=== PATIENT | male | born 1950 | race Caucasian/White ===

== ENCOUNTER 2019-01-14 15:10 | Inpatient (IN) ==
[2019-01-14] MEDS ORDERED: NS 1,000 ML IV ONE (15:38)
[2019-01-14] MEDS ORDERED: ZOSYN 3.375 GM in NS 50 ML IV ONE (15:39)
[2019-01-14] MEDS ORDERED: DUONEB (A & A) INH ONE (15:39)
[2019-01-14] MEDS ORDERED: SOLU-MEDROL IV ONE (15:39)
[2019-01-14] MEDS ORDERED: S2 RACEPINEPHRINE 2.25% INH ONE (15:39)
[2019-01-14] MEDS ORDERED: SOLU-CORTEF IV ONE (15:39)
[2019-01-14] MEDS ORDERED: NS NEB INH SCH (15:45)
--- NOTE | 2019-01-14 16:30 | Diag Imaging Result Doc PS360 ---
EXAM: CHEST-1 VIEW 01/14/2019 HISTORY: POSSIBLE SEPSIS TECHNIQUE: AP portable upright at 1620 COMMENT: There are no previous plain radiographs for comparison. There is an apparent left hilar mass with atelectasis of the left upper lobe, which was also apparently present at the time of the previous CT examination. The right lung remains clear. The heart size and pulmonary vascularity are within normal limits. IMPRESSION: Postobstructive atelectasis/pneumonia in the left upper lobe. Electronically signed by Kyaw Dent 01/14/2019 4:28 PM
[2019-01-14 16:38] LABS: BASO# 0.02 X1000 (0.0-0.2); BASO% 0.1 % (0.0-0.8); EOS# 0.03 X1000 (0.0-0.7); EOS% 0.2 % (0.0-10.0); HEMATOCRIT 47.9 % (42.0-52.0); HEMOGLOBIN 16.1 g/dL (14.0-18.0); IMM GRAN# 0.11 X1000 (0.0-0.04); IMM GRAN% 0.8 % (0.0-0.5); LYMPH# 1.06 X1000 (1.2-3.4); LYMPH% 7.5 % (20.5-51.1); MCH 29.8 PG (27-31); MCHC 33.6 g/dL (33-37); MCV 88.7 FL (81-99); MONO# 0.57 X1000 (0.11-0.59); MPV 10.2 FL (7.4-10.4); NEUT% 87.4 % (42.2-75.2); PLT 248 X1000 (130-400); WBC 14.09 X1000 (4.8-10.8)
[2019-01-14 16:42] LABS: INR 0.88; PROTIME 12.7 Seconds (11.0-16.0); PTT 22.8 Seconds (22.3-41.8)
[2019-01-14] MEDS ORDERED: PULMICORT INH ONE (16:48)
[2019-01-14 17:07] LABS: AGAP 14; ALB/GLOB RATIO 1.9; ALBUMIN 4.6 g/dL (3.5-5.0); ALKALINE PHOSPHATASE 75 U/L (32-122); BUN 18 mg/dL (8-22); CALCIUM 10.1 mg/dL (8.8-10.2); CHLORIDE 96 mmol/L (98-107); CK PROFILE 77 U/L (24-204); COSMO 286; ESTIMATED GFR > 60; GLUCOSE 256 mg/dL (70-104); GOT 20 U/L (10-34); GPT 69 U/L (10-44); POTASSIUM 4.9 mmol/L (3.5-5.1); SODIUM 138 mmol/L (136-145); TCO2 28 mmol/L (25-35)
[2019-01-14 17:12] LABS: URINE SOURCE CLEAN CATCH
[2019-01-14 17:23] LABS: BILIRUBIN URINE NEGATIVE (NEGATIVE); BLOOD URINE NEGATIVE (NEGATIVE); COLOR YELLOW; GLUCOSE URINE >1000 mg/dL (NEGATIVE); KETONE URINE NEGATIVE (NEGATIVE); LEUKOCYTES URINE NEGATIVE (NEGATIVE); NITRITE URINE NEGATIVE (NEGATIVE); PH URINE 6.5; PROTEIN URINE NEGATIVE (NEGATIVE); TURBIDITY URINE CLEAR (CLEAR); UROBILINOGEN URINE NORMAL (NORMAL)
[2019-01-14 17:30] LABS: UR EPITHELIAL CELLS <10 /HPF (<10); URINE BACTERIA NEGATIVE /HPF; URINE RBC <10 /HPF (<10); URINE WBC <10 /HPF (<10)
[2019-01-14] MEDS ORDERED: VANCOMYCIN 1 GM/NS 1 GM/250 ML IVPB IV ONE (17:47)
--- NOTE | 2019-01-14 18:17 | PROVIDER DOCUMENTATION ---
This chart was entered by Marisela Rouse Scribe, acting as scribe for Michael Alicia MD. HPI-Respiratory General - General Source: patient, other (friend) - History of Present Illness-Resp Quality of Pain: reports: fullness Severity in ED: reports: moderate Onset/Duration: reports: other (10hrs) Timing: reports: still present, constant, getting worse Cough Quality/Degree: reports: no cough Episode Frequency: chronic episodes Current Respiratory Medication Therapy: Initiated see nurses note Modifying Factors: worse with: exertion Associated Symptoms: reports: shortness of breath. denies: chest pain/soreness, cough, wheezing Similar Symptoms Previously?: Yes Recently seen or treated by another doctor?: Yes (was recently dx with lung cancer and dc from ) <Michael Alicia - Last Filed: 01/14/19 18:30> <Red Saab - Last Filed: 01/14/19 19:46> - General Chief Complaint: SEPSIS ALERT - D Stated Complaint: THROAT CLOSING UP CANT BREATHE Time Seen by Provider: 01/14/19 15:31 Allergies/Adverse Reactions: Patient Allergies Allergy/AdvReac Type Severity Reaction Status Date / Time Latex, Natural Rubber Allergy SWELLING Verified 01/14/19 19:40 racepinephrine Allergy ANAPHYLAXIS Verified 01/14/19 19:40 Sulfa (Sulfonamide Allergy RASH Verified 01/14/19 19:40 Antibiotics) diazepam [From Valium] AdvReac Mild Unknown Verified 01/14/19 19:40 - History of Present Illness-Resp Nature of Presenting Problem: 68 yowm presents to the ed with his friend. pt sts was recently dx with lung cancer 4 months prior and sts now sts "it feels like my glands in my neck are swollen especially on the right side" no swelling is noted on exam. pt sts he has been seen by ENT without any explanation for the feeling in his neck. pt sts had a recent PET scan and the cancer is only in his lung. pt was dc from 1 week prior and sts he thinks he was let go to soon because while there and on a certain abx he felt much better. pt on exam is sob with exertion and speaking in 3-4 word sentences. pt is on 3 LPM via NC. pt is anxious on exam (Michael Alicia) Review of Systems - Adult - REVIEW OF SYSTEMS - ADULT Constitutional: denies: chills, fever Eyes: reports: no symptoms reported Ears, Nose, Mouth & Throat: reports: see HPI, throat pain, throat swelling. denies: hoarseness Cardiovascular: denies: chest pain, orthopnea, palpitations Respiratory: reports: dyspnea on exertion, shortness of breath. denies: cough, wheezing Gastrointestinal: denies: abdominal pain, diarrhea, nausea, vomiting Genitourinary: reports: no symptoms reported Musculoskeletal: denies: back pain, neck pain Integumentary: reports: no symptoms reported Neurological: denies: dizziness/vertigo, headache/migraines Psychiatric: reports: no symptoms reported Endocrine: reports: no symptoms reported Hematologic/Lymphatic: reports: no symptoms reported Allergic/Immunologic: reports: no symptoms reported All Other Systems: Reviewed and Negative <Michael Alicia - Last Filed: 01/14/19 18:30> Past History - Adult - PAST MEDICAL HISTORY-ADULT Review of Records: reports: Old Records Reviewed, Nursing Assessment Review, Medications Reviewed, Social history reviewed & non-contributory. Major Childhood Illnesses: reports: denies history Cardiovascular: reports: HTN Respiratory: reports: cancer Gastrointestinal: reports: denies history Genitourinary: reports: denies history Musculoskeletal: reports: denies history Hand Dominance: Right Handed Neurological: reports: denies history Psychiatric: reports: denies history Endocrine/Immune: reports: denies history Other Conditions: reports: denies history - PRIOR SURGERIES/PROCEDURES Surgical/Procedure History: reports: bowel surgery, other (nasal and orbital sx) - IMMUNIZATION STATUS Childhood Immunizations: See Nurse Assessment Flu Vaccine: See Nurse Assessment - FAMILY HISTORY Family History: reviewed, not pertinent - SOCIAL HISTORY Smoking: other (vapes) Provider spent 3-5 mins advising pt. on dangers of tobacco.: Discussed manners to quit use, and f/u contacts for add'l counseling. Substance Use: denies Living Situation: family <Michael Alicia - Last Filed: 01/14/19 18:30> Physical Exam-General - PHYSICAL EXAM-ADULT Initial Vital Signs Reviewed: Yes - CONSTITUTIONAL General Appearance: alert, mild distress, anxious - EYES Eyes: PERRL/EOMI, pink conjunctivae - HEAD, EARS, NOSE, MOUTH & THROAT HENMT: moist mucous membranes, dental decay - NECK Neck: full range of motion, supple, normal inspection, other (pt sts "it feels like my glands are swelling" no swelling seen on exam). negative: lymphadenopathy - RESPIRATORY Respiratory: chest non-tender, respiratory distress, stridor, increased rate (24) - CARDIOVASCULAR Cardiovascular: normal peripheral pulses, tachycardia (107) - GASTROINTESTINAL (ABDOMEN) Abdominal Exam: normal bowel sounds, non tender, soft - LYMPHATIC Lymphatic: no adenopathy. negative: cervical node tenderness - MUSCULOSKELETAL Back Exam: normal inspection, no CVA tenderness, no vertebral tenderness Extremity: normal range of motion, non-tender, normal gait, normal inspection - SKIN Integumentary: normal color, normal turgor, warm/dry - NEUROLOGIC Neurologic: grossly normal, no motor/sensory deficits - PSYCHIATRIC Psych/Mental Status: normal mood/affect, normal thought content, normal thought process, oriented x 3, anxious <Michael Alicia - Last Filed: 01/14/19 18:30> Progress - PLAN OF CARE/RESULTS Result Diagrams: 01/14/19 16:08 01/14/19 16:08 - REASSESSMENT Reassessment #1 Time Reassessed: 18:15 Status: improving (Given IVF bolus, IV Vanco/Zosyn for HCAP sepsis, pulmicort and duoneb for stridor, IV hydrocortisone for stress dose steroids and IV solumedrol. Awaiting CT neck for admission) - CHANGE OF SHIFT REPORT (ED Provider) 1 Report Given and Care Transferred to:: [facility] Time of Transfer: 18:16 Items Pending: CT/MRI Results (soft tissue neck) <Michael Alicia - Last Filed: 01/14/19 18:30> - PLAN OF CARE/RESULTS Result Diagrams: 01/14/19 16:08 01/14/19 16:08 <Red Saab - Last Filed: 01/14/19 19:46> - PLAN OF CARE/RESULTS Progress/Plan/Lab Results: Vital Signs - 8 hr 01/14/19 15:15 01/14/19 16:28 01/14/19 16:30 Temperature 97.7 F Pulse Rate 107 H 97 H 97 H Respiratory Rate 21 23 21 Blood Pressure 126/89 O2 Sat by Pulse Oximetry 98 96 95 01/14/19 16:35 01/14/19 16:38 01/14/19 17:31 Temperature Pulse Rate 90 90 94 H Respiratory Rate 22 18 19 Blood Pressure 116/81 O2 Sat by Pulse Oximetry 96 97 98 01/14/19 17:54 01/14/19 19:37 Temperature 98.0 F Pulse Rate 95 H 94 H Respiratory Rate 20 18 Blood Pressure 124/83 143/86 O2 Sat by Pulse Oximetry 94 L 95 01/14/19 17:05 Group A Strep Rapid Antigen - Final Throat Laboratory Results - last 24 hr 01/14/19 01/14/19 01/14/19 16:08 16:08 16:08 WBC 14.09 H RBC 5.40 Hgb 16.1 Hct 47.9 MCV 88.7 MCH 29.8 MCHC 33.6 RDW Std Deviation 16.0 H Plt Count 248 MPV 10.2 Immature Gran % (Auto) 0.8 H Neut % (Auto) 87.4 H Lymph % (Auto) 7.5 L [place] % (Auto) 4.0 Eos % (Auto) 0.2 Baso % (Auto) 0.1 Immature Gran # (Auto) 0.11 H Neut # (Auto) 12.30 H Lymph # (Auto) 1.06 L [place] # (Auto) 0.57 Eos # (Auto) 0.03 Baso # (Auto) 0.02 PT INR PTT (Actin FS) Sodium 138 Potassium 4.9 Chloride 96 L Carbon Dioxide 28 Anion Gap 14 BUN 18 Creatinine 1.0 Estimated GFR/1.73 m2 > 60 BUN/Creatinine Ratio 18 Glucose 256 H Calculated Osmolality 286 Calcium 10.1 Total Bilirubin 0.60 AST 20 ALT 69 H Alkaline Phosphatase 75 Creatine Kinase 77 Troponin T Total Protein 7.0 Albumin 4.6 Globulin 2.4 Albumin/Globulin Ratio 1.9 Plasma Lactate Cortisol 4.1 Urine Source Urine Color Urine Turbidity Urine pH Ur Specific [place] Urine Protein Ur Glucose (Stick) Ur Ketones (Stick) Urine Blood Urine Nitrite Urine Bilirubin Urobilinogen Dipstick Urine Leukocytes Urine WBC (Auto) Urine RBC (Auto) U Epithel Cells (Auto) Urine Bacteria (Auto) 01/14/19 01/14/19 01/14/19 16:08 16:08 16:08 WBC RBC Hgb Hct MCV MCH MCHC RDW Std Deviation Plt Count MPV Immature Gran % (Auto) Neut % (Auto) Lymph % (Auto) [place] % (Auto) Eos % (Auto) Baso % (Auto) Immature Gran # (Auto) Neut # (Auto) Lymph # (Auto) [place] # (Auto) Eos # (Auto) Baso # (Auto) PT 12.7 INR 0.88 PTT (Actin FS) 22.8 Sodium Potassium Chloride Carbon Dioxide Anion Gap BUN Creatinine Estimated GFR/1.73 m2 BUN/Creatinine Ratio Glucose Calculated Osmolality Calcium Total Bilirubin AST ALT Alkaline Phosphatase Creatine Kinase Troponin T < 0.010 Total Protein Albumin Globulin Albumin/Globulin Ratio Plasma Lactate 2.5 H Cortisol Urine Source Urine Color Urine Turbidity Urine pH Ur Specific [place] Urine Protein Ur Glucose (Stick) Ur Ketones (Stick) Urine Blood Urine Nitrite Urine Bilirubin Urobilinogen Dipstick Urine Leukocytes Urine WBC (Auto) Urine RBC (Auto) U Epithel Cells (Auto) Urine Bacteria (Auto) 01/14/19 17:00 WBC RBC Hgb Hct MCV MCH MCHC RDW Std Deviation Plt Count MPV Immature Gran % (Auto) Neut % (Auto) Lymph % (Auto) [place] % (Auto) Eos % (Auto) Baso % (Auto) Immature Gran # (Auto) Neut # (Auto) Lymph # (Auto) [place] # (Auto) Eos # (Auto) Baso # (Auto) PT INR PTT (Actin FS) Sodium Potassium Chloride Carbon Dioxide Anion Gap BUN Creatinine Estimated GFR/1.73 m2 BUN/Creatinine Ratio Glucose Calculated Osmolality Calcium Total Bilirubin AST ALT Alkaline Phosphatase Creatine Kinase Troponin T Total Protein Albumin Globulin Albumin/Globulin Ratio Plasma Lactate Cortisol Urine Source CLEAN CATCH Urine Color YELLOW Urine Turbidity CLEAR Urine pH 6.5 Ur Specific [place] 1.020 Urine Protein NEGATIVE Ur Glucose (Stick) >1000 A Ur Ketones (Stick) NEGATIVE Urine Blood NEGATIVE Urine Nitrite NEGATIVE Urine Bilirubin NEGATIVE Urobilinogen Dipstick NORMAL Urine Leukocytes NEGATIVE Urine WBC (Auto) <10 Urine RBC (Auto) <10 U Epithel Cells (Auto) <10 Urine Bacteria (Auto) NEGATIVE Orders Category Date Time Status Cardiac Monitoring DIRECTED Care 01/14/19 15:24 Active IV Insertion ORDERED Care 01/14/19 15:24 Completed Notify MD of + Sepsis Screen NOW Care 01/14/19 15:24 Active Notify Physician As Ordered Care 01/14/19 15:24 Active CHEST-1 VIEW [RAD] Stat Exams 01/14/19 15:[address] NECK W/CONTRAST [CT] Stat Exams 01/14/19 15:41 Completed BLOOD CULTURE [BLDCUL] Stat Lab 01/14/19 16:20 Results CBC WITH DIFF [HEME] Stat Lab 01/14/19 16:08 Completed CK PROFILE [SP CHEM] Stat Lab 01/14/19 16:08 Completed COMPREHENSIVE METABOLIC PANEL [CHEM] Stat Lab 01/14/19 16:08 Completed CORTISOL Stat Lab 01/14/19 16:08 Completed DIRECT STREP Stat Lab 01/14/19 17:05 Completed LACTATE, PLASMA [CHEM] Lab 01/14/19 16:08 Completed LACTATE, PLASMA [CHEM] Lab 01/14/19 19:25 Received LACTATE, PLASMA [CHEM] Lab 01/14/19 21:30 Uncollected PROTIME WITH INR [COAG] Stat Lab 01/14/19 16:08 Completed PTT [COAG] Stat Lab 01/14/19 16:08 Completed TROPONIN T Stat Lab 01/14/19 16:08 Completed URINALYSIS W/POSS RFLX CULT [URINALYSIS] Stat Lab 01/14/19 17:00 Completed 0.9% Sodium Chloride Inj [Ns] 1,000 ml Med 01/14/19 15:38 Discontinued IV 999 mls/hr Albuterol 2.5MG/Ipratrop 0.5MG [Duoneb (A & A)] Med 01/14/19 15:39 Discontinued 3 ml INH NOW ONE Budesonide [Pulmicort] Med 01/14/19 16:48 Discontinued 0.25 mg INH NOW ONE Hydrocortisone Sod Succinate [Solu-Cortef] Med 01/14/19 15:39 Discontinued 100 mg IV NOW ONE Methylprednisolone Sod Succ [Solu-Medrol] Med 01/14/19 15:39 Discontinued 125 mg IV NOW ONE Piperacillin/Tazobactam [Zosyn] 3.375 gm Med 01/14/19 15:39 Discontinued 0.9% Sodium Chloride Inj [Ns] 50 ml IV NOW Racepinephrine 2.25% [S2 Racepinephrine 2.25%] Med 01/14/19 15:39 Discontinued 1 each INH NOW ONE Sodium Chloride 0.9% Neb [Ns Neb] Med 01/14/19 15:45 Active 5 ml INH DIRECTED Vancomycin 1 gm/Ns Med 01/14/19 17:47 Discontinued 1 gm in 250 ml IV NOW Aerosol Treatments Routine Oth 01/14/19 15:40 Completed Aerosol Treatments Routine Oth 01/14/19 16:48 Completed Aerosol Treatments Stat Ot 01/14/19 15:40 Completed Aerosol Treatments Stat Oth 01/14/19 16:48 Completed Oxygen Device Stat Ot 01/14/19 15:24 Completed Departure <Michael Alicia - Last Filed: 01/14/19 18:30> - Departure Date of Disposition Decision: 01/14/19 Time of Disposition Decision: 19:45 Certified Medical Emergency: Emergent - Critical Care Note This patient required my direct & personal management of CC.: No <Red Saab - Last Filed: 01/14/19 19:46> - Departure DIAGNOSIS: Pneumonia Qualifiers: Pneumonia type: due to unspecified organism Laterality: right Lung location: unspecified part of lung Qualified Code(s): J18.9 - Pneumonia, unspecified organism Disposition: ADMITTED INPATIENT 09 Condition: Stable Referrals and Follow-Ups: Uziel Frank [Primary Care Provider] - Attestation - Physician/ CRISTINA Attestation Patient care was provided by Advanced Practice Provider:: No The physician spent face to face time with patient:: Yes Advanced Practice Provider documentation review:: Supervising physician onsite and consulted in the evaluation and care of this patient. The physician did have a face to face encounter with the patient. <Michael Alicia - Last Filed: 01/14/19 18:30> This chart was documented by the indicated scribe, (Marisela Rouse Scribe) and accurately reflects the services I performed and decisions made by me, Michael Alicia MD, as attested by the provider's signature.
--- NOTE | 2019-01-14 19:24 | Diag Imaging Result Doc PS360 ---
EXAM: CT NECK W/CONTRAST INDICATION: stridor, lung cancer, sepsis TECHNIQUE: This exam was performed using automated exposure control, adjustment of mA or kV according to patient size, and/or use of iterative reconstruction technique. COMPARISON: Prior CT chest dated 12/24/2018. No prior dedicated CT neck is available for comparison. FINDINGS: The salivary glands and thyroid are unremarkable. There is no evidence of significant cervical lymphadenopathy or adenoidal hypertrophy. The upper airway is patent. The larynx is unremarkable. The cervical aerodigestive tract is grossly unremarkable, otherwise. No soft tissue neck masses or cysts are identified. Review of the upper thorax reveals the known left perihilar mass that is causing postobstructive left upper lobe atelectasis. This is stable as compared to the recent chest CT. IMPRESSION: 1.Patent upper airway. Unremarkable neck soft tissues, otherwise. 2.Stable left perihilar lung mass with associated left upper lobe obstructive atelectasis. Electronically signed by Jorge Luis Gomez 01/14/2019 7:21 PM
--- NOTE | 2019-01-14 21:39 | HISTORY AND PHYSICAL ---
PRIMARY CARE PHYSICIAN: Uziel Frank. REASON FOR ADMISSION: Shortness of breath. Upper airway difficulty breathing for the last 2 days. HISTORY OF PRESENT ILLNESS: Mr. Tobias Hayes is a 68-year-old male with a past medical history of type 2 diabetes, hypertension, and lung cancer. Comes in today complaining of a 2-day history of neck sensation of throat narrowing and upper airway difficult breathing. He says he has had these spells intermittently and infrequently in the last couple of months. He was recently discharged from [facility] last week for a pneumonia and sent home on Augmentin for which he has completed treatment. He came to the ER because in addition to the neck swelling and throat narrowing, he had an episode of hemoptysis yesterday but no fever or chills. He said he would estimate it to be about least table spoon amount of blood. He denies orthopnea or PND. On arrival to the ER, the patient was reportedly anxious and was having mild dyspnea on exertion. Today, he states that he also felt that his "neck glands" were swollen today and was having a hard time talking while he was short of breath. He denies any leg swelling. Any chest pain or ischemic type symptoms. No GI or complaints at this point in time. No postnasal drip. REVIEW OF SYSTEMS: Twelve system review was done. No polyuria or polydipsia. Positive findings noted as above. ALLERGIES: He is allergic to racemic epinephrine, latex, natural rubber, sulfur and benzodiazepine, i.e. Valium. HOME MEDICATION: He takes Tessalon 200 mg t.i.d. p.r.n., Pepcid 40 mg daily, guaifenesin 600 mg p.r.n., Ativan 0.5 mg b.i.d. p.r.n., Hyzaar 50/12.5 mg daily, metformin 500 mg daily. He was on a Medrol Dosepak and Zofran 4 mg q.6 p.r.n. SURGICAL HISTORY: Notable for partial colectomy for diverticulosis, lipoma excision, nasal surgery. SOCIAL HISTORY: He stopped smoking 6 months ago. Lives alone. No alcohol or drug use. FAMILY HISTORY: Notable for diabetes and heart disease. LABORATORY WORK: CT scan of the neck showed no abnormality. The chest film showed left upper lobe postobstructive pneumonia. White count 14,000. H H 16 and 47, platelets 248,000, 87% neutrophils. Chemistry showed a BUN 18, creatinine 1.0, glucose 256. AST 20, ALT 69. Troponin is negative. PTT is normal. Urinalysis showed glucose greater than 1000. Strep was negative. EXAMINATION: Vital signs: Blood pressure 152/99, heart rate 110, respiratory rate 20, temperature is 98.1. He is 95% on 2 L. General: Middle-aged man who is not in acute distress. He is anxious. He is oriented to person, place and time. Normal mood and affect. HEENT: Head is normocephalic, atraumatic. Eyes, [place], EOMI. He is anicteric and not pale. ENT exam is totally normal. No exudates or erythema. No signs of cyanosis. Neck: Supple. No JVD or carotid bruit. No thyromegaly. Lymph nodes: No palpable cervical or supraclavicular lymphadenopathy. Chest: Surprisingly is clear to auscultation. Good air entry bilat.. Cardiovascular: First and sounds heard. No gallops, murmurs, rubs. Rhythm is regular. Abdomen: Slightly protuberant, soft. No focal tenderness. Bowel sounds normal. Rectal: Deferred at this time. Extremities: Patient has no edema, clubbing or peripheral cyanosis. Good distal pulse volumes and extremities are warm with good capillary refill. Neurological: Is grossly normal. Skin: Is intact. No breakdown, lesion, erythema. Musculoskeletal: Exam is grossly normal. ASSESSMENT: 1. Left upper lobe postobstructive pneumonia. 2. Type 2 diabetes, uncontrolled. 3. Lung cancer. 4. Hypertension. 5. Upper airway disorder? 6. Vocal cord disorder upper? 7. Globus hystericus. PLAN: 1. Treat patient probably for no more than 5 days with meropenem and Zyvox for probable postobstructive pneumonia, healthcare related. 2. Continue breathing treatments. The patient tells me he has seen 3 different ENT doctors in the past to address this upper airway issue and all of them have told him that they have not been able to find any reason for his symptoms. CT scan of the neck was normal. We will get a 4th opinion with Dr. Alcantara to see him tomorrow. As much as I do not like to discount an organic etiology for his symptoms, globus hystericus, which is a diagnosis of exclusion, should be entertained in this patient. Especially since his demeanor is somewhat of an anxious type. 3. Regarding patient's diabetes, we will cover with sliding scale. cc: MD Uziel Ellison MD MTDD
[2019-01-14] MEDS ORDERED: TYLENOL PO PRN (21:40)
[2019-01-14] MEDS ORDERED: NS 1,000 ML IV SCH (21:40)
[2019-01-14] MEDS ORDERED: CHLORASEPTIC SPRAY MT PRN (22:07)
[2019-01-14] MEDS ORDERED: PERCOCET-10 PO SCH (22:30)
[2019-01-14] MEDS: MERREM 1 GM in NS 50 ML IV SCH (22:32)
[2019-01-14] MEDS: ZYVOX PO SCH (22:33)
[2019-01-14] MEDS: MUCINEX PO SCH (22:33)
[2019-01-14] MEDS: LOVENOX SUBQ SCH ×2 (22:34→23:43)
[2019-01-14] MEDS: HUMALOG SUBQ SCH (22:34)
[2019-01-14] MEDS: DUONEB (A & A) INH SCH (22:43)
[2019-01-15] MEDS ORDERED: PERCOCET-10 PO PRN (00:23)
[2019-01-15] MEDS: DUONEB (A & A) INH SCH ×4 (03:08→21:05)
[2019-01-15] MEDS: ATIVAN PO PRN (03:46)
[2019-01-15] MEDS: MERREM 1 GM in NS 50 ML IV SCH ×4 (03:47→22:20)
[2019-01-15] MEDS: HUMALOG SUBQ SCH ×3 (06:07→22:20)
[2019-01-15 07:12] LABS: HEMATOCRIT 41.9 % (42.0-52.0); IMM GRAN# 0.06 X1000 (0.0-0.04); IMM GRAN% 0.5 % (0.0-0.5); LYMPH% 6.6 % (20.5-51.1); MCH 29.7 PG (27-31); MCHC 33.4 g/dL (33-37); MONO# 0.51 X1000 (0.11-0.59); MONO% 4.2 % (1.7-9.3); MPV 10.2 FL (7.4-10.4); NEUT# 10.79 X1000 (1.4-6.5); NEUT% 88.7 % (42.2-75.2); PLT 191 X1000 (130-400); RBC 4.71 XMIL (4.7-6.1); RDW 15.4 % (11.5-14.5); WBC 12.16 X1000 (4.8-10.8)
[2019-01-15 07:27] LABS: AGAP 13; BUN 18 mg/dL (8-22); CALCIUM 8.2 mg/dL (8.8-10.2); CHLORIDE 100 mmol/L (98-107); COSMO 285; CREATININE 0.8 mg/dL (0.7-1.2); ESTIMATED GFR > 60; GLUCOSE 268 mg/dL (70-104); POTASSIUM 3.7 mmol/L (3.5-5.1); SODIUM 137 mmol/L (136-145); TCO2 24 mmol/L (25-35)
[2019-01-15] MEDS: PEPCID PO SCH (08:52)
[2019-01-15] MEDS: ZYVOX PO SCH ×2 (08:52→22:20)
[2019-01-15] MEDS: HYZAAR 50/12.5 MG PO SCH (08:52)
[2019-01-15] MEDS: MUCINEX PO SCH ×2 (08:52→22:20)
[2019-01-15] MEDS: PERCOCET-10 PO PRN ×3 (13:33→22:28)
--- NOTE | 2019-01-15 13:57 | PROGRESS NOTE ---
DATE: 01/15/2019 SUBJECTIVE: The patient reports feeling fine. Denies any fever or chills. OBJECTIVE: Vitals: Temperature is 98.0, heart rate 78, respiratory rate 20, blood pressure 124/93, O2 saturation 96% on 2 L nasal cannula. General Examination: This is a chronically ill- appearing, 68-year-old, male, lying in bed, in no acute distress. Cardiovascular Examination: S1 and S2 heard. No murmurs, gallops, or rubs. Regular rate and rhythm. Respiratory Examination: Clear bilaterally to auscultation. No work of breathing or using accessory muscles. Abdomen: Soft, nontender to palpation. Bowel sounds present. No organomegaly. Extremities: No clubbing, cyanosis, or edema. Peripheral pulses present in both legs. Neurological Examination: The patient is alert and oriented x3. Moves 4 extremities. Laboratory Data: Reviewed. ASSESSMENT AND PLAN: 1. Left upper lobe postobstructive pneumonia. Patient has been recently discharged from the hospital. As such, we are going to treat this pneumonia like a healthcare-acquired so patient has been started on admission on Zyvox and meropenem. We will continue with the same management. 2. Diabetes mellitus type 2, uncontrolled. The patient is going to be started on sliding scale insulin; in this case, lispro. 3. Hypertension. We will continue with blood pressure medications. 4. Lung cancer. Stable. I do not think we need to consult oncology at this time. 5. Vocal cord disorder. He has been seen by three different ENT doctors who did not find anything wrong in the upper airway. He has been seen by our ENT here who did not find anything wrong so at this point, we will just monitor this patient. cc: Tee Barillas MD
--- NOTE | 2019-01-15 14:30 | CONSULTATION ---
DATE OF CONSULTATION: 01/15/2019 HISTORY OF PRESENT ILLNESS: The patient is the gentleman with a long history of airway issues. Today, he reports that he has cancer in the left lung, and he is undergoing consideration for resection. He has had trouble with shortness of breath and some stridor. He was admitted from the ER last night. He has been in the hospital at [place] for similar issues. While there, he has had at least 2 separate ENT exams of his larynx, which were supposedly normal. He has seen the [facility] in [place] and reports that the ENT there did not see any abnormality in his larynx. Past medical history, family history, review of systems, see his chart. PHYSICAL EXAMINATION: With fiberoptic scope, the left nasal cavity is cannulated and the scope is placed through the nasal cavity into the nasopharynx and into the hypopharynx. The hypopharynx is noted to be normal. The larynx is noted to be normal. The cords move well. The airway is well. I cannot see well into the subglottic area, but what I see appears normal. The base of tongue is normal. IMPRESSION: Normal exam in the larynx. His shortness of breath and stridor and hemoptysis are coming from this area below. Discussed this with the attending physician. cc: Yehuda Ennis MD
[2019-01-15] MEDS: LOVENOX SUBQ SCH (22:22)
[2019-01-16] MEDS: DUONEB (A & A) INH SCH ×7 (03:08→23:08)
[2019-01-16] MEDS: ATIVAN PO PRN (04:02)
[2019-01-16] MEDS: PERCOCET-10 PO PRN ×4 (04:02→18:58)
[2019-01-16] MEDS: MERREM 1 GM in NS 50 ML IV SCH ×3 (04:47→22:30)
[2019-01-16] MEDS: HUMALOG SUBQ SCH ×4 (06:21→22:44)
[2019-01-16 07:14] LABS: BASO# 0.02 X1000 (0.0-0.2); BASO% 0.2 % (0.0-0.8); EOS# 0.11 X1000 (0.0-0.7); EOS% 1.1 % (0.0-10.0); HEMOGLOBIN 13.6 g/dL (14.0-18.0); IMM GRAN# 0.08 X1000 (0.0-0.04); IMM GRAN% 0.8 % (0.0-0.5); LYMPH% 18.1 % (20.5-51.1); MCH 29.8 PG (27-31); MCHC 33.2 g/dL (33-37); MCV 89.7 FL (81-99); MONO# 0.92 X1000 (0.11-0.59); MONO% 9.3 % (1.7-9.3); MPV 10.1 FL (7.4-10.4); NEUT# 7.01 X1000 (1.4-6.5); NEUT% 70.5 % (42.2-75.2); PLT 188 X1000 (130-400); RBC 4.57 XMIL (4.7-6.1); RDW 15.9 % (11.5-14.5); WBC 9.94 X1000 (4.8-10.8)
[2019-01-16 07:41] LABS: AGAP 13; BUN 26 mg/dL (8-22); CALCIUM 8.1 mg/dL (8.8-10.2); CHLORIDE 102 mmol/L (98-107); COSMO 285; CREATININE 0.9 mg/dL (0.7-1.2); ESTIMATED GFR > 60; GLUCOSE 183 mg/dL (70-104); POTASSIUM 3.6 mmol/L (3.5-5.1); SODIUM 138 mmol/L (136-145); TCO2 23 mmol/L (25-35)
[2019-01-16] MEDS: MUCINEX PO SCH ×2 (09:09→22:34)
[2019-01-16] MEDS: HYZAAR 50/12.5 MG PO SCH (09:09)
[2019-01-16] MEDS: PEPCID PO SCH ×2 (09:09→22:34)
[2019-01-16] MEDS: ZYVOX PO SCH ×2 (09:09→22:35)
[2019-01-16] MEDS: ADDERALL PO SCH ×3 (10:29→16:48)
[2019-01-16] MEDS: PRILOSEC PO SCH ×2 (10:30→22:34)
--- NOTE | 2019-01-16 11:13 | PROGRESS NOTE ---
DATE: 01/16/2019 SUBJECTIVE: Patient reports feeling fine. OBJECTIVE: Vital Signs: Temperature 97.6 degrees, heart rate 82, respiratory rate 20, blood pressure 124/84, O2 saturation 97% on 3 L nasal cannula. General Examination: This is a chronically ill-appearing, 68-year-old, male, lying in bed, in no acute distress. Cardiovascular Examination: S1 and S2 heard. No murmurs, gallops, or rubs. Regular rate and rhythm. Respiratory Examination: Coarse breath sounds and wheezing noted in both pulmonary bases. Patient is not using any accessory muscles or having work of breathing. Abdomen: Soft, nontender to palpation. Bowel sounds present. No organomegaly. Extremities: No clubbing, cyanosis, or edema. Peripheral pulses present in both legs. Neurological Examination: The patient is alert and oriented x3. Moves 4 extremities. Laboratory Data: Reviewed. ASSESSMENT AND PLAN: 1. Left upper lobe postobstructive pneumonia. We will continue with Zyvox and meropenem. Clinically, this patient is doing much better. Breathing okay so we will continue with the same management. 2. Diabetes mellitus type 2. We will continue with the sliding-scale insulin and Accu-Chek before meals and also at bedtime. 3. Hypertension. We will continue with blood pressure medications. 4. Lung cancer. Stable. 5. Vocal cord disorder. The patient has been evaluated by ears, nose, and throat, and everything is okay from their standpoint. 6. Disposition. We will continue to monitor this patient closely. cc: Tee Barillas MD
[2019-01-16] MEDS: TUMS EXTRA STRENGTH PO PRN (12:29)
[2019-01-16] MEDS: LOVENOX SUBQ SCH (22:39)
[2019-01-17] MEDS: TUMS EXTRA STRENGTH PO PRN ×3 (00:03→20:58)
[2019-01-17] MEDS: PERCOCET-10 PO PRN ×4 (02:00→20:58)
[2019-01-17] MEDS: DUONEB (A & A) INH SCH ×6 (03:33→23:53)
[2019-01-17] MEDS: HUMALOG SUBQ SCH ×4 (06:24→20:58)
[2019-01-17] MEDS: MERREM 1 GM in NS 50 ML IV SCH ×3 (06:41→20:59)
[2019-01-17 06:47] LABS: BASO# 0.02 X1000 (0.0-0.2); BASO% 0.3 % (0.0-0.8); EOS# 0.15 X1000 (0.0-0.7); EOS% 2.1 % (0.0-10.0); HEMATOCRIT 40.8 % (42.0-52.0); HEMOGLOBIN 13.6 g/dL (14.0-18.0); IMM GRAN# 0.03 X1000 (0.0-0.04); IMM GRAN% 0.4 % (0.0-0.5); LYMPH# 1.35 X1000 (1.2-3.4); LYMPH% 18.9 % (20.5-51.1); MCHC 33.3 g/dL (33-37); MCV 89.9 FL (81-99); MONO# 0.62 X1000 (0.11-0.59); MONO% 8.7 % (1.7-9.3); MPV 9.9 FL (7.4-10.4); NEUT# 4.99 X1000 (1.4-6.5); NEUT% 69.6 % (42.2-75.2); PLT 165 X1000 (130-400); RBC 4.54 XMIL (4.7-6.1); RDW 15.4 % (11.5-14.5); WBC 7.16 X1000 (4.8-10.8)
[2019-01-17] MEDS: MIRALAX PO PRN (06:48)
[2019-01-17 07:05] LABS: AGAP 11; BUN 16 mg/dL (8-22); CALCIUM 8.3 mg/dL (8.8-10.2); CHLORIDE 100 mmol/L (98-107); COSMO 274; CREATININE 0.9 mg/dL (0.7-1.2); ESTIMATED GFR > 60; GLUCOSE 155 mg/dL (70-104); POTASSIUM 3.7 mmol/L (3.5-5.1); SODIUM 135 mmol/L (136-145); TCO2 24 mmol/L (25-35)
[2019-01-17] MEDS: ADDERALL PO SCH ×3 (09:11→16:54)
[2019-01-17] MEDS: ZYVOX PO SCH ×2 (09:11→20:58)
[2019-01-17] MEDS: HYZAAR 50/12.5 MG PO SCH (09:11)
[2019-01-17] MEDS: PEPCID PO SCH ×2 (09:11→20:58)
[2019-01-17] MEDS: MUCINEX PO SCH ×2 (09:11→20:57)
[2019-01-17] MEDS: PRILOSEC PO SCH ×2 (09:13→20:57)
[2019-01-17] MEDS: MUCOMYST 20% INH SCH ×2 (11:13→19:52)
--- NOTE | 2019-01-17 12:02 | PROGRESS NOTE ---
DATE: 01/17/2019 SUBJECTIVE: Patient reports feeling fine. He mentioned while he was in the [facility], he had one AC unit that was apparently full of mold, and he is afraid that he may have caught a fungal infection. OBJECTIVE: Vital Signs: Temperature 97.6 degrees, heart rate 79, respiratory rate 18, blood pressure 125/68, and O2 saturation 98% on room air. General: This is a chronically ill- appearing, 68-year-old male lying in bed in no acute distress. Cardiovascular: S1, S2 heard. No murmurs, gallops, or rubs. Regular rate and rhythm. Respiratory: Bilateral breath sounds. No wheezing noted in both pulmonary bases. The patient is not using any accessory muscles or having work of breathing. Abdomen: Soft. Nontender to palpation. Bowel sounds present. No organomegaly. Extremities: No clubbing, cyanosis, or edema. Peripheral pulses present in both legs. Neurological: Patient is alert and oriented x3. Moves all 4 extremities. LABORATORY DATA: Reviewed. ASSESSMENT AND PLAN: 1. Left upper lobe postobstructive pneumonia. We will continue with Zyvox and meropenem. Considering that according to him, he has been exposed to some mold while he was [facility] a couple of weeks ago, we are going to fluconazole IV to his current treatment. 2. Also, we are going to add Mucomyst for him because he reports that he has very thick secretions that he is not able to spit it out. 3. Diabetes mellitus type 2. We will continue with sliding scale insulin. Accu-Chek before meals and also at bedtime. 4. Hypertension. We will continue with blood pressure medication. 5. Lung cancer. Stable. 6. Vocal cord disorder. Patient evaluated by the ENT doctor and everything was okay. 7. Disposition: We will continue to monitor this patient closely. cc: Tee Barillas MD
[2019-01-17] MEDS: DIFLUCAN 200 MG/NS 200 MG/100 ML IVPB IV SCH (13:13)
[2019-01-18] MEDS: LOVENOX SUBQ SCH ×2 (02:47→23:43)
[2019-01-18] MEDS: DUONEB (A & A) INH SCH ×6 (03:53→23:20)
[2019-01-18] MEDS: HUMALOG SUBQ SCH ×4 (06:44→23:44)
[2019-01-18] MEDS: MERREM 1 GM in NS 50 ML IV SCH ×4 (06:45→23:44)
[2019-01-18 07:31] LABS: BASO# 0.01 X1000 (0.0-0.2); BASO% 0.2 % (0.0-0.8); EOS# 0.14 X1000 (0.0-0.7); EOS% 2.2 % (0.0-10.0); HEMATOCRIT 43.6 % (42.0-52.0); HEMOGLOBIN 14.7 g/dL (14.0-18.0); IMM GRAN# 0.02 X1000 (0.0-0.04); IMM GRAN% 0.3 % (0.0-0.5); LYMPH# 1.17 X1000 (1.2-3.4); LYMPH% 18.8 % (20.5-51.1); MCH 30.1 PG (27-31); MCHC 33.7 g/dL (33-37); MCV 89.2 FL (81-99); MONO# 0.58 X1000 (0.11-0.59); MONO% 9.3 % (1.7-9.3); MPV 10.1 FL (7.4-10.4); NEUT# 4.32 X1000 (1.4-6.5); NEUT% 69.2 % (42.2-75.2); PLT 181 X1000 (130-400); RBC 4.89 XMIL (4.7-6.1); RDW 15.3 % (11.5-14.5); WBC 6.24 X1000 (4.8-10.8)
[2019-01-18] MEDS: MUCOMYST 20% INH SCH ×2 (07:32→19:20)
[2019-01-18 07:57] LABS: AGAP 10; BUN 14 mg/dL (8-22); CALCIUM 8.5 mg/dL (8.8-10.2); CHLORIDE 101 mmol/L (98-107); COSMO 278; CREATININE 0.9 mg/dL (0.7-1.2); ESTIMATED GFR > 60; GLUCOSE 157 mg/dL (70-104); POTASSIUM 3.8 mmol/L (3.5-5.1); SODIUM 137 mmol/L (136-145); TCO2 26 mmol/L (25-35)
[2019-01-18] MEDS: PEPCID PO SCH ×2 (09:39→23:42)
[2019-01-18] MEDS: ADDERALL PO SCH ×3 (09:39→17:10)
[2019-01-18] MEDS: MUCINEX PO SCH ×2 (09:39→20:10)
[2019-01-18] MEDS: ZYVOX PO SCH ×2 (09:39→20:10)
[2019-01-18] MEDS: HYZAAR 50/12.5 MG PO SCH (09:39)
[2019-01-18] MEDS: MIRALAX PO PRN (09:46)
[2019-01-18] MEDS: PERCOCET-10 PO PRN ×3 (09:46→20:10)
[2019-01-18] MEDS: DIFLUCAN 200 MG/NS 200 MG/100 ML IVPB IV SCH (11:43)
[2019-01-18] MEDS: PRILOSEC PO SCH ×4 (17:10→23:43)
[2019-01-18] MEDS: TESSALON PO PRN (20:10)
--- NOTE | 2019-01-18 21:06 | PROGRESS NOTE ---
DATE: 01/18/2019 SUBJECTIVE: Patient reports feeling fine. Reports still some discomfort in the right neck but I explained to him that the CT of the neck and also ENT exploration here in the hospital did not show anything. OBJECTIVE: Vital Signs: Temperature 97.4 degrees, heart rate 81, respiratory rate 18, blood pressure 124/81, O2 saturation 98% on 3 L nasal cannula. This is a 68-year-old male, lying in bed, in no acute distress. Cardiovascular: S1, S2 heard. No murmurs, gallops, or rubs. Regular rate and rhythm. Respiratory: Some coarse breath sounds noted in both pulmonary bases. Patient not using any accessory muscles or having work of breathing. Abdomen: Soft, nontender to palpation. Bowel sounds present. No organomegaly. Extremities: No clubbing, cyanosis, or edema. Peripheral pulses present in both legs. Neurologic: The patient is alert, oriented x3. Moves 4 extremities. LABORATORY DATA: Reviewed. ASSESSMENT AND PLAN: 1. Left upper lobe postobstructive pneumonia. We will continue with Zyvox and meropenem day #4 of treatment. I think he will complete 5 days of antibiotics tomorrow and they will send him home with probably Levaquin or cefdinir. We will add also fluconazole at discharge to complete 10 days of treatment considering that he has been exposed to some mold while he was in the hospital. 2. Diabetes mellitus type 2. We will continue with sliding scale insulin and Accu-Cheks before meals and also at bedtime. 3. Hypertension. We will continue with his current medications. 4. Lung cancer. Stable. 5. Disposition: We will continue to monitor this patient closely. Hopefully we can discharge this patient tomorrow. cc: Tee Barillas MD
[2019-01-18] MEDS: TUMS EXTRA STRENGTH PO PRN (23:42)
[2019-01-19] MEDS: DUONEB (A & A) INH SCH ×3 (02:56→11:03)
[2019-01-19] MEDS: MERREM 1 GM in NS 50 ML IV SCH (05:40)
[2019-01-19] MEDS: PERCOCET-10 PO PRN (05:40)
[2019-01-19] MEDS: HUMALOG SUBQ SCH (06:48)
[2019-01-19 07:16] LABS: BASO# 0.02 X1000 (0.0-0.2); BASO% 0.3 % (0.0-0.8); EOS# 0.22 X1000 (0.0-0.7); EOS% 2.8 % (0.0-10.0); HEMATOCRIT 43.9 % (42.0-52.0); HEMOGLOBIN 14.8 g/dL (14.0-18.0); IMM GRAN# 0.02 X1000 (0.0-0.04); IMM GRAN% 0.3 % (0.0-0.5); LYMPH# 1.29 X1000 (1.2-3.4); LYMPH% 16.3 % (20.5-51.1); MCH 30.2 PG (27-31); MCHC 33.7 g/dL (33-37); MCV 89.6 FL (81-99); MONO# 0.69 X1000 (0.11-0.59); MONO% 8.7 % (1.7-9.3); MPV 10.2 FL (7.4-10.4); NEUT# 5.67 X1000 (1.4-6.5); NEUT% 71.6 % (42.2-75.2); PLT 174 X1000 (130-400); RDW 15.3 % (11.5-14.5); WBC 7.91 X1000 (4.8-10.8)
[2019-01-19] MEDS: MUCOMYST 20% INH SCH (07:17)
--- NOTE | 2019-01-19 08:39 | Diag Imaging Result Doc PS360 ---
CHEST-2 VIEWS - 01/19/2019 INDICATION: postobstructive pna COMPARISON: 01/14/2019 FINDINGS: Stable left upper lobe collapse. No new infiltrates or masses. Heart size and pulmonary vascularity is normal. Stable COPD. IMPRESSION: No change from prior. Electronically signed by Roger Dempsey 01/19/2019 8:36 AM
[2019-01-19] MEDS: ADDERALL PO SCH (09:50)
[2019-01-19] MEDS: HYZAAR 50/12.5 MG PO SCH (09:50)
[2019-01-19] MEDS: PRILOSEC PO SCH (09:51)
[2019-01-19] MEDS: MUCINEX PO SCH (09:51)
[2019-01-19] MEDS: ZYVOX PO SCH (09:52)
[2019-01-19] MEDS: PEPCID PO SCH (09:52)
[2019-01-19] MEDS: TUMS EXTRA STRENGTH PO PRN (10:01)
[2019-01-19] MEDS: TESSALON PO PRN (10:02)
[2019-01-19 11:42] VITALS: BP 133/83
--- NOTE | 2019-01-19 14:52 | DISCHARGE SUMMARY ---
ADMISSION DATE: 01/14/2019 DISCHARGE DATE: 01/19/2019 PRIMARY CARE PHYSICIAN: Dr. Uziel Frank. ADMITTING DIAGNOSES: 1. Left upper lobe postobstructive pneumonia. 2. Type 2 diabetes, uncontrolled. 3. Lung cancer. 4. Hypertension. 5. Upper airway disorder, questionable. 6. Vocal cord disorder, questionable. 7. Globus hystericus. DISCHARGE DIAGNOSES: 1. Left upper lobe postobstructive pneumonia. 2. Diabetes mellitus types 2. 3. Hypertension. 4. Lung cancer. PROCEDURES AND FINDINGS: A CT of the neck with contrast was performed on 01/14/2019, showed a patent upper airway, unremarkable neck soft tissue; showed stable left perihilar lung mass with associated left upper lobe obstructive atelectasis. A chest x-ray on 01/14/2019 showed postobstructive atelectasis and pneumonia in the left upper lobe. Dr. Yehuda Ennis performed an assessment on the patient with a fiberoptic scope down the larynx on 01/14/2019. His impression showed a normal exam in the larynx. The cords appeared to move well, the airway as well. The base of the tongue was normal also, no obstruction. Chest x-ray was performed on 01/19/2019. Showed no change from the prior exam and stable COPD. HOSPITAL COURSE: Mr. Hayes is a 68-year-old male with a past medical history of type 2 diabetes, hypertension, and lung cancer. He came into the ER with a 2-day history of neck sensation that his throat was narrowing and upper airway, and he had difficulty breathing. He has intermittently had these spells for the last few months. He was discharged from [facility] recently for pneumonia and was sent home on Augmentin which he completed this treatment. On admission to the ER, patient was reportedly anxious and having mild dyspnea on exertion. The patient states that he felt like his neck glands were swollen today and was having a hard time talking while he was short of breath. He denied any pain or any GI symptoms. X-ray was performed in the ER. It showed the patient to have postobstructive atelectasis and pneumonia in the left upper lobe. A CT of the neck was performed in the ER which also showed a patent upper airway, stable left hilar lung mass with associated left upper lobe obstructive atelectasis. Dr. Yehuda Ennis was consulted. He found a normal larynx exam when he had used fiberoptic scope down the larynx. He suggested that all the shortness of breath and stridor and hemoptysis were coming from the area below the larynx. Laboratory findings on admit showed a white blood cell count of 14.09 and a plasma lactate of 4. The patient was admitted to the hospital, was placed on IV antibiotics of Zyvox and Merrem. The patient was started on Diflucan a couple of days after admission. The patient stated he had been exposed to mold while at [facility]. The patient is being discharged today home after receiving 5 days of Zyvox and Merrem. He has been discharged on doxycycline, cefuroxime for 10 days, and fluconazole p.o. for 7 days. LABORATORY FINDINGS: White blood cell count 6.24, hemoglobin is 14.7, hematocrit is 43.6, platelet count is 181,000. PT is 12.7; INR is 0.88; PTT is 22.8. Sodium is 137, potassium is 3.8, BUN is 14, creatinine is 0.9, GFR is greater than 60, glucose is 157, calcium is 8.5. Plasma lactate 1.9. Urinalysis is negative. Chest x-ray done on 01/19/2019 showed a stable left upper lobe collapse. No new infiltrates or masses and stable COPD. DISCHARGE MEDICATIONS: 1. Adderall 30 mg p.o. t.i.d. 2. Benzonatate 200 mg 3 times a day p.r.n. 3. Oxycodone HCl/acetaminophen 10/325 one tablet p.o. b.i.d. 4. Metformin XR 500 mg p.o. daily. 5. Guaifenesin ER 600 mg p.o. p.r.n. 6. Lorazepam 0.5 mg p.o. b.i.d. p.r.n. 7. Losartan/hydrochlorothiazide 50/12.5 mg 1 tablet p.o. daily. 8. MiraLAX 17 g p.o. p.r.n. 9. Zofran 4 mg p.o. q.6 hours p.r.n. 10. Famotidine 40 mg p.o. b.i.d. 11. Doxycycline p.o. x10 days. 12. Cefuroxime p.o. x10 days. 13. Fluconazole p.o. x7 days. DISCHARGE DISPOSITION: The patient is to go home with self care. DISCHARGE DIET: Patient is to resume his diabetic diet as tolerated. DISCHARGE INSTRUCTIONS: The patient is to follow up with his hazardous materials waste technician, Dr. Uziel Frank, in 1 week. The patient is to continue all home medications as prescribed per his hazardous materials waste technician and continue on antibiotics as ordered by hospital physician. Dictated by BHUMIKA Ozuna for Tee Barillas MD Addendum: Patient seen and examined by myself. Agree with BHUMIKA note. It reflects my assessment and plan. Patient is being discharged in stable condition. Will be seen by PCP in a week. cc: MD Uziel Graham MTDD
== END 2019-01-19 13:37 | disposition home or self-care (01) | DRG 194 ==
LOC: ED 15:10 → SUATTDRO 20:40 → 3N 20:40
PROVIDERS: ATTEND Internal Medicine
CPT/HCPCS: 70491; 71010; 71020; 71045; 71046; 80048; 80053; 81001; 82533; 82550; 82948; 83605; 84484; 85025; 85610; 85730; 87040; 87081; 87430; 94640; 94761; 94799; 96365; 96367; 96375; 99285; A9270; J1450; J1650; J1720; J1815; J2185; J2543; J2930; J3370; J7030; Q9967; XXXXX

== ENCOUNTER 2019-08-02 12:29 | Inpatient (IN) ==
[2019-08-02] MEDS ORDERED: ASPIRIN PR ONE (12:52)
[2019-08-02] MEDS ORDERED: ASPIRIN PO ONE (12:52)
[2019-08-02] MEDS ORDERED: SOLU-MEDROL IV ONE (13:59)
[2019-08-02] MEDS ORDERED: DUONEB (A & A) INH ONE ×2 (13:59→18:05)
[2019-08-02] MEDS ORDERED: TORADOL IV ONE (13:59)
--- NOTE | 2019-08-02 14:01 | Diag Imaging Result Doc PS360 ---
EXAM: CHEST-2 VIEWS INDICATION: CHEST PAIN TECHNIQUE: 2 views COMPARISON: 07/09/2019 FINDINGS: There has been a prior left pneumonectomy. There is fluid and gas in the left chest cavity that is essentially stable. There is minimal linear scarring at the mid and lower lung zone on the right that is unchanged. The right lung is grossly clear, otherwise. There is leftward mediastinal shift due to the pneumonectomy. The cardiac silhouette is largely obscured by the fluid collection on the left. IMPRESSION: Prior left pneumonectomy with fluid and gas in the left chest cavity that is very similar to the previous study. Electronically signed by Jorge Luis Gomez 08/02/2019 1:58 PM
[2019-08-02 15:44] LABS: ALLEN TEST YES; BE 4.1 mmoll (-3.0-3.0); BLOOD TYPE ARTERIAL; HCO3-(ACT) 28.1 mmoll (20.0-26.0); METHB 0.7 % (0.0-1.5); O2(CT) 14.3 mL/dL (15.0-23.0); O2HB 96.5 % (95.0-99.0); PCO2(98.6) 41 mmHg (35-45); PO2(98.6) 98 mmHg (60-100); SAMPLE BLOOD; SAO2 99.1 % (95.0-100.0); THB 10.4 g/dL (11.5-17.4); pH(98.6) 7.45 (7.35-7.45)
[2019-08-02 15:45] LABS: MODALITY CANNULA
[2019-08-02 17:42] LABS: BASO# 0.01 X1000 (0.0-0.2); BASO% 0.1 % (0.0-0.8); EOS# 0.34 X1000 (0.0-0.7); EOS% 2.4 % (0.0-10.0); HEMOGLOBIN 11.7 g/dL (14.0-18.0); IMM GRAN# 0.06 X1000 (0.0-0.04); IMM GRAN% 0.4 % (0.0-0.5); LYMPH# 2.15 X1000 (1.2-3.4); LYMPH% 15.1 % (20.5-51.1); MCH 23.4 PG (27-31); MCHC 30.8 g/dL (33-37); MCV 76.2 FL (81-99); MONO# 1.21 X1000 (0.11-0.59); MONO% 8.5 % (1.7-9.3); MPV 10.6 FL (7.4-10.4); NEUT% 73.5 % (42.2-75.2); PLT 279 X1000 (130-400); RBC 4.99 XMIL (4.7-6.1); RDW 20.9 % (11.5-14.5); WBC 14.27 X1000 (4.8-10.8)
[2019-08-02 17:50] LABS: INR 1.05; PROTIME 13.8 Seconds (11.0-16.0)
[2019-08-02 17:51] LABS: PTT 26.2 Seconds (22.3-41.8)
--- NOTE | 2019-08-02 17:57 | EKG Report ---
Test Performed on : 08/02/2019 12:40:35 PM Test Reason : CHEST PAIN Blood Pressure : / mmHG Vent. Rate : 092 BPM Atrial Rate : 092 BPM P-R Int : 148 ms QRS Dur : 082 ms QT Int : 328 ms P-R-T Axes : 104 -21 103 degrees QTc Int : 405 ms Normal sinus rhythm. Nonspecific ST and T wave abnormality Abnormal ECG When compared with ECG of 17-FEB-2019 19:07, No significant change was found Unconfirmed Result
[2019-08-02 18:00] LABS: AGAP 11; ALB/GLOB RATIO 1.2; ALBUMIN 3.4 g/dL (3.5-5.0); ALKALINE PHOSPHATASE 77 U/L (32-122); BUN 17 mg/dL (8-22); CALCIUM 8.8 mg/dL (8.8-10.2); CHLORIDE 98 mmol/L (98-107); CK PROFILE 42 U/L (24-204); COSMO 275; CREATININE 0.7 mg/dL (0.7-1.2); ESTIMATED GFR > 60; GLUCOSE 125 mg/dL (70-104); GOT 15 U/L (10-34); GPT 39 U/L (10-44); POTASSIUM 3.8 mmol/L (3.5-5.1); SODIUM 136 mmol/L (136-145); TCO2 27 mmol/L (25-35); TOTAL BILIRUBIN 0.35 mg/dL (0.20-1.00); TOTAL PROTEIN 6.2 g/dL (6.3-8.3)
--- NOTE | 2019-08-02 18:22 | PROVIDER DOCUMENTATION ---
This chart was entered by Jina Wallace Scribe, acting as scribe for Michael Alicia MD. HPI-Respiratory General - General Source: patient - History of Present Illness-Resp Onset/Duration: reports: gradual Timing: reports: getting worse Episode Frequency: chronic episodes Modifying Factors: improves with: oxygen. worse with: exertion Associated Symptoms: reports: chest pain/soreness, short of breath, other (bilateral lower extremity swelling) Similar Symptoms Previously?: No Recently seen or treated by another doctor?: Yes (recent hospital admission at ) <Michael Alicia - Last Filed: 08/02/19 18:48> <Yg Olson - Last Filed: 08/03/19 04:32> - General Chief Complaint: Shortness of Breath Stated Complaint: CP,SOB,HIGH BP Time Seen by Provider: 08/02/19 13:35 Allergies/Adverse Reactions: Patient Allergies Allergy/AdvReac Type Severity Reaction Status Date / Time racepinephrine Allergy Severe ANAPHYLAXIS Verified 08/02/19 17:46 Latex, Natural Rubber Allergy Intermediate SWELLING Verified 08/02/19 17:46 Sulfa (Sulfonamide Allergy Intermediate RASH Verified 08/02/19 17:46 Antibiotics) diazepam [From Valium] AdvReac Mild LETHARGY Verified 08/02/19 17:46 Home Medications: Home Medication List Medication Instructions Recorded Confirmed Last Taken Type Benzonatate 200 mg PO TID PRN 01/14/19 08/02/19 08/02/19 History Famotidine [Pepcid] 40 mg PO Q12HR 01/14/19 08/02/19 08/02/19 History Aspirin EC 81 mg PO DAILY 08/02/19 08/02/19 08/02/19 History Atorvastatin Calcium [Lipitor] 40 mg PO DAILY 08/02/19 08/02/19 08/02/19 History Bisacodyl [Dulcolax] 5 mg PO BID PRN 08/02/19 08/02/19 08/02/19 History Carvedilol 6.25 mg PO BID 08/02/19 08/02/19 08/02/19 History Cephalexin [Keflex] 500 mg PO BID 08/02/19 08/02/19 08/02/19 History Dexamethasone 4 mg PO DAILY 08/02/19 08/02/19 08/02/19 History Fentanyl 25 mcg TD Q3DAYS 08/02/19 08/02/19 08/02/19 History Methocarbamol 500 mg PO Q8HR PRN 08/02/19 08/02/19 08/02/19 History Oxycodone HCl/Acetaminophen 10 - 325 mg PO DAILY 08/02/19 08/02/19 08/02/19 History [Oxycodone-Acetaminophen 10-325] Prednisone 10 mg PO BID 08/02/19 08/02/19 08/02/19 History Sennosides/Docusate Sodium 1 tab PO BID 08/02/19 08/02/19 08/02/19 History [Docusate Sodium-Senna Tablet] - History of Present Illness-Resp Nature of Presenting Problem: Patient is a 68 y/o male presenting to the ED today c/o SOB and chest pain. Patient reports he was admitted at [facility] approximately 2 weeks ago where he was treated for a left sided clavicle fracture. Patient states since returning home, he has had an increased "smothering" feeling with SOB. Patient reports that he has been using his PRN home O2 more frequently at about 3L. Patient reports he has also had increased swelling in his lower extremities. Patient states he has been using a Fentanyl patch to manage his pain from his clavicle fracture. Patient reports history of prior left lobectomy from lung cancer. Denies all other signs/symptoms. (Michael Alicia) Review of Systems - Adult - REVIEW OF SYSTEMS - ADULT Constitutional: denies: chills, fever Eyes: reports: no symptoms reported Ears, Nose, Mouth & Throat: reports: no symptoms reported Cardiovascular: reports: chest pain, edema (bilateral lower extremities) Respiratory: reports: shortness of breath. denies: cough Gastrointestinal: denies: abdominal pain, diarrhea, nausea, vomiting Genitourinary: reports: no symptoms reported Musculoskeletal: reports: no symptoms reported Integumentary: reports: no symptoms reported Neurological: reports: no symptoms reported Psychiatric: reports: no symptoms reported Endocrine: reports: no symptoms reported Hematologic/Lymphatic: reports: no symptoms reported Allergic/Immunologic: reports: no symptoms reported All Other Systems: Reviewed and Negative <Michael Alicia - Last Filed: 08/02/19 18:48> Past History - Adult - PAST MEDICAL HISTORY-ADULT Review of Records: reports: Old Records Reviewed, Nursing Assessment Review, Medications Reviewed, Social history reviewed & non-contributory. Major Childhood Illnesses: reports: denies history Cardiovascular: reports: HTN Respiratory: reports: denies history Gastrointestinal: reports: denies history Obstetrical/Gynecological: reports: denies history Genitourinary: reports: denies history Musculoskeletal: reports: denies history Neurological: reports: denies history Endocrine/Immune: reports: denies history Other Conditions: reports: denies history - PRIOR SURGERIES/PROCEDURES Surgical/Procedure History: reports: other - IMMUNIZATION STATUS Childhood Immunizations: See Nurse Assessment Flu Vaccine: See Nurse Assessment - FAMILY HISTORY Family History: reviewed, not pertinent <Michael Alicia - Last Filed: 08/02/19 18:48> Physical Exam-General - PHYSICAL EXAM-ADULT Initial Vital Signs Reviewed: Yes (tachypnic) - CONSTITUTIONAL General Appearance: alert, mild distress - EYES Eyes: PERRL/EOMI, pink conjunctivae - HEAD, EARS, NOSE, MOUTH & THROAT HENMT: normocephalic/atraumatic, moist mucous membranes - NECK Neck: full range of motion, supple - RESPIRATORY Respiratory: no accessory muscle use, respiratory distress (mild), decreased breath sounds (on left), rhonchi (on left), increased rate, other (shallow respiration; on 3L O2) - CARDIOVASCULAR Cardiovascular: regular rate, rhythm - CHEST (BREASTS) Chest/Breast: other (tender over left sternal clavicle) - GASTROINTESTINAL (ABDOMEN) Abdominal Exam: non tender, soft - LYMPHATIC Lymphatic: no adenopathy - MUSCULOSKELETAL Back Exam: normal inspection Extremity: normal range of motion, normal gait, normal inspection, pedal edema (3-4+ pitting) - SKIN Integumentary: normal color, normal turgor, warm/dry - NEUROLOGIC Neurologic: grossly normal, no motor/sensory deficits - PSYCHIATRIC Psych/Mental Status: normal mood/affect, normal thought content, normal thought process <Michael Alicia - Last Filed: 08/02/19 18:48> Progress - PLAN OF CARE/RESULTS Result Diagrams: 08/02/19 17:33 08/02/19 17:33 - REASSESSMENT Reassessment #1 Time Reassessed: 18:49 Status: improving (Given some neb treatments, iv solumedrol. Probably has some slight left sided infiltrate underneath a large left pleural effusion. States has never had diagnosis of CHF. proBNP consistent with CHF. Needs pleurocentesis and cardiac workup.) - EKG 1 Time of EKG reading by physician:: 12:47 EKG Read and Signed by:: Michael Alicia EKG Interpretation (*Must complete 3 of following elements*): Normal Rate: 92 Rhythm: Normal sinus rhythm QRS: poor R wave progression, other (heavy artifact present) Comments: no STEMI - XRAY 1 XRAY Study: Chest Impression: See EMR Report (EXAM: CHEST-2 VIEWS INDICATION: CHEST PAIN TECHNIQUE: 2 views COMPARISON: 07/09/2019 FINDINGS: There has been a prior left pneumonectomy. There is fluid and gas in the left chest cavity that is essentially stable. There is minimal linear scarring at the mid and lower lung zone on the right that is unchanged. The right lung is grossly clear, otherwise. There is leftward mediastinal shift due to the pneumonectomy. The cardiac silhouette is largely obscured by the fluid collection on the left. IMPRESSION: Prior left pneumonectomy with fluid and gas in the left chest cavity that is very similar to the previous study. Electronically signed by Jorge Luis Gomez 08/02/2019 1:58 PM 08/02/19 1358 Interpreting Physician: Jorge Luis Gomez MD Dictated Date/Time: 08/02/19 1353 cc: Michael Alicia MD; Uziel Frank) - CHANGE OF SHIFT REPORT (ED Provider) 1 Report Given and Care Transferred to:: [facility] Time of Transfer: 19:00 Items Pending: CT/MRI Results (CTA), Physician Consult/Arrival <Michael Alicia - Last Filed: 08/02/19 18:48> - PLAN OF CARE/RESULTS Result Diagrams: 08/02/19 17:33 08/02/19 17:33 - CT/MRI 1 CT Study: Thorax CT Results: emphysema, left pneumonectomy,no PE - CONSULTS/PCP/HOSPITALIST Notification #1 *Consult/PCP/Hospitalist*: Dr. Saavedra, hospitalist Time Discussed: 20:10 Consult Disposition: Admit <Yg Olson - Last Filed: 08/03/19 04:32> - PLAN OF CARE/RESULTS Progress/Plan/Lab Results: Vital Signs - 8 hr 08/02/19 21:00 08/02/19 21:32 08/02/19 22:00 Temperature 98.6 F Pulse Rate 87 83 101 H Respiratory Rate 18 20 Blood Pressure 157/87 152/88 O2 Sat by Pulse Oximetry 95 99 08/02/19 23:00 08/02/19 23:46 08/03/19 00:00 Temperature Pulse Rate 96 H 78 98 H Respiratory Rate 22 16 22 Blood Pressure 142/86 127/84 O2 Sat by Pulse Oximetry 99 96 96 Laboratory Results - last 24 hr 08/02/19 08/02/19 08/02/19 15:25 17:33 17:33 WBC 14.27 H RBC 4.99 Hgb 11.7 L Hct 38.0 L MCV 76.2 L MCH 23.4 L MCHC 30.8 L RDW Std Deviation 20.9 H Plt Count 279 MPV 10.6 H Immature Gran % (Auto) 0.4 Neut % (Auto) 73.5 Lymph % (Auto) 15.1 L Bergen % (Auto) 8.5 Eos % (Auto) 2.4 Baso % (Auto) 0.1 Immature Gran # (Auto) 0.06 H Neut # (Auto) 10.50 H Lymph # (Auto) 2.15 Bergen # (Auto) 1.21 H Eos # (Auto) 0.34 Baso # (Auto) 0.01 PT INR PTT (Actin FS) Specimen Type ARTERIAL Sample Site R RADIAL pH 7.45 pCO2 41 pO2 98 HCO3 28.1 H Base Excess 4.1 H Oxyhemoglobin 96.5 ABG O2 Sat (Calculated) 14.3 L ABG O2 Saturation 99.1 ABG Carboxyhemoglobin 1.90 ABG Methemoglobin 0.7 Amrik Test YES A-a O2 Difference 79.0 Total Hemoglobin 10.4 L Lactate 1.40 Liter Flow 3.0 Blood Gas Modality CANNULA FiO2 % 32.0 Sodium 136 Potassium 3.8 Chloride 98 Carbon Dioxide 27 Anion Gap 11 BUN 17 Creatinine 0.7 Estimated GFR/1.73 m2 > 60 BUN/Creatinine Ratio 24 Glucose 125 H POC Glucose Calculated Osmolality 275 Calcium 8.8 Total Bilirubin 0.35 AST 15 ALT 39 Alkaline Phosphatase 77 Creatine Kinase 42 Troponin T High Sens [id number] Pept Total Protein 6.2 L Albumin 3.4 L Globulin 2.8 Albumin/Globulin Ratio 1.2 Plasma Lactate 0208/02/19 08/02/19 17:33 17:33 17:33 WBC RBC Hgb Hct MCV MCH MCHC RDW Std Deviation Plt Count MPV Immature Gran % (Auto) Neut % (Auto) Lymph % (Auto) Bergen % (Auto) Eos % (Auto) Baso % (Auto) Immature Gran # (Auto) Neut # (Auto) Lymph # (Auto) Bergen # (Auto) Eos # (Auto) Baso # (Auto) PT 13.8 INR 1.05 PTT (Actin FS) 26.2 Specimen Type Sample Site pH pCO2 pO2 HCO3 Base Excess Oxyhemoglobin ABG O2 Sat (Calculated) ABG O2 Saturation ABG Carboxyhemoglobin ABG Methemoglobin Amrik Test A-a O2 Difference Total Hemoglobin Lactate Liter Flow Blood Gas Modality FiO2 % Sodium Potassium Chloride Carbon Dioxide Anion Gap BUN Creatinine Estimated GFR/1.73 m2 BUN/Creatinine Ratio Glucose POC Glucose Calculated Osmolality Calcium Total Bilirubin AST ALT Alkaline Phosphatase Creatine Kinase Troponin T High Sens 40 H [id number] Pept 7285 H Total Protein Albumin Globulin Albumin/Globulin Ratio Plasma Lactate 08/02/19 08/02/19 17:43 19:30 WBC RBC Hgb Hct MCV MCH MCHC RDW Std Deviation Plt Count MPV Immature Gran % (Auto) Neut % (Auto) Lymph % (Auto) Bergen % (Auto) Eos % (Auto) Baso % (Auto) Immature Gran # (Auto) Neut # (Auto) Lymph # (Auto) Bergen # (Auto) Eos # (Auto) Baso # (Auto) PT INR PTT (Actin FS) Specimen Type Sample Site pH pCO2 pO2 HCO3 Base Excess Oxyhemoglobin ABG O2 Sat (Calculated) ABG O2 Saturation ABG Carboxyhemoglobin ABG Methemoglobin Amrik Test A-a O2 Difference Total Hemoglobin Lactate Liter Flow Blood Gas Modality FiO2 % Sodium Potassium Chloride Carbon Dioxide Anion Gap BUN Creatinine Estimated GFR/1.73 m2 BUN/Creatinine Ratio Glucose POC Glucose 110 H Calculated Osmolality Calcium Total Bilirubin AST ALT Alkaline Phosphatase Creatine Kinase Troponin T High Sens [id number]-[id number] Pept Total Protein Albumin Globulin Albumin/Globulin Ratio Plasma Lactate 1.7 Orders Category Date Time Status Admit - [facility] Routine AdmDCTranf 08/02/19 21:32 Active Activity - Up with Assistance ORDERED Care 08/02/19 21:32 Active Apply Mechanical Device [QM] ORDERED Care 08/02/19 21:32 Active Cardiac Monitoring DIRECTED Care 08/02/19 12:52 Completed Intake and Output-Strict ORDERED Care 08/02/19 21:32 Active Oxygen Therapy- ED Nursing DIRECTED Care 08/02/19 12:52 Active Saline Loc NOW Care 08/02/19 12:52 Active Vital Signs Order Q 8-HR ASSESS Care 08/02/19 21:32 Active Z-Document. for Tele Applied ORDERED Care 08/02/19 21:32 Completed Heart Healthy Diet Diet 08/02/19 21:32 Active CHEST-2 VIEWS [RAD] Stat Exams 08/02/19 12:[address] ANGIOGRM PULMONARY ARTERIES [CT] Stat Exams 08/02/19 13:58 Completed ABG [RESP] Routine Lab 08/02/19 15:25 Completed BASIC METABOLIC PANEL [CHEM] Routine Lab 08/03/19 06:00 Ordered BLOOD CULTURE [BLDCUL] Stat Lab 08/02/19 20:00 Results CBC WITH DIFF [HEME] Routine Lab 08/03/19 06:00 Ordered CBC WITH ELECTRONIC DIFF [HEME] Stat Lab 08/02/19 17:33 Completed CK PROFILE [SP CHEM] Stat Lab 08/02/19 17:33 Completed COMPREHENSIVE METABOLIC PANEL [CHEM] Stat Lab 08/02/19 17:33 Completed LACTATE, PLASMA [CHEM] Stat Lab 08/02/19 19:30 Completed PRO B-NATRIURETIC PEPTIDE Stat Lab 08/02/19 17:33 Completed PROTIME WITH INR [COAG] Stat Lab 08/02/19 17:33 Completed PTT [COAG] Stat Lab 08/02/19 17:33 Completed SPUTUM CULTURE WITH GRAM STAIN [RM] Stat Lab 08/02/19 18:52 Uncollected TROPONIN T HIGH SENSITIVITY Stat Lab 08/02/19 17:33 Completed ATORVAstatin [Lipitor] Med 08/03/19 09:00 Active 40 mg PO DAILY Acetaminophen [Tylenol] Med 08/02/19 21:32 Active 650 mg PO Q6H PRN PRN Albuterol 2.5MG/Ipratrop 0.5MG [Duoneb (A & A)] Med 08/02/19 13:59 Discont inued 3 ml INH NOW ONE Albuterol 2.5MG/Ipratrop 0.5MG [Duoneb (A & A)] Med 08/02/19 18:05 D iscontinued 3 ml INH NOW ONE Albuterol 2.5MG/Ipratrop 0.5MG [Duoneb (A & A)] Med 08/02/19 23:30 Active 3 ml INH RTQ4H Aspirin Med 08/02/19 12:52 Discontinued 300 mg ME NOW ONE Aspirin Med 08/02/19 12:52 Discontinued 325 mg PO NOW ONE Aspirin EC Med 08/03/19 09:00 Active 81 mg PO DAILY Benzonatate [Tessalon] Med 08/02/19 21:32 Active 200 mg PO TID PRN PRN Bisacodyl [Dulcolax] Med 08/02/19 21:32 Active 5 mg PO BID PRN PRN Carvedilol [Coreg] Med 08/03/19 09:00 Active 6.25 mg PO BID Famotidine [Pepcid] Med 08/02/19 23:00 Active 40 mg PO Q12HR Fentanyl Med 08/05/19 06:00 Pending 25 mcg TD Q3DAYS Furosemide [Lasix] Med 08/02/19 21:32 Discontinued 40 mg IV Q12H Furosemide [Lasix] Med 08/03/19 08:00 Active 40 mg IV Q12H Furosemide [Lasix] Med 08/02/19 18:42 Discontinued 80 mg IV NOW ONE Ketorolac [Toradol] Med 08/02/19 13:59 Discontinued 15 mg IV NOW ONE Methocarbamol [Robaxin] Med 08/02/19 21:32 Active 500 mg PO Q8H PRN PRN Methylprednisolone Sod Succ [Solu-Medrol] Med 08/02/19 13:59 Discontinued 125 mg IV NOW ONE Methylprednisolone Sod Succ [Solu-Medrol] Med 08/03/19 01:00 Active 60 mg IV Q8H Ondansetron [Zofran] Med 08/02/19 21:32 Active 4 mg IV Q4H PRN PRN Oxycodone/APAP 10 mg/325 mg [Percocet-10] Med 08/02/19 22:42 Active 1 each PO Q6H PRN PRN Piperacillin/Tazobactam [Zosyn] 3.375 gm Med 08/03/19 01:00 Active 0.9% Sodium Chloride Inj [Ns] 50 ml IV Q6H Piperacillin/Tazobactam [Zosyn] 4.5 gm Med 08/02/19 18:52 Discontinued 0.9% Sodium Chloride Inj [Ns] 100 ml IV NOW Aerosol Treatments Routine Oth 08/02/19 13:59 Completed Aerosol Treatments Routine Oth 08/02/19 18:05 Completed Aerosol Treatments Routine Oth 08/02/19 21:32 Completed Aerosol Treatments Stat Oth 08/02/19 13:59 Completed Aerosol Treatments Stat Oth 08/02/19 18:05 Completed Aerosol Treatments Stat Oth 08/02/19 21:32 Completed Telemetry [OM.EQ] Routine Oth 08/02/19 21:32 Active EKG [EKG] Stat Ther 08/02/19 12:52 Draft Transfer/Admit Order [TRANSFER] Routine Transfer 08/02/19 21:08 Completed Departure - Departure Certified Medical Emergency: Emergent - Critical Care Note This patient required my direct & personal management of CC.: No <Michael Alicia - Last Filed: 08/02/19 18:48> - Departure Date of Disposition Decision: 08/03/19 Time of Disposition Decision: 02:19 Certified Medical Emergency: Emergent <Yg Olson - Last Filed: 08/03/19 04:32> - Departure DIAGNOSIS: Dyspnea and respiratory abnormalities, Recurrent pleural effusion on left, New onset of congestive heart failure Disposition: ADMITTED INPATIENT 09 Condition: Stable Attestation - Physician/ CRISTINA Attestation Patient care was provided by Advanced Practice Provider:: No The physician spent face to face time with patient:: Yes Advanced Practice Provider documentation review:: Supervising physician onsite and consulted in the evaluation and care of this patient. The physician did have a face to face encounter with the patient. <Michael Alicia - Last Filed: 08/02/19 18:48> - Physician/ CRISTINA Attestation Patient care was provided by Advanced Practice Provider:: No The physician spent face to face time with patient:: Yes Advanced Practice Provider documentation review:: Supervising physician onsite and consulted in the evaluation and care of this patient. The physician did have a face to face encounter with the patient. <Yg Olson - Last Filed: 08/03/19 04:32> This chart was documented by the indicated scribe, (Jina Wallace Scribe) and accurately reflects the services I performed and decisions made by me, Michael Alicia MD, as attested by the provider's signature.
[2019-08-02] MEDS ORDERED: LASIX IV ONE (18:42)
[2019-08-02] MEDS ORDERED: ZOSYN 4.5 GM in NS 100 ML IV ONE (18:52)
--- NOTE | 2019-08-02 19:05 | Diag Imaging Result Doc PS360 ---
EXAM: CT ANGIOGRM PULMONARY ARTERIES INDICATION: difficulty breathing, history of left pneumonectomy TECHNIQUE: This exam was performed using automated exposure control, adjustment of mA or kV according to patient size, and/or use of iterative reconstruction technique. COMPARISON: 07/09/2019 FINDINGS: There has been a prior left pneumonectomy. There is fluid and air in the pneumonectomy cavity that is stable as compared to the previous study. There is a very small right pleural effusion that is essentially stable. There is stable mild right basilar atelectasis. There is stable pulmonary emphysema on the right. The small subcentimeter nodules in the right upper lobe seen on the previous study are again identified. The largest is actually decreased in prominence. This may represent inflammatory nodules. There is very mild interstitial thickening at the right lung base suggesting mild edema. There is stable linear scarring versus chronic atelectasis in the right middle lobe. There is no evidence of pulmonary embolism. There is no evidence of thoracic aortic aneurysm or dissection. There is mild cardiomegaly. Small shotty nonspecific mediastinal and right hilar lymph nodes are unchanged. There are a few calcified mediastinal and hilar lymph nodes indicating prior granulomatous disease. Limited views of the upper abdomen are essentially unremarkable. IMPRESSION: 1.Prior left pneumonectomy with fluid and gas in the left chest cavity that is stable. 2.A few subcentimeter right upper lobe lung nodules. The largest nodule is actually less prominent than the previous study. 3.Stable very small right pleural effusion and minimal right basilar atelectasis. 4.Minimal interstitial thickening at the right lung base suggesting very mild edema. Electronically signed by Jorge Luis Gomez 08/02/2019 7:02 PM
[2019-08-02] MEDS ORDERED: TYLENOL PO PRN (21:32)
[2019-08-02] MEDS ORDERED: ZOFRAN IV PRN (21:32)
[2019-08-02] MEDS ORDERED: LASIX IV SCH (21:32)
[2019-08-02] MEDS: PEPCID PO SCH (23:00)
[2019-08-02] MEDS: PERCOCET-10 PO PRN (23:37)
[2019-08-02] MEDS: DUONEB (A & A) INH SCH (23:45)
[2019-08-03] MEDS: DUONEB (A & A) INH SCH ×6 (03:32→23:32)
[2019-08-03] MEDS: ROBAXIN PO PRN (03:32)
--- NOTE | 2019-08-03 04:25 | HISTORY AND PHYSICAL ---
PRIMARY CARE PHYSICIAN: Dr. Frank. CHIEF COMPLAINT: Shortness of breath x1 week. HISTORY OF PRESENTING ILLNESS: This is a 68-year-old male with a history of lung cancer, hypertension, COPD, CHF, on home oxygen and diabetes mellitus type 2, who had presented to emergency department with 1-week history of worsening shortness of breath. The patient is on home oxygen and he had increased his oxygen. However, he did not have any improvement. The patient states that he was having difficulty breathing with even minimal exertion. He was seen in the ER. He was dyspneic. He was put on supplemental oxygen and due to his presenting symptoms it was thought that he would need admission for further management. At the time of my examination, patient denied any headache, fever, chills, nausea, vomiting, diarrhea, hemoptysis, melena, but complained of shortness of breath and not feeling well. PAST MEDICAL HISTORY: Includes diabetes mellitus type 2, hypertension, lung cancer, COPD on home oxygen, recent collarbone fracture, and CHF. PAST SURGICAL HISTORY: Colectomy, nasal surgery, left pneumonectomy, back surgery. ALLERGIES: Racemic epinephrine and latex. CURRENT MEDICATIONS: Include Percocet 10 two tablets q.4 hours, prednisone 10 mg p.o. b.i.d., aspirin 81 mg p.o. daily, atorvastatin 40 mg p.o. daily, carvedilol 6.25 mg p.o. b.i.d., famotidine 40 mg p.o. q.12 hours, fentanyl patch 25 mcg transdermal q.3 days, methocarbamol 500 mg p.o. q.8 hours. SOCIAL HISTORY: He is a former smoker. No history of alcohol or illicit drug use. FAMILY HISTORY: No history of coronary artery disease. REVIEW OF SYSTEMS: Fourteen point review of systems is as listed in HPI. Other systems negative. PHYSICAL EXAMINATION: GENERAL: Cooperative, friendly male. He is resting more comfortably now. VITAL SIGNS: Temperature 97.4 degrees, pulse 95, respirations 20, blood pressure 143/92. HEENT: Atraumatic, normocephalic. Extraocular movements intact. PERRLA. NECK: No masses. CHEST: Rhonchi. CARDIOVASCULAR: Regular rate and rhythm. ABDOMEN: Soft. Positive bowel sounds. EXTREMITIES: +1 edema. NEUROLOGIC: He is awake, alert, oriented x3. GENITOURINARY: No bladder distention. SKIN: Warm. LABORATORIES AND STUDIES: PH is 7.45. WBC is 14.27, hemoglobin 11.7, hematocrit 38.0, platelets 279,000. Sodium 136, potassium 3.8, chloride 98, CO2 is 27, BUN is 17, creatinine 0.7, glucose is 125. ProBNP is 7285. Pulmonary arteriogram shows a few subcentimeter right upper lobe nodules, shows also right basilar atelectasis. ASSESSMENT: This is a 68-year-old male with a history of chronic obstructive pulmonary disease on home oxygen, congestive heart failure, lung cancer, hypertension, diabetes mellitus type 2, who had presented to the emergency department with a 1 week history of worsening shortness of breath. He was evaluated in the emergency department and due to his presenting symptoms he will require admission for further management. 1. Chronic obstructive pulmonary disease exacerbation. 2. Suspected congestive heart failure. 3. History of lung cancer. 4. Diabetes mellitus type 2. 5. Hypertension. PLAN: 1. We will admit patient to medical floor with telemetry. 2. We will continue with DuoNebs, IV antibiotics, IV Solu-Medrol, and supplemental oxygen. 3. Continue with gentle diuresis, Lasix, and check echocardiogram. 4. We will obtain previous records regarding his lung cancer. 5. We will monitor blood glucose, put the patient on sliding scale insulin regimen. 6. We will monitor blood pressure, resume antihypertensive agent. 7. Put patient on DVT prophylaxis with SCDs. 8. We will continue to follow, reassess, and make further recommendation based on patient's clinical course. cc: Omid Saavedra MD
[2019-08-03] MEDS: SOLU-MEDROL IV SCH ×2 (05:29→09:29)
[2019-08-03] MEDS: ZOSYN 3.375 GM in NS 50 ML IV SCH ×2 (05:30→09:05)
[2019-08-03 05:31] LABS: HEMATOCRIT 35.3 % (42.0-52.0); IMM GRAN# 0.03 X1000 (0.0-0.04); IMM GRAN% 0.3 % (0.0-0.5); LYMPH% 3.8 % (20.5-51.1); MCH 23.5 PG (27-31); MCHC 31.2 g/dL (33-37); MCV 75.3 FL (81-99); MONO# 0.17 X1000 (0.11-0.59); MONO% 1.6 % (1.7-9.3); MPV 10.7 FL (7.4-10.4); NEUT# 9.89 X1000 (1.4-6.5); NEUT% 94.3 % (42.2-75.2); PLT 304 X1000 (130-400); RBC 4.69 XMIL (4.7-6.1); RDW 20.5 % (11.5-14.5); WBC 10.49 X1000 (4.8-10.8)
[2019-08-03] MEDS: DILAUDID IV PRN ×4 (05:44→20:46)
[2019-08-03 06:01] LABS: AGAP 14; BUN 25 mg/dL (8-22); CHLORIDE 96 mmol/L (98-107); COSMO 290; CREATININE 0.9 mg/dL (0.7-1.2); ESTIMATED GFR > 60; GLUCOSE 237 mg/dL (70-104); POTASSIUM 4.3 mmol/L (3.5-5.1); SODIUM 139 mmol/L (136-145); TCO2 29 mmol/L (25-35)
[2019-08-03 06:45] LABS: LYMPHS 4 % (21-51); MONO 1 % (1-9); SEGS 95 % (42-75)
[2019-08-03] MEDS: PEPCID PO SCH ×2 (09:05→20:46)
[2019-08-03] MEDS: ASPIRIN EC PO SCH (09:05)
[2019-08-03] MEDS: LASIX IV SCH ×2 (09:05→20:46)
[2019-08-03] MEDS: COREG PO SCH ×2 (09:29→20:46)
[2019-08-03] MEDS: LIPITOR PO SCH (09:29)
[2019-08-03] MEDS: TESSALON PO PRN ×2 (11:45→20:55)
[2019-08-03] MEDS: PERCOCET-10 PO PRN ×3 (11:45→23:32)
--- NOTE | 2019-08-03 12:55 | PROGRESS NOTE ---
DATE: 08/03/2019 INTERVAL HISTORY: No acute events overnight. SUBJECTIVE: Mr. Hayes says he continues to experience left-sided rib cage pain. He says he wants intravenous Dilaudid. He denies any cough or unusual shortness of breath. However, he said that he has been feeling short of breath and has had increasing lower extremity edema for about 2 weeks' duration. OBJECTIVE: Vital Signs: Temperature 97.9 degrees, pulse 92, respiratory rate 18, blood pressure 158/90, saturating 95% on 2 L nasal cannula. When I checked his oxygen saturation, he was saturating 94% on room air as well. General: Not in acute distress. HEENT: Oral cavity is moist. Lungs: He has inspiratory crackles without any wheeze or rhonchi on right hemithorax. He has diminished lung sounds on the left hemithorax, where he had pneumonectomy. Heart: S1, S2 normal. No murmur or gallop. Abdomen: Soft, nontender. Extremities: He has bilateral lower extremity edema. He also has elevated jugular venous pressure up to his jaw bone. Input and output not charted appropriately. MICROBIOLOGY: No positive data. IMAGING: No new imaging. Pulmonary arteriogram previously had left pneumonectomy with fluid and gas in the left chest cavity, a few subcentimeter right upper lobe lung nodules, right-sided mild pleural effusion, and mild pulmonary edema. ASSESSMENT AND PLAN: 1. Subjective shortness of breath and lower extremity edema. Differential includes acute cor pulmonale, acute systolic congestive heart failure versus others. On my examination, he does not have any wheeze, fever, and his leukocytosis is significantly improved from yesterday. I will stop his intravenous antibiotics and intravenous steroids, and will monitor him. 2. History of chronic obstructive pulmonary disease and recently diagnosed hypoxic respiratory failure. He has been on home oxygen 2 to 3 liters since about 2 weeks. I will continue him on inhaled bronchodilators and Tessalon. 3. Reported history of congestive heart failure. This is unclear as the patient says he did not believe he had heart failure. There is no echocardiogram. I will get electrocardiogram. I will trend troponins, and get an echocardiogram. Continue intravenous Lasix with close input and output monitoring. 4. Left-sided lung cancer, status post left pneumonectomy around 01/2019. The patient also had right lung nodules, and he is following up with Oncology and Pulmonology outpatient, and he is supposed to get a PET scan in about 48 hours outpatient. He also underwent bronchoscopy with biopsy about 2 weeks ago. If needed, I will consult Pulmonology. 5. Left-sided rib cage pain. It is reproducible on palpation, and this is likely related to musculoskeletal chest pain due to his recent surgery. He was in significant distress on my examination, so I will start him on intravenous hydromorphone for 24 hours, and I will stop it after that. He is on home fentanyl patch and Percocet. 6. Disposition. Monitor the patient inside the hospital. Plan of care discussed with the patient, and his questions have been satisfactorily answered. cc: Manuel Penn MD
[2019-08-03] MEDS: LIDODERM TOP SCH ×2 (13:21→13:22)
--- NOTE | 2019-08-03 15:14 | ECHO REPORT ---
ORDER DATE: 08/03/2019 INDICATION: COPD, history of lung cancer, possible CHF. FINDINGS: 1. The right atrium is mildly enlarged at 4.5 cm. 2. Mild tricuspid regurgitation. Insufficient data to estimate RV systolic pressure. 3. The right ventricle is poorly visualized but appears to be enlarged and with likely reduced RV systolic function. 4. No significant pulmonic insufficiency. 5. Mild left atrial enlargement at 4 cm. 6. No mitral valve prolapse. Mild mitral regurgitation. No mitral stenosis. 7. The left ventricle is dilated with an end-diastolic dimension of 6.3 cm. Normal wall thicknesses with a posterior and interventricular septal wall thickness of 1.1 and 0.9 cm respectively. The LV systolic function is difficult to estimate due to poor resolution of the endocardial borders. It is estimated that the ejection fraction is in the range of 30 to 35 percent with global hypokinesis. Again, the left ventricle appears to be dilated. 8. Aortic valve opens well. It is trileaflet. Trace insufficiency. No stenosis. 9. Aorta appears normal in visualized segments. 10. No clear evidence of pericardial effusion is identified. cc: MD Manuel Garcia MD
[2019-08-03] MEDS: MUCINEX DM PO SCH (20:46)
[2019-08-04] MEDS: DUONEB (A & A) INH SCH ×6 (03:58→23:00)
[2019-08-04] MEDS: DILAUDID IV PRN (06:05)
[2019-08-04 06:42] LABS: BASO# 0.01 X1000 (0.0-0.2); BASO% 0.1 % (0.0-0.8); EOS# 0.13 X1000 (0.0-0.7); HEMOGLOBIN 11.2 g/dL (14.0-18.0); IMM GRAN# 0.05 X1000 (0.0-0.04); IMM GRAN% 0.4 % (0.0-0.5); LYMPH# 1.73 X1000 (1.2-3.4); LYMPH% 12.7 % (20.5-51.1); MCH 23.4 PG (27-31); MCHC 31.1 g/dL (33-37); MCV 75.2 FL (81-99); MONO# 1.06 X1000 (0.11-0.59); MONO% 7.8 % (1.7-9.3); MPV 10.7 FL (7.4-10.4); NEUT# 10.59 X1000 (1.4-6.5); PLT 309 X1000 (130-400); RBC 4.79 XMIL (4.7-6.1); RDW 20.7 % (11.5-14.5); WBC 13.57 X1000 (4.8-10.8)
[2019-08-04 06:58] LABS: AGAP 14; BUN 36 mg/dL (8-22); CALCIUM 9.1 mg/dL (8.8-10.2); CHLORIDE 98 mmol/L (98-107); CHOLESTEROL 131 mg/dL (0-200); COSMO 292; CREATININE 1.1 mg/dL (0.7-1.2); ESTIMATED GFR > 60; GLUCOSE 140 mg/dL (70-104); HDL 76 mg/dL (35-55); LDL 38 mg/dL; SODIUM 141 mmol/L (136-145); TCO2 29 mmol/L (25-35); TRIGLYCERIDES 85 mg/dL (39-160); VLDL 17 mg/dL
--- NOTE | 2019-08-04 07:09 | EKG Report ---
Test Performed on : 08/03/2019 12:58:47 PM Test Reason : Follow up ST T abnormality Blood Pressure : / mmHG Vent. Rate : 085 BPM Atrial Rate : 085 BPM P-R Int : 140 ms QRS Dur : 092 ms QT Int : 382 ms P-R-T Axes : 010 -14 069 degrees QTc Int : 454 ms Normal sinus rhythm. Possible Left atrial enlargement Nonspecific T wave abnormality Abnormal ECG Confirmed by Velma Durham MD ([id number]) on 08/06/2019 12:12:59 PM
[2019-08-04] MEDS: LASIX IV SCH ×2 (10:24→20:58)
[2019-08-04] MEDS: PEPCID PO SCH ×2 (10:24→20:58)
[2019-08-04] MEDS: COREG PO SCH ×2 (10:25→20:58)
[2019-08-04] MEDS: LIPITOR PO SCH (10:25)
[2019-08-04] MEDS: TESSALON PO PRN (10:25)
[2019-08-04] MEDS: ASPIRIN EC PO SCH (10:26)
[2019-08-04] MEDS: PERCOCET-10 PO PRN ×2 (10:26→16:50)
[2019-08-04] MEDS: MUCINEX DM PO SCH ×2 (10:39→20:58)
[2019-08-04] MEDS: LIDODERM TOP SCH (10:40)
[2019-08-04] MEDS: ROBAXIN PO PRN (10:58)
[2019-08-04] MEDS: DULCOLAX PO PRN (10:59)
[2019-08-04] MEDS ORDERED: DUONEB (A & A) INH ONE (12:34)
--- NOTE | 2019-08-04 14:24 | PROGRESS NOTE ---
DATE: 08/04/2019 INTERVAL HISTORY: No acute events overnight. SUBJECTIVE: Mr. Hayes is feeling better. He states his shortness of breath is significantly better. Digoxin level has improved. VITALS: Temperature 97.6 degrees, pulse 80, respiratory 18, blood pressure 119/78, saturating 94% on room air. PHYSICAL EXAMINATION: General: He is not in acute distress. Oral cavity: Moist. Lungs: He has diminished lung sounds in the left hemithorax. He has inspiratory crackles. Heart: S1, S2 normal. No gallop, rub or murmur. Abdomen: Soft, nontender. He has bilateral lower extremity edema, which appears to be better than before. Input and output -1.7 L yesterday. LABS: Suggestive of mild leukocytosis. Hemoglobin 11.2, platelet 309. Normal electrolytes with creatinine of 1.1. MICROBIOLOGY: No positive data. IMAGING: Echocardiogram performed yesterday had ejection fraction of 30 to 35 percent with global hypokinesia with dilated left ventricle. ASSESSMENT AND PLAN: 1. Shortness of breath, lower extremity edema and acute hypoxic respiratory failure, likely due to acute systolic congestive heart failure. Continue intravenous diuretic. Echocardiogram suggests ejection fraction of 35 to 40 percent. Continue carvedilol and losartan. Cardiology team has been consulted. Further investigation really would depend on his status of the cancer. 2. History of chronic obstructive pulmonary disease and recently diagnosed hypoxic respiratory failure. He has been on oxygen about 2 liters/minute since last 2 to 3 weeks. I will continue to withhold bronchodilators and Tessalon. 3. Left-sided lung cancer status post left pneumonectomy around January 2019. The patient also had right lung nodules, and he was following up with Oncology and Pulmonology outpatient. He is supposed to get a PET scan on August 05. He also underwent bronchoscopy with biopsy about 2 weeks ago. I will try and get in touch and will obtain records from his outpatient oncology and pulmonology office visits. If his cancer is localized, he may need further cardiovascular investigations inpatient versus outpatient. If he had metastatic cancer, then cardiovascular disease could become secondary. The patient reportedly states that he his lymph node biopsy recently did not detect any cancer. 4. Left-sided chest wall pain, likely musculoskeletal chest pain. He had pneumonectomy in January 2019, and since he has been experiencing that pain, I will continue him on his home fentanyl patch and Percocet. I will stop intravenous opioids today. DISPOSITION: Continue to monitor patient inside the hospital. Plan of care discussed with him. His questions have been answered. ADDENDUM: I had a phone conversation with patient's breakfast host and according to his knowledge, patient did not have any metastasis. Records from Oncologist office have been requested and are pending. cc: Manuel Penn MD MTDD
--- NOTE | 2019-08-04 14:45 | CARDIOLOGY CONSULTATION ---
DATE: 08/03/2019 REASON FOR CONSULTATION: Chest pain, LV dysfunction. HISTORY: Mr. Hayes is a 70-year-old gentleman who underwent surgery for lung cancer with left pneumonectomy at [facility], has history of COPD, LV dysfunction, diabetes. He came to the emergency room with shortness of breath and chest discomfort. He says he has fractured his left clavicle and has severe pain. The exact nature of the fracture has not known. He was told that he has had that when he was in [place]. He also complains of chest discomfort with significant pain on palpation. His left inframammary area is tender to touch as well which he has noticed. He has been taking his medications which she was prescribed in [place]. He had a workup and underwent surgery in January 2019., Subsequent discharge on 05/01/2019. 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 He was evaluated on 06/23/2019 by surgeons in [place]. At that time also he had complained of pain at the site of insertion as well. He was noted to have LV dysfunction during his hospitalization at [place]. Please see the enclosed records. There is no history of fevers or chills. PAST MEDICAL HISTORY: 1. Lung cancer, status post left pneumonectomy. 2. 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 3. History of hepatitis C non active, history of cirrhosis. 4. Gastroesophageal reflux disease. 5. LV dysfunction. 6. Diverticulitis. 7. Hypertension. 8. History of pneumonia. 9. History of narcolepsy. 10. COPD on home oxygen. 11. History of recent collarbone fracture. OTHER SURGERIES: 1. Colectomy. 2. Nasal surgery. 3. Back surgery. CURRENT MEDICATIONS: Percocet 10, prednisone 10 b.i.d., aspirin 81 mg a day, atorvastatin 40, Coreg 6.25 b.i.d., famotidine 40, fentanyl patch, methocarbamol. SOCIAL HISTORY: He is a former smoker. No history of alcohol or illicit drug abuse. PHYSICAL EXAMINATION: Blood pressure 143/92 when he came in.Neck: Jugular venous pressure was normal. Cardiovascular: First and second heart sounds were heard. Lungs: Scattered crepitations with few rhonchi. Diminished breath sounds in the left hemithorax where he had pneumonectomy. Abdomen: Soft, nontender. Extremities: Mild edema. LABORATORY EXAMINATION: Revealed sodium 139, potassium 4.3, BUN 25, creatinine 0.9. ProBNP 7285. Cardiac enzymes were negative. He had a pulmonary arteriogram done which revealed prior left pneumonectomy with fluid and gas in the left chest cavity that is stable. Left right upper nodule. Right pleural effusion. Minimal basilar atelectasis. Minimal interstitial thickening at right base suggestive of early edema. Echocardiogram revealed ejection fraction of 35 to 40 percent. Electrocardiogram revealed normal sinus rhythm, no ST-T changes to suggest ischemia or infarction. ASSESSMENT AND PLAN: Mr. Tobias Hayes is a 68-year-old gentleman with history of lung cancer status post pneumonectomy, fracture of his clavicle in the past. Has had repair of his bronchopleural fistula again in 2019. Has history of COPD, LV dysfunction, heart failure comes with complaints of shortness of breath and pain in his clavicle as well as severe tenderness in his inframammary region. He had this tenderness at the surgery sites while evaluated by the surgeons in [place] as well. From a cardiac standpoint, he has LV dysfunction. He is on Coreg. Would recommend adding ABEBA inhibitors to his medical regimen. He is on Lasix 40 mg IV twice daily. Would transition to p.o. medications of Lasix. As far as his pain is concerned he complains of having had fracture of the left collarbone with severe tenderness and also tenderness at the inframammary region on the life left side. This inframammary pain could be related to sites of surgery. However, given his malignancy would recommend rule out metastatic osteolytic lesions in the collarbone as well as in the ribcage. Would recommend continuing all his other medications as planned for gastroesophageal reflux disease. For pain management and for hyperlipidemia. Thank you for the consult. cc: Abdias Koroma MD
[2019-08-04] MEDS ORDERED: ADDERALL PO SCH (21:00)
[2019-08-05] MEDS: PERCOCET-10 PO PRN ×4 (02:37→21:04)
[2019-08-05] MEDS: DUONEB (A & A) INH SCH ×6 (03:32→22:53)
[2019-08-05] MEDS ORDERED: DURAGESIC 25 MICROGM/HR PATCH TD SCH (06:00)
[2019-08-05 07:43] LABS: AGAP 13; BASO# 0.01 X1000 (0.0-0.2); BASO% 0.1 % (0.0-0.8); BUN 38 mg/dL (8-22); CALCIUM 8.4 mg/dL (8.8-10.2); CHLORIDE 97 mmol/L (98-107); COSMO 287; CREATININE 0.9 mg/dL (0.7-1.2); EOS# 0.34 X1000 (0.0-0.7); ESTIMATED GFR > 60; GLUCOSE 133 mg/dL (70-104); HEMATOCRIT 36.7 % (42.0-52.0); HEMOGLOBIN 11.3 g/dL (14.0-18.0); IMM GRAN# 0.07 X1000 (0.0-0.04); IMM GRAN% 0.6 % (0.0-0.5); LYMPH# 1.42 X1000 (1.2-3.4); LYMPH% 12.4 % (20.5-51.1); MCH 23.1 PG (27-31); MCHC 30.8 g/dL (33-37); MCV 75.1 FL (81-99); MONO# 1.11 X1000 (0.11-0.59); MONO% 9.7 % (1.7-9.3); MPV 10.5 FL (7.4-10.4); NEUT# 8.52 X1000 (1.4-6.5); NEUT% 74.2 % (42.2-75.2); PLT 280 X1000 (130-400); POTASSIUM 3.8 mmol/L (3.5-5.1); RBC 4.89 XMIL (4.7-6.1); RDW 20.7 % (11.5-14.5); SODIUM 138 mmol/L (136-145); TCO2 28 mmol/L (25-35); WBC 11.47 X1000 (4.8-10.8)
--- NOTE | 2019-08-05 08:28 | Diag Imaging Result Doc PS360 ---
EXAM: CHEST-PORTABLE HISTORY: dyspnea TECHNIQUE: Single view COMPARISON: 08/02/2019 FINDINGS: There is complete opacification of the left hemithorax similar to the prior exam. There is a left-sided hydropneumothorax. There are surgical clips in the left hilum. The mediastinum is shifted to the left. Right lung is well expanded. Mild pulmonary edema. No consolidation in the right lung. IMPRESSION: No significant interval change. Electronically signed by Nirav Pineda 08/05/2019 8:25 AM
[2019-08-05] MEDS: ADDERALL PO SCH ×2 (08:48→12:22)
[2019-08-05] MEDS: PEPCID PO SCH ×2 (08:48→21:05)
[2019-08-05] MEDS: MUCINEX DM PO SCH ×2 (08:48→21:07)
[2019-08-05] MEDS: ASPIRIN EC PO SCH (08:49)
[2019-08-05] MEDS: LIPITOR PO SCH (08:50)
[2019-08-05] MEDS: LASIX IV SCH ×2 (08:51→21:05)
[2019-08-05] MEDS: COREG PO SCH ×2 (08:51→21:05)
[2019-08-05] MEDS: LIDODERM TOP SCH (09:07)
[2019-08-05] MEDS: DULCOLAX PO PRN (10:01)
[2019-08-05] MEDS: COZAAR PO SCH (10:01)
--- NOTE | 2019-08-05 13:49 | Diag Imaging Result Doc PS360 ---
EXAM: CLAVICLE-LEFT HISTORY: recent fall/pain TECHNIQUE: Two views COMPARISON: None. FINDINGS: No fracture. No dislocation. No separation at the acromioclavicular joint. Left hydropneumothorax. IMPRESSION: No acute bony injury. Electronically signed by Nirav Pineda 08/05/2019 1:46 PM
[2019-08-05] MEDS: TESSALON PO PRN ×2 (14:57→21:05)
--- NOTE | 2019-08-05 20:36 | PROGRESS NOTE ---
DATE: 08/05/2019 SUBJECTIVE: The patient is resting comfortably in bed. He is sitting up at the edge of the bed. He complained continues to complain of left clavicular pain. He states that he has been standing up and walking with physical therapy. He reports that he has not had a bowel movement yet. OBJECTIVE: Vital Signs: Temperature 97.6 degrees, blood pressure 126/78, heart rate 76, respirations 18, O2 saturations 100% on 3 L nasal cannula. Urine output 3.4 L. General: This is a chronically ill-appearing elderly male sitting at the edge of the bed in no acute distress. Heart: S1, S2 normal. Regular rate and rhythm. Lungs: Equal air entry bilaterally. No wheezing. No rales. No rhonchi. Abdomen: Positive bowel sounds. Soft, nontender, nondistended. Extremities: No edema, no cyanosis. Neurologic: The patient is alert and oriented x4. LABS: White blood cell count 11, hemoglobin 11, hematocrit 36, platelets 280,000. Sodium 138, potassium 3.8, chloride 97, CO2 28, BUN 38, creatinine 0.9 glucose 133. IMAGING PROCEDURE: Chest x-ray shows left-sided hydro pneumothorax. The mediastinum is shifted to the left. Right lung has no consolidation. Clavicle x-ray shows no fracture, no dislocation. ASSESSMENT AND PLAN: 1. Chronic hypoxemic respiratory failure. Multifactorial. The patient is being treated for congestive heart failure exacerbation. He appears to be improving. We will continue on diuretic therapy and supplemental oxygen. 2. Acute systolic congestive heart failure exacerbation. Continue on diuretic therapy. The patient is responding well. We will also continue on Coreg and losartan. 3. Constipation. We will start the patient on MiraLAX and Colace. 4. Chronic obstructive pulmonary disease. Stable. 5. Status post left pneumonectomy. Stable. 6. Right upper lobe lung nodule. The patient is under the care of the radio operator ground and oncologist as outpatient. We will make sure that the patient has follow-up scheduled. 7. History of lung cancer status post left pneumonectomy. Aware. 8. Hypertension. Controlled. Continue on the current antihypertensive regimen. 9. Deep vein thrombosis prophylaxis will start the patient on Lovenox. 10. Disposition. Once the patient is medically stable, he will be discharged home. cc: Blanca Resendez MD
[2019-08-06] MEDS: DUONEB (A & A) INH SCH ×6 (03:08→22:44)
[2019-08-06] MEDS: PERCOCET-10 PO PRN ×3 (05:15→20:46)
[2019-08-06 05:36] LABS: HEMATOCRIT 37.4 % (42.0-52.0); HEMOGLOBIN 11.6 g/dL (14.0-18.0); MCH 23.4 PG (27-31); MCV 75.4 FL (81-99); MPV 10.4 FL (7.4-10.4); RBC 4.96 XMIL (4.7-6.1); RDW 21.1 % (11.5-14.5); WBC 9.98 X1000 (4.8-10.8)
[2019-08-06 06:08] LABS: AGAP 11; BUN 32 mg/dL (8-22); CALCIUM 9.1 mg/dL (8.8-10.2); CHLORIDE 97 mmol/L (98-107); COSMO 285; ESTIMATED GFR > 60; GLUCOSE 136 mg/dL (70-104); POTASSIUM 3.7 mmol/L (3.5-5.1); SODIUM 138 mmol/L (136-145); TCO2 30 mmol/L (25-35)
[2019-08-06] MEDS: LIDODERM TOP SCH (09:31)
[2019-08-06] MEDS: LASIX IV SCH ×2 (09:32→20:38)
[2019-08-06] MEDS: LOVENOX SUBQ SCH (09:33)
[2019-08-06] MEDS: LIPITOR PO SCH (09:33)
[2019-08-06] MEDS: ADDERALL PO SCH ×2 (09:34→12:38)
[2019-08-06] MEDS: ASPIRIN EC PO SCH (09:34)
[2019-08-06] MEDS: COREG PO SCH ×2 (09:35→20:38)
[2019-08-06] MEDS: COZAAR PO SCH (09:35)
[2019-08-06] MEDS: MUCINEX DM PO SCH (09:36)
[2019-08-06] MEDS: PEPCID PO SCH ×2 (09:51→20:38)
[2019-08-06] MEDS: MUCINEX PO SCH ×2 (10:16→20:38)
--- NOTE | 2019-08-06 10:44 | PROGRESS NOTE ---
DATE: 08/06/2019 SUBJECTIVE: The patient is resting comfortably in bed. He has been ambulating in the halls by himself without any difficulty. He complains of pain in the left shoulder region. He states that he cannot lift his arm above his head. OBJECTIVE: Vital Signs: Temperature 97.5 degrees, blood pressure 134/76, heart rate 91, respirations 20, O2 saturation 93% on room air. General: This is a chronically ill-appearing, elderly male, lying in bed in no acute distress. Heart: S1, S2 normal. Lungs: Equal air entry. No wheezing. Abdomen: Positive bowel sounds. Soft, nontender, nondistended. Extremities: No edema, no cyanosis. Neurologic: The patient is alert and oriented x4. LABORATORY DATA: White blood cell count 9.9, hemoglobin 11, hematocrit 37, platelets 267,000. Sodium 138, potassium 3.7, chloride 95, CO2 of 30, BUN 32, creatinine 1, glucose 136, calcium 9.1. ASSESSMENT AND PLAN: 1. Chronic hypoxemic respiratory failure. Improved. The patient is able to sit in his room without supplemental oxygen. 2. Acute systolic congestive heart failure exacerbation. Improved. Continue on the current diuretic regimen. Continue on Coreg and losartan. 3. Constipation. Continue with scheduled laxative therapy. 4. Left shoulder pain, status post recent fall. Will order an MRI of the left shoulder to rule out a possible rotator cuff tear. 5. Chronic obstructive pulmonary disease. Stable. 6. Status post left pneumonectomy secondary to lung cancer. Aware. 7. Right upper lobe lung nodule. The patient reports that he is scheduled to undergo a PET scan in the next few weeks. 8. Hypertension. Controlled. 9. Deep vein thrombosis prophylaxis. Continue on Lovenox. 10. Disposition. Will plan to discharge the patient home possibly tomorrow. cc: Blanca Resendez MD
--- NOTE | 2019-08-06 13:22 | Diag Imaging Result Doc PS360 ---
EXAM: MRI UPPER EXT W/O CONTRA-LEFT INDICATION: possible rotator cuff tear TECHNIQUE: COMPARISON: None. FINDINGS: There is a questionable small defect at the extreme anterior undersurface of the supraspinatus tendon. This could represent a partial-thickness tear. No full-thickness tear is appreciated. The infraspinatus, subscapularis, and teres minor tendons appear to be intact. There is degenerative fraying involving the glenoid labrum. No large labral tear is identified given the limitations of a nonarthrogram MRI. There is extensive AC joint degenerative arthropathy. The biceps long head tendon appears to be intact. IMPRESSION: 1.Questionable partial-thickness tear at the undersurface of the supraspinatus anteriorly. No full-thickness tears are appreciated. 2.Degenerative fraying of the glenoid labrum. 3.Extensive AC joint degenerative arthropathy. Electronically signed by Jorge Luis Gomez 08/06/2019 1:20 PM
[2019-08-06] MEDS: TESSALON PO PRN (20:47)
[2019-08-07] MEDS: DUONEB (A & A) INH SCH ×3 (03:42→11:33)
[2019-08-07] MEDS: PERCOCET-10 PO PRN (09:11)
[2019-08-07] MEDS: ADDERALL PO SCH ×2 (09:12→12:23)
[2019-08-07] MEDS: PEPCID PO SCH (09:13)
[2019-08-07] MEDS: COZAAR PO SCH (09:13)
[2019-08-07] MEDS: LOVENOX SUBQ SCH (09:13)
[2019-08-07] MEDS: LIPITOR PO SCH (09:14)
[2019-08-07] MEDS: COREG PO SCH (09:14)
[2019-08-07] MEDS: LASIX IV SCH (09:15)
[2019-08-07] MEDS: ASPIRIN EC PO SCH (09:15)
[2019-08-07] MEDS: MUCINEX DM PO SCH (09:15)
[2019-08-07] MEDS: MUCINEX PO SCH (09:18)
[2019-08-07] MEDS: LIDODERM TOP SCH (09:20)
[2019-08-07] MEDS: ROBAXIN PO PRN (09:23)
--- NOTE | 2019-08-07 11:34 | Diag Imaging Result Doc PS360 ---
CHEST-PORTABLE - 08/07/2019 INDICATION: dyspnea COMPARISON: 08/05/2019 FINDINGS: Stable changes compatible with left pneumonectomy. The right lung is well-expanded and grossly clear. IMPRESSION: No acute disease. Electronically signed by Roger Dempsey 08/07/2019 11:32 AM
[2019-08-07 11:48] VITALS: BP 123/82
--- NOTE | 2019-08-07 20:52 | ORTHOPAEDICS CONSULTATION ---
DATE: 08/07/2019 PRIMARY CARE PHYSICIAN: Dr. Frank. CHIEF COMPLAINT: Left shoulder pain. HISTORY OF PRESENT ILLNESS: This is a 68-year-old male with a past medical history of lung cancer, hypertension, COPD, CHF, who is on home oxygen and type 2 diabetes who presented to the emergency room with shortness of breath. Apparently, he did have a fall at home. He did not lose consciousness. He has been in the hospital being treated for his COPD exacerbation as well as his congestive heart failure. While he has been in the hospital, he has been complaining of left shoulder pain. X-rays were done of both the chest and clavicle that showed no obvious fracture or dislocation. He did have some chronic degenerative joint changes. Because of his continued left shoulder pain, an MRI was obtained. The MRI did show a questionable partial-thickness tear of the supraspinatus. Orthopedics was consulted for management of the left shoulder. PAST MEDICAL HISTORY: 1. Diabetes type 2. 2. Primary essential hypertension. 3. Lung cancer. 4. COPD on home oxygen. 5. Congestive heart failure. PAST SURGICAL HISTORY: 1. Colectomy. 2. Nasal surgery. 3. Pneumonectomy. 4. Back surgery. ALLERGIES: 1. Epinephrine. 2. Latex. CURRENT MEDICATIONS: 1. Percocet 10 two tablets every 4 hours. 2. Prednisone 10 mg p.o. b.i.d. 3. Aspirin 81 mg daily. 4. Atorvastatin 40 mg p.o. daily. 5. Coreg 6.25 mg p.o. b.i.d. 6. Famotidine 40 mg p.o. every 12 hours. 7. Fentanyl patch 25 mcg transdermal every 3 days. 8. Methocarbamol 500 mg p.o. q.8 hours. SOCIAL HISTORY: Former smoker. Denies current use. No history of illicit drug use or alcohol use. FAMILY HISTORY: Noncontributory. REVIEW OF SYSTEM: A 10-point review of systems was conducted and completed and negative except what was mentioned above in HPI. PHYSICAL EXAMINATION: General: This is a 68-year-old male in no acute distress. Neurological: He is alert and oriented x3. Current Vital Signs: His temperature is 97.8 degrees, pulse 88, respirations 16, blood pressure 123/82. He is saturating 97% on room air. HEENT: Head is atraumatic, normocephalic. Pupils equal, round, reactive to light. Cardiovascular: Regular rate and rhythm. Pulmonary: Breathing is even and nonlabored. Abdomen: Appears nondistended. Extremities: He does have some generalized edema. Left upper extremity exam: He had tenderness to palpation over the AC joint. He is able to move the shoulder pretty well. He does have some trouble with overhead motion. His hand intrinsics are intact. He has a 2+ radial pulse. He has good sensation to the hand. IMAGING: An MRI reviewed and interpreted by Dr. Knott showed a small partial thickness tear of the supraspinatus, otherwise, just degenerative changes overall. He does have significant AC joint degeneration. The clavicle film reviewed and interpreted by Dr. Knott showed no acute bony injury. There were some chronic changes there as well. ASSESSMENT: 1. Left shoulder pain. 2. Partial-thickness tear of the supraspinatus left side. PLAN: The first step for Mr. Hayes will be to get him discharged from the hospital. Once he is discharged, he will follow up with us outpatient. We will see him in clinic and discuss doing a Depo-Medrol injection to help calm his pain down. We will also plan to do formal physical therapy. Hopefully, we can get this shoulder calmed down for him. He would not be a great surgical candidate. So, we are going to try all nonoperative treatment to get this thing calm and get him back to his normal level of activity. He will follow up with us in clinic. Thank you for the consultation. Dictated by BHUMIKA Costa for Reinaldo Knott MD cc: BHUMIKA Costa MD
--- NOTE | 2019-08-12 19:01 | DISCHARGE SUMMARY ---
ADMISSION DATE: 08/03/2019 DISCHARGE DATE: 08/07/2019 FINAL DISCHARGE DIAGNOSES: 1. Chronic hypoxemic respiratory failure. 2. Acute systolic congestive heart failure exacerbation. 3. Constipation. 4. Right upper lobe lung nodule. 5. Status post left pneumonectomy secondary to lung cancer. 6. Chronic obstructive pulmonary disease. 7. Partial-thickness tear of the left supraspinatus. 8. Hypertension. CONSULTATIONS: 1. Cardiology consultation with Dr. Koroma. 2. Orthopedic consultation with Dr. Knott. IMAGIN. Chest x-ray, performed on 08/02/2019, which revealed a prior left pneumonectomy with fluid and gas in the left chest wall. 2. Pulmonary arteriogram, performed on 08/02/2019, which revealed a prior left pneumonectomy, right upper lobe lung nodule, stable small right pleural effusion, right basilar atelectasis, mild edema in the right lung base. 3. Upper extremity MRI, performed on 08/06/2019, which revealed a partial-thickness tear at the undersurface of the supraspinatus anteriorly, and AC joint degenerative arthropathy. 4. Portable chest x-ray, performed on 08/07/2019, which revealed no acute disease. 5. Echocardiogram, performed on 08/03/2019, which revealed an ejection fraction of 30 to 35 percent with global hypokinesis. No pericardial effusion. HOSPITAL COURSE: Mr. Hayes is a 68-year-old male, with a history of left pneumonectomy in January 2019 secondary to left-sided lung cancer, who presented to the ER with a chief complaint of shortness of breath and left-sided chest pain. On admission, a pulmonary arteriogram was done that revealed some mild edema in the right lung as well as a small pulmonary nodule in the right lung. The patient was admitted to the hospitalist service and Cardiology was consulted. An echocardiogram was done that revealed an ejection fraction of 30 to 35 percent with global hypokinesis. It was recommended by the kiln setter that the patient be started on diuretic therapy. The patient was treated with IV Lasix with good results. The pulmonary edema improved on the chest x-ray. The patient complained of left clavicle pain, so an x-ray of the clavicle was done that was noted to be negative for fracture. The patient then stated that he was unable to lift his left arm above his head. An MRI of the left upper extremity was performed which revealed a partial-thickness tear of the undersurface of the supraspinatus anteriorly. Orthopedic Surgery was consulted and they recommended that the patient follow up as outpatient for further discussion on possible steroid injection to help with the pain. They did not feel that the patient would be a great surgical candidate. The patient continued to improve clinically and was transitioned to oral diuretic therapy. The chest x-ray done on the day of discharge showed no acute findings in the right lung outside of the small pulmonary nodules seen on the pulmonary arteriogram. The patient stated that he was feeling better and the patient was cleared for discharge home. DISCHARGE MEDICATIONS: 1. Mucinex 600 mg oral every 12 hours. 2. Lasix 40 mg p.o. daily. 3. Percocet 10 one tab oral every 6 hours p.r.n. for pain. 4. Cozaar 50 mg oral daily. 5. Pepcid 40 mg p.o. every 12 hours. 6. Aspirin 81 mg p.o. daily. 7. Dulcolax 5 mg oral twice a day p.r.n. for constipation. 8. Coreg 6.25 mg oral twice a day. 9. Fentanyl 25 micrograms transdermal every 72 hours. 10. Methocarbamol 500 mg oral every 8 hours p.r.n. for spasms. 11. Lipitor 40 mg p.o. daily. 12. Sennosides with Colace 1 tablet oral twice a day. DISCHARGE DIET: Low-sodium low-cholesterol diet. No more than 1.8 L of fluid a day. ACTIVITY: As tolerated. FOLLOWUP INSTRUCTIONS: 1. The patient will need to follow up with Dr. Frank in 1 week. 2. The patient also needs to follow up with his transportation museum helper in [place] as scheduled. 3. The patient states that he is also scheduled to follow up with his oncologist at [facility] in [place]. cc: Blanca Resendez MD
== END 2019-08-07 13:11 | disposition home or self-care (01) | DRG 190 ==
LOC: ED 12:29 → SUATTDRO 08-03 00:38 → EDIPHOLD 08-03 00:38 → 1N 08-03 02:09
PROVIDERS: ATTEND Internal Medicine

== ENCOUNTER 2019-08-11 15:03 | Observation (INO) ==
[~2019-08-11 15:03] MED LIST: DURAGESIC 25 MICROGM/HR PATCH TD SCH
[2019-08-11] MEDS ORDERED: ASPIRIN PO ONE ×2 (15:44→16:40)
--- NOTE | 2019-08-11 15:53 | EKG Report ---
Test Performed on : 08/11/2019 3:18:47 PM Test Reason : SOB Blood Pressure : / mmHG Vent. Rate : 089 BPM Atrial Rate : 089 BPM P-R Int : 158 ms QRS Dur : 090 ms QT Int : 380 ms P-R-T Axes : -03 -42 081 degrees QTc Int : 462 ms Normal sinus rhythm. Left axis deviation Minimal voltage criteria for LVH, may be normal variant T wave abnormality, consider lateral ischemia Abnormal ECG When compared with ECG of 03-AUG-2019 12:58, No significant change was found Unconfirmed Result
[2019-08-11 15:55] LABS: BASO# 0.02 X1000 (0.0-0.2); BASO% 0.2 % (0.0-0.8); EOS# 0.31 X1000 (0.0-0.7); EOS% 3.5 % (0.0-10.0); HEMATOCRIT 42.5 % (42.0-52.0); LYMPH# 1.55 X1000 (1.2-3.4); LYMPH% 17.3 % (20.5-51.1); MCHC 30.6 g/dL (33-37); MCV 75.4 FL (81-99); MONO% 8.9 % (1.7-9.3); MPV 10.4 FL (7.4-10.4); NEUT# 6.29 X1000 (1.4-6.5); NEUT% 70.1 % (42.2-75.2); PLT 266 X1000 (130-400); RBC 5.64 XMIL (4.7-6.1); RDW 20.9 % (11.5-14.5); WBC 8.97 X1000 (4.8-10.8)
[2019-08-11 16:07] LABS: INR 1.04; PROTIME 13.7 Seconds (11.0-16.0)
[2019-08-11 16:08] LABS: PTT 30.3 Seconds (22.3-41.8)
[2019-08-11 16:11] LABS: AGAP 14; ALB/GLOB RATIO 1.5; ALBUMIN 4.1 g/dL (3.5-5.0); ALKALINE PHOSPHATASE 99 U/L (32-122); BUN 20 mg/dL (8-22); CALCIUM 9.4 mg/dL (8.8-10.2); CHLORIDE 99 mmol/L (98-107); CK PROFILE 38 U/L (24-204); COSMO 284; CREATININE 0.9 mg/dL (0.7-1.2); ESTIMATED GFR > 60; GLUCOSE 132 mg/dL (70-104); GOT 13 U/L (10-34); GPT 15 U/L (10-44); SODIUM 140 mmol/L (136-145); TCO2 27 mmol/L (25-35); TOTAL BILIRUBIN 0.38 mg/dL (0.20-1.00); TOTAL PROTEIN 6.9 g/dL (6.3-8.3)
--- NOTE | 2019-08-11 16:17 | Diag Imaging Result Doc PS360 ---
CHEST-2 VIEWS - 08/11/2019 INDICATION: SOB COMPARISON: 08/07/2019, 08/05/2019, 08/02/2019 FINDINGS: Stable changes of left pneumonectomy. The right lung remains clear. Electronically signed by Roger Dempsey 08/11/2019 4:14 PM
[2019-08-11] MEDS ORDERED: ZOFRAN IV PRN (18:39)
[2019-08-11] MEDS ORDERED: TYLENOL PO PRN (18:39)
[2019-08-11] MEDS ORDERED: SOLU-MEDROL IV ONE (18:40)
[2019-08-11] MEDS: DUONEB (A & A) INH SCH ×2 (19:30→22:19)
[2019-08-11] MEDS ORDERED: BLISTEX MEDICATED BERRY LIP BALM TOP PRN (19:43)
[2019-08-11] MEDS: PERCOCET-10 PO PRN (19:53)
[2019-08-11] MEDS: LOVENOX SUBQ SCH (19:54)
[2019-08-11] MEDS ORDERED: ROBAXIN PO PRN (21:22)
[2019-08-11] MEDS ORDERED: DULCOLAX PO PRN ×2 (21:22→21:45)
--- NOTE | 2019-08-11 21:44 | HISTORY AND PHYSICAL ---
PRIMARY CARE PHYSICIAN: Dr. Uziel Frank. CHIEF COMPLAINT: Shortness of breath and left side pain that radiates into his back that has progressively worsened over the past couple of days since he was discharged from the hospital on 08/07/2019. HISTORY OF PRESENTING ILLNESS: This is a 68-year-old male who presents to [facility] with complaints of shortness of breath and left side chest soreness that radiates into his back that has progressively worsened over the last couple of days. States he was discharged from the hospital this past Sunday after he had a CHF exacerbation. He states that he has home O2 but that he does not wear it all the time, only when needed. His shortness of breath was worse despite trying to use his oxygen and his home nebulizers. Also states that he had a left lung lobectomy about six months ago and has reproducible pain to the left side and left chest wall area. On his last hospitalization on 08/06/2019 he had a left upper extremity MRI that showed a questionable partial-thickness tear at the undersurface of the supraspinatus anteriorly. No full-thickness tear was appreciated. Degenerative fraying of the glenoid labrum and extensive AC joint degenerative arthropathy. States he is unable to lift his left arm without pain and his workup today showed an O2 saturation on 3 L of 94%. Laboratory data was unremarkable with a troponin T high sensitivity initially of 32, proBNP of 1403, which is an improvement when his when he was discharged, the last one being on 08/05/2019 at 2645. Chest x- ray showed stable changes of the left pneumonectomy and the right lung remains clear, but he will be admitted for further evaluation and treatment and is noted to have a heart score of 6. PAST MEDICAL HISTORY: Systolic congestive heart failure, hypertension, COPD, and lung cancer. PAST SURGICAL HISTORY: Left lung lobectomy, colon resection, lymph node removal, and orbital nasal surgery. FAMILY HISTORY: Reviewed and noncontributory. SOCIAL HISTORY: Currently lives with family, is a former smoker and denied any alcohol or illicit drug use. ALLERGIES: Racepinephrine, latex, sulfa, and diazepam. HOME MEDICATIONS: A current list will need to be obtained, reconciled, reviewed and restarted as appropriate. Will place an order for nursing to update and confirm home medications. LABORATORY DATA: Showed a white blood cell count of 8.97, hemoglobin 13, hematocrit 42.5, platelets 266,000. PT and INR of 13.7 and 1.04. Sodium 140, potassium 4.0, chloride 99, CO2 27, BUN of 20, creatinine 0.9, glucose 132. Creatine kinase of 38. Troponin T high sensitivity of 32. ProBNP of 1403. IMAGING: Chest x-ray showed stable changes of a left pneumonectomy and the right lung remains clear. EKG showed normal sinus rhythm at 89. REVIEW OF SYSTEMS: He denied any fever, chills, blurred vision, or dizziness. He has had left side pain that radiates into his back that is reproducible. Shortness of breath. Denied any cough, abdominal pain, constipation, diarrhea, burning or hurting with urination. PHYSICAL EXAMINATION: VITAL SIGNS: Temperature of 98 degrees, pulse 89, respirations 20, blood pressure 105/74, saturating 94% on 3 L via nasal cannula. GENERAL: This is a 68-year-old male who is sitting up in the bed and answers questions appropriately. HEENT: Normocephalic, atraumatic. Normal ENT inspection. Oropharynx and nares are clear. EYES: Pupils are equal, round, and reactive to light and accommodation. Extraocular movements are intact. NECK: Normal inspection. Normal range of motion. LUNGS: Clear to the right side, absent on the left upper, equal lung expansion. Chest wall movement noted. O2 via nasal cannula currently in use. HEART: Regular rate and rhythm. No murmurs, rubs, or gallops. ABDOMEN: Soft, nontender, nondistended. Bowel sounds are present x4 quadrants. MUSCULOSKELETAL: Has 5/5 strength to his lower extremity in his right. Limited strength to the left due to the shoulder tear. NEUROLOGICAL: The cranial nerves II-XII appear grossly intact. ASSESSMENT: 1. Dyspnea. 2. Left side pain. Appears to be musculoskeletal and not cardiac in nature. PLAN: He is being admitted, placed on telemetry and O2 per protocol. We will consult Cardiology because he does have a cardiac history, but it appears this is more musculoskeletal in nature as it is reproducible pain. Place on a heart healthy diet, Lovenox 40 mg subcutaneous every 24. Will need to update and confirm home medications and restart as appropriate. The patient does state that he has not taken his Lasix in the last two days, but did take two tablets today. I think there was some confusion on his part at discharge of when he was supposed to take it, despite the fact that his bottle states to take one tablet daily. So, further orders after seen by attending and by treasury management sales consultant. Dictated by BHUMIKA Keane for Blanca Resendez MD cc: BHUMIKA Keane MD Neil Yeager, MD
--- NOTE | 2019-08-11 22:06 | Diag Imaging Result Doc PS360 ---
CT NECK W/CONTRAST - 08/11/2019 INDICATION: dyspnea and dysphagia COMPARISON: 01/14/2019 FINDINGS: There are mucosal retention cysts in both maxillary sinuses. Other sinuses are clear. The soft tissues of the neck and pharynx are normal. No adenopathy. The great vessels of the neck are patent. There are changes of left pneumonectomy. There is advanced COPD in the right lung. 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 There is pathologic fracture here with some hypertrophic overgrowth. 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 Otherwise, no acute disease. This exam was performed using automated exposure control, adjustment of mA or kV according to patient size, and/or use of iterative reconstruction technique Electronically signed by Roger Dempsey 08/11/2019 10:03 PM
[2019-08-12] MEDS: TESSALON PO PRN ×2 (00:40→21:09)
[2019-08-12] MEDS: PERCOCET-10 PO PRN ×5 (00:40→22:50)
[2019-08-12] MEDS: DUONEB (A & A) INH SCH ×6 (03:34→22:39)
[2019-08-12] MEDS: PRILOSEC PO SCH (06:06)
[2019-08-12] MEDS: LOVENOX SUBQ SCH ×3 (06:51→21:10)
[2019-08-12 08:59] LABS: BASO# 0.01 X1000 (0.0-0.2); BASO% 0.1 % (0.0-0.8); HEMATOCRIT 42.5 % (42.0-52.0); HEMOGLOBIN 13.4 g/dL (14.0-18.0); LYMPH# 0.66 X1000 (1.2-3.4); LYMPH% 8.6 % (20.5-51.1); MCH 23.6 PG (27-31); MCHC 31.5 g/dL (33-37); MCV 74.7 FL (81-99); MONO# 0.24 X1000 (0.11-0.59); MONO% 3.1 % (1.7-9.3); MPV 10.3 FL (7.4-10.4); NEUT# 6.77 X1000 (1.4-6.5); NEUT% 88.2 % (42.2-75.2); PLT 245 X1000 (130-400); RBC 5.69 XMIL (4.7-6.1); RDW 21.8 % (11.5-14.5); WBC 7.68 X1000 (4.8-10.8)
[2019-08-12] MEDS ORDERED: ASPIRIN PO SCH (09:00)
[2019-08-12] MEDS: LASIX PO SCH (09:15)
[2019-08-12] MEDS: COREG PO SCH ×2 (09:15→21:05)
[2019-08-12] MEDS: MUCINEX PO SCH ×2 (09:15→21:05)
[2019-08-12] MEDS: PEPCID PO SCH ×2 (09:15→21:04)
[2019-08-12] MEDS: COZAAR PO SCH (09:15)
[2019-08-12] MEDS: ASPIRIN PO SCH (09:15)
[2019-08-12] MEDS: PERICOLACE PO SCH ×2 (09:16→21:04)
[2019-08-12 10:27] LABS: AGAP 20; BUN 23 mg/dL (8-22); CALCIUM 9.5 mg/dL (8.8-10.2); CHLORIDE 100 mmol/L (98-107); COSMO 292; CREATININE 0.9 mg/dL (0.7-1.2); ESTIMATED GFR > 60; GLUCOSE 160 mg/dL (70-104); POTASSIUM 4.3 mmol/L (3.5-5.1); SODIUM 143 mmol/L (136-145); TCO2 23 mmol/L (25-35)
[2019-08-12] MEDS ORDERED: LIPITOR PO SCH (21:00)
--- NOTE | 2019-08-13 00:25 | PROGRESS NOTE ---
DATE: 08/12/2019 INTERVAL HISTORY: No acute events overnight. SUBJECTIVE: Mr. Hayes is denying new complaints. We discussed about possible metastatic focus on the medial end of the clavicle. I advised him to have followup with outpatient Oncology. He states he is scheduled to receive PET scan later in the month. His vital signs were unremarkable. He is denying any more shortness of breath. OBJECTIVE: Vital signs: Temperature of 98.2 degrees, pulse 78, respiratory rate 18, blood pressure 110/62, saturating 98% on room air. On physical examination, air entry appears adequate in right lung field without any inspiratory crackles. Extremely decreased breath sounds on the left lung sounds. He does have significant tenderness on the medial end of the clavicle. S1, S2 normal. No murmur or gallop. Abdomen is soft, nontender. Mild lower extremity edema. He is alert and oriented x3. LABORATORY DATA: Labs suggestive of hemoglobin of 13.4, platelets of 245,000, BUN of 23, creatinine 0.9. No microbiological data. No new imaging. ASSESSMENT AND PLAN: 1. Dyspnea due to acute systolic congestive heart failure, now improved. 2. Left-sided ribcage pain which appears to be chronic. CT scan of the chest in July 2019 did not have any ribcage metastasis. 3. Metastasis on the medial end of clavicle responsible for clavicular bone pain. I advised him to have outpatient PET scan. 4. Systolic congestive heart failure. Continue home carvedilol, losartan and oral Lasix. 5. Chronic pain. Continue fentanyl patch. 6. Disposition: I will consider discharging the patient in the next 24-48 hours if he remains free of shortness of breath. He is in agreement with the plan. cc: Manuel Penn MD
[2019-08-13] MEDS: PERCOCET-10 PO PRN ×2 (03:30→08:29)
[2019-08-13] MEDS: DUONEB (A & A) INH SCH ×2 (03:47→07:50)
[2019-08-13] MEDS: PRILOSEC PO SCH ×2 (05:56→06:51)
[2019-08-13 07:55] VITALS: BP 115/71
[2019-08-13] MEDS: LASIX PO SCH (08:30)
[2019-08-13] MEDS: ASPIRIN PO SCH (08:30)
[2019-08-13] MEDS: MUCINEX PO SCH (08:30)
[2019-08-13] MEDS: PEPCID PO SCH (08:30)
[2019-08-13] MEDS: COREG PO SCH (08:30)
[2019-08-13] MEDS: PERICOLACE PO SCH (08:30)
[2019-08-13] MEDS: COZAAR PO SCH (08:30)
--- NOTE | 2019-08-13 10:56 | Diag Imaging Result Doc PS360 ---
EXAM: BA SWALLOW W/VIDEO SPEECH THER 08/12/2019 HISTORY: dysphagia TECHNIQUE: 83 images, five mGy, 18 seconds fluoroscopy time. COMMENT: There is penetration of barium on the third and fourth swallow, but no ney aspiration is demonstrated. Otherwise the patient was able swallow barium without difficulty. IMPRESSION: No evidence of aspiration or cricopharyngeal achalasia. Electronically signed by Ney Dent 08/13/2019 10:54 AM
--- NOTE | 2019-08-14 09:12 | DISCHARGE SUMMARY ---
ADMISSION DATE: 08/11/2019 DISCHARGE DATE: 08/13/2019 DISCHARGE DISPOSITION: Home. DISCHARGE CONDITION: Hemodynamically stable. He is alert and oriented x3. He is breathing well on room air. DISCHARGE DIAGNOSES: 1. Acute systolic congestive heart failure exacerbation leading to dyspnea. 2. 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 OTHER DIAGNOSES: 1. History of chronic obstructive pulmonary disease. 2. History of chronic hypoxic respiratory failure on home 2 liters of oxygen through nasal cannula. 3. History of left-sided lung cancer status post left pneumonectomy in January 2019. 4. History of right-sided lung nodules, pending PET scan. 5. History of chronic left-sided chest wall pain related to pneumonectomy. CT scan of thorax was negative for any rib cage metastases in the past. 6. Previous history of likely nodules in the larynx, status post removal, which were thought to be noncancerous by ENT specialist in the past. DISCHARGE MEDICATIONS: 1. Fentanyl 25 mcg every 3 days. 2. Methocarbamol 500 mg every 8 hours. 3. Famotidine 40 mg every 12 hours. 4. Aspirin 81 mg daily. 5. Benzonatate 200 mg t.i.d. as needed. 6. Carvedilol 6.25 mg b.i.d. 7. Senna 1 tablet b.i.d. 8. Dulcolax 5 mg b.i.d. as needed. 9. Atorvastatin 40 mg daily. 10. Guaifenesin 600 mg every 12 hours. 11. Losartan 50 mg daily. 12. Furosemide 40 mg daily. 13. Percocet 10 one tablet every 6 hours as needed. VITALS: At time of discharge, temperature 98.5 degrees, pulse 80, respiratory rate 20, blood pressure 115/71, saturating 99% on room air. PHYSICAL EXAMINATION: General: He is not in any acute distress. Oral cavity: Moist. Lungs: Adequate air entry on right hemithorax without wheeze, rhonchi, crackles. Left lung has still transmitted breath sounds from the right lung. He previously had left lung pneumonectomy. Heart: S1 and S2 normal. No murmur or gallop. No jugular venous distention. Abdomen: Soft, nontender. Extremities: Mild bilateral lower extremity edema. Neurologic: He was alert and oriented x3. LABS: At the time of admission and discharge, hemoglobin 13.4, platelet 245. WBC 7.3, potassium 4.3, BUN 23, creatinine 0.9. ProBNP of 1726. MICROBIOLOGY: None significant. IMAGING: During hospital admission, chest x-ray on August 11 had stable changes of left pneumonectomy, and right lung remains clear. Neck CT performed had bony metastases in the medial head of the left clavicle with bony overgrowth, otherwise no acute disease. Electrocardiogram on presentation had normal sinus rhythm, left axis deviation, minimal voltage criteria for left ventricular hypertrophy and T-wave abnormality, consider lateral ischemia. Speech modified barium swallow was unremarkable. HOSPITAL COURSE SUMMARY: Mr. Hayes is a 68-year-old man with history of left-sided lung cancer status post left pneumonectomy. He has been in and out of [facility] and [facility] several times over the last 4 to 8 weeks, came in again with chief complaints of shortness of breath, left-sided rib cage pain radiating to the back. Apparently, he was discharged on 08/07/2019 for congestive heart failure exacerbation. He was advised to have follow up with outpatient cardiology and oncology, which he was not able to see. In the emergency room, he was found to be a little short of breath though, and on presentation his oxygen saturation was 94% on 2 liters nasal cannula, so he was admitted for further management and was given intravenous Lasix. Apparently, patient was not taking his oral Lasix as prescribed at home, so he was restarted back on his home cardiovascular regimen for systolic congestive heart failure, and within 24 hours he was breathing well on room air. So, it was decided to discharge him on his oral medications and have an outpatient cardiology follow-up. Regarding patient's left-sided rib cage pain, it was thought to be related to chronic pain that was ongoing since his left pneumonectomy in January 2019. He was advised to have an outpatient follow up with Oncology. Chest CT performed in July 2019 on previous admission did not have any rib cage metastases. He was also complaining of pain on the medial head of the clavicle with localized tenderness, so a neck CT was performed which had an exophytic mass around the medial head, which was concerning for osteolytic lesion. He was advised to inform Oncology about this finding. He was also advised to schedule a PET scan according to his oncologist's recommendation. On presentation, he also complained of something sticking inside the throat and some difficulty swallowing for which modified barium swallow was performed which was unremarkable, and later on he mentioned that he did previously have history of probably nodules in the larynx which were removed by ENT in the past. He was advised to have outpatient follow up with ENT. TIME SPENT: Twenty-five minutes were spent in discharging this patient, explaining about his diagnosis, need for medication compliance including cardiovascular regimen, as well as following up with Oncology. All of his questions satisfactorily answered. He understood it. cc: Manuel Penn MD
== END 2019-08-13 09:45 | disposition home or self-care (01) ==
LOC: 3N 15:03 → ED 15:03 → SUATTDRO 18:17 → 3N 18:54
PROVIDERS: ATTEND Internal Medicine

== ENCOUNTER 2019-10-15 10:44 | Inpatient (IN) ==
[2019-10-15] MEDS ORDERED: ASPIRIN PO ONE (10:53)
[2019-10-15] MEDS ORDERED: NITROGLYCERIN TOP ONE (11:07)
[2019-10-15] MEDS ORDERED: LASIX IV ONE (11:07)
--- NOTE | 2019-10-15 11:26 | Diag Imaging Result Doc PS360 ---
CHEST-PORTABLE - 10/15/2019 INDICATION: SOB COMPARISON: 09/01/2019 FINDINGS: Stable changes compatible with previous left pneumonectomy. The right lung demonstrates some stable mild linear atelectasis. No infiltrates or edema. Heart size appears grossly normal. IMPRESSION: No acute disease or complication. Electronically signed by Roger Dempsey 10/15/2019 11:24 AM
--- NOTE | 2019-10-15 11:30 | EKG Report ---
Test Performed on : 10/15/2019 10:58:25 AM Test Reason : shortness of chest /chest pain Blood Pressure : / mmHG Vent. Rate : 096 BPM Atrial Rate : 096 BPM P-R Int : 138 ms QRS Dur : 086 ms QT Int : 348 ms P-R-T Axes : -07 -31 049 degrees QTc Int : 439 ms Normal sinus rhythm. Left axis deviation Minimal voltage criteria for LVH, may be normal variant Abnormal ECG When compared with ECG of 01-SEP-2019 03:58, (Unconfirmed) No significant change was found Unconfirmed Result
[2019-10-15 11:33] LABS: BASO% 1.1 % (0.0-0.8); EOS# 0.12 X1000 (0.0-0.7); EOS% 1.3 % (0.0-10.0); HEMATOCRIT 44.7 % (42.0-52.0); HEMOGLOBIN 14.1 g/dL (14.0-18.0); IMM GRAN# 0.13 X1000 (0.0-0.04); IMM GRAN% 1.4 % (0.0-0.5); LYMPH# 1.52 X1000 (1.2-3.4); LYMPH% 16.3 % (20.5-51.1); MCH 24.5 PG (27-31); MCHC 31.5 g/dL (33-37); MCV 77.7 FL (81-99); MONO# 0.76 X1000 (0.11-0.59); MONO% 8.1 % (1.7-9.3); MPV 10.2 FL (7.4-10.4); NEUT% 71.8 % (42.2-75.2); PLT 260 X1000 (130-400); RBC 5.75 XMIL (4.7-6.1); RDW 20.7 % (11.5-14.5); WBC 9.33 X1000 (4.8-10.8)
[2019-10-15 11:40] LABS: INR 1.01; PROTIME 13.4 Seconds (11.0-16.0); PTT 26.1 Seconds (22.3-41.8)
[2019-10-15 11:53] LABS: AGAP 15; ALB/GLOB RATIO 1.4; ALBUMIN 3.9 g/dL (3.5-5.0); ALKALINE PHOSPHATASE 135 U/L (32-122); BUN 19 mg/dL (8-22); CHLORIDE 93 mmol/L (98-107); CK PROFILE 82 U/L (24-204); COSMO 287; CREATININE 0.9 mg/dL (0.7-1.2); ESTIMATED GFR > 60; GLUCOSE 360 mg/dL (70-104); GOT 18 U/L (10-34); GPT 21 U/L (10-44); POTASSIUM 4.5 mmol/L (3.5-5.1); SODIUM 135 mmol/L (136-145); TCO2 27 mmol/L (25-35); TOTAL PROTEIN 6.6 g/dL (6.3-8.3)
[2019-10-15] MEDS ORDERED: TYLENOL PO ONE (12:36)
[2019-10-15] MEDS ORDERED: HUMULIN R IV ONE (12:37)
[2019-10-15] MEDS ORDERED: MORPHINE IV ONE (12:40)
[2019-10-15 12:41] LABS: URINE SOURCE CLEAN CATCH
[2019-10-15 12:43] LABS: BILIRUBIN URINE NEGATIVE (NEGATIVE); BLOOD URINE NEGATIVE (NEGATIVE); COLOR STRAW; GLUCOSE URINE 1000 mg/dL (NEGATIVE); KETONE URINE NEGATIVE (NEGATIVE); LEUKOCYTES URINE NEGATIVE (NEGATIVE); NITRITE URINE NEGATIVE (NEGATIVE); PH URINE 6.5; PROTEIN URINE NEGATIVE (NEGATIVE); SP GRAVITY URINE 1.009; TURBIDITY URINE CLEAR (CLEAR); UROBILINOGEN URINE NORMAL (NORMAL)
[2019-10-15 12:44] LABS: UR EPITHELIAL CELLS <10 /HPF (<10); URINE BACTERIA NEGATIVE /HPF; URINE RBC <10 /HPF (<10); URINE WBC <10 /HPF (<10)
--- NOTE | 2019-10-15 13:54 | Diag Imaging Result Doc PS360 ---
EXAM: CT HEAD W/O CONTRAST HISTORY: right hand numbness TECHNIQUE: CT head without contrast COMPARISON: 10/20/2011 FINDINGS: No parenchymal hemorrhage. No epidural or subdural hematoma. No subarachnoid hemorrhage. No mass identified on this noncontrasted exam. No hydrocephalus. No sinus opacification. IMPRESSION: No hemorrhage. Negative brain CT without contrast. This exam was performed using automated exposure control, adjustment of mA or kV according to patient size, and/or use of iterative reconstruction technique. Electronically signed by Nirav Pineda 10/15/2019 1:52 PM
--- NOTE | 2019-10-15 14:16 | EKG Report ---
Test Performed on : 10/15/2019 2:11:02 PM Test Reason : repeat for CP Blood Pressure : / mmHG Vent. Rate : 098 BPM Atrial Rate : 098 BPM P-R Int : 140 ms QRS Dur : 088 ms QT Int : 362 ms P-R-T Axes : 036 097 012 degrees QTc Int : 462 ms Normal sinus rhythm. Possible Left atrial enlargement Rightward axis T wave abnormality, consider inferior ischemia Abnormal ECG When compared with ECG of 15-OCT-2019 10:58, (Unconfirmed) QRS axis shifted right Inverted T waves have replaced nonspecific T wave abnormality in Inferior leads Unconfirmed Result
--- NOTE | 2019-10-15 14:17 | PROVIDER DOCUMENTATION ---
This chart was entered by Augusta Gomez Scribe, acting as scribe for Michael Alicia MD. HPI-Chest Pain - General Chief Complaint: Chest Pain Stated Complaint: HAVING CHEST PAIN Time Seen by Provider: 10/15/19 10:54 Source: RN/ Allergies/Adverse Reactions: Patient Allergies Allergy/AdvReac Type Severity Reaction Status Date / Time racepinephrine Allergy Severe ANAPHYLAXIS Verified 08/22/19 09:08 Latex, Natural Rubber Allergy Intermediate SWELLING Verified 08/22/19 09:08 Sulfa (Sulfonamide Allergy Intermediate RASH Verified 08/22/19 09:08 Antibiotics) diazepam [From Valium] AdvReac Mild LETHARGY Verified 08/22/19 09:08 Home Medications: Home Medication List Medication Instructions Recorded Confirmed Last Taken Type Aspirin EC 81 mg PO DAILY 08/02/19 09/01/19 08/02/19 History Atorvastatin Calcium [Lipitor] 40 mg PO DAILY 08/02/19 09/01/19 08/02/19 History Bisacodyl [Dulcolax] 5 mg PO BID PRN 08/02/19 09/01/19 08/02/19 History Carvedilol 6.25 mg PO BID 08/02/19 09/01/19 08/02/19 History Fentanyl 25 mcg TD Q3DAYS 08/02/19 09/01/19 08/08/19 History 25 Methocarbamol 500 mg PO Q8HR PRN 08/02/19 09/01/19 08/02/19 History Sennosides/Docusate Sodium 1 tab PO BID 08/02/19 09/01/19 08/11/19 04:00 History [Docusate Sodium-Senna Tablet] Furosemide [Lasix] 40 mg PO DAILY #30 tab 08/07/19 09/01/19 Unknown Rx Guaifenesin E.r. [Mucinex] 600 mg PO Q12HR #60 tab 08/07/19 09/01/19 Unknown Rx Losartan [Cozaar] 50 mg PO DAILY #30 tab 08/07/19 09/01/19 Unknown Rx Oxycodone/APAP 10 mg/325 mg 1 ea PO Q6H PRN PRN #20 tab 08/07/19 09/01/19 Unknown Rx [Percocet-10] - History of Present Illness-CP Nature of Presenting Problem: [pt is a 69 yom c/o intermittent sharp cp w/associated sob 2-3 days getting gradually worse. pt also had rt hand numbness. pt was seen at [facility] 2 days ago, was advised to take more lasix. pt has been taking more lasix (extra dose) and continues to be sob and have cp. no fever, chills or covid exposure. Location: reports: other (rt sided) Chest Pain Radiation: reports: other (left side) Quality of Pain: reports: sharp Severity in ED: mild Onset/Duration: 2 days ago, 3 days ago Timing: still present, getting worse Context/Activities at Onset: reports: none Modifying Factors: improves with: nothing Associated Symptoms: reports: shortness of breath Similar Symptoms Previously?: Yes Recently Seen Here or By Another Healthcare Provider: Yes ([facility] 2 days ago ) Review of Systems - Adult - REVIEW OF SYSTEMS - ADULT Constitutional: reports: no symptoms reported. denies: chills, fever, night sweats Eyes: reports: no symptoms reported Ears, Nose, Mouth & Throat: reports: no symptoms reported Cardiovascular: reports: see HPI, chest pain. denies: heart murmur, irregular heart rate, palpitations Respiratory: reports: see HPI, shortness of breath. denies: cough, dyspnea on exertion, excessive sputum production Gastrointestinal: reports: no symptoms reported Genitourinary: reports: no symptoms reported Musculoskeletal: reports: no symptoms reported Integumentary: reports: no symptoms reported Neurological: reports: see HPI, numbness (rt hand). denies: dizziness/vertigo, headache/migraines, loss of balance Psychiatric: reports: no symptoms reported Endocrine: reports: no symptoms reported Hematologic/Lymphatic: reports: no symptoms reported Allergic/Immunologic: reports: no symptoms reported All Other Systems: Reviewed and Negative Past History - Adult - PAST MEDICAL HISTORY-ADULT Review of Records: reports: Nursing Assessment Review, Medications Reviewed, Social history reviewed & non-contributory. Major Childhood Illnesses: reports: denies history Cardiovascular: reports: CHF, HTN Respiratory: reports: COPD, cancer Gastrointestinal: reports: denies history Obstetrical/Gynecological: reports: denies history Genitourinary: reports: denies history Musculoskeletal: reports: denies history Neurological: reports: denies history Endocrine/Immune: reports: Diabetes Other Conditions: reports: denies history - PRIOR SURGERIES/PROCEDURES Surgical/Procedure History: reports: other - IMMUNIZATION STATUS Childhood Immunizations: See Nurse Assessment Flu Vaccine: See Nurse Assessment - FAMILY HISTORY Family History: reviewed, not pertinent - SOCIAL HISTORY Smoking: other (former smoker) Substance Use: none/never Physical Exam-General - PHYSICAL EXAM-ADULT Initial Vital Signs Reviewed: Yes - CONSTITUTIONAL General Appearance: alert, no apparent distress. negative: lethargic, slow to respond, obtunded - EYES Eyes: PERRL/EOMI - HEAD, EARS, NOSE, MOUTH & THROAT HENMT: normocephalic/atraumatic, moist mucous membranes - NECK Neck: non-tender, full range of motion, supple, normal inspection - RESPIRATORY Respiratory: chest non-tender, no pleuratic chest pain, no respiratory distress, no accessory muscle use, decreased breath sounds (diminished), other (tachypnic). negative: lungs clear, normal breath sounds, rhonchi, stridor, wheezing - CARDIOVASCULAR Cardiovascular: normal peripheral pulses, no edema, no gallop, no JVD, no murmur , tachycardia (mild). negative: regular rate, rhythm, extra beats, friction rub, irregularly irregular - GASTROINTESTINAL (ABDOMEN) Abdominal Exam: normal bowel sounds, non tender, soft - MUSCULOSKELETAL Back Exam: normal inspection Extremity: normal range of motion, non-tender, normal inspection, no pedal edema , normal capillary refill. 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, grossly normal, no motor/sensory deficits - PSYCHIATRIC Psych/Mental Status: normal mood/affect, normal thought content, normal thought process, oriented x 3 - HEART Score HEART Score: History: Moderately Suspicious HEART Score: ECG: Non-Specific Repolarization Disturbance/LBBB/PM HEART Score: Age: > or = 65 Years HEART Score: Risk Factors for Atherosclerotic Disease: > or = 3 Risk Factors or History of Atherosclerotic Disease HEART Score: Troponin: 1-3x Normal Limit Total HEART Score:: 7 Progress - PLAN OF CARE/RESULTS Progress/Plan/Lab Results: Vital Signs - 8 hr 10/15/19 10:45 10/15/19 12:29 Temperature 97.4 F L Pulse Rate 97 H 101 H Respiratory Rate 24 20 Blood Pressure 156/105 134/97 O2 Sat by Pulse Oximetry 97 96 Laboratory Results - last 24 hr 10/15/19 10/15/19 10/15/19 11:18 11:18 11:18 WBC RBC Hgb Hct MCV MCH MCHC RDW Std Deviation Plt Count MPV Immature Gran % (Auto) Neut % (Auto) Lymph % (Auto) [place] % (Auto) Eos % (Auto) Baso % (Auto) Immature Gran # (Auto) Neut # (Auto) Lymph # (Auto) [place] # (Auto) Eos # (Auto) Baso # (Auto) PT INR PTT (Actin FS) Sodium 135 L Potassium 4.5 Chloride 93 L Carbon Dioxide 27 Anion Gap 15 BUN 19 Creatinine 0.9 Estimated GFR/1.73 m2 > 60 BUN/Creatinine Ratio 21 Glucose 360 H Calculated Osmolality 287 Calcium 9.0 Total Bilirubin 0.60 AST 18 ALT 21 Alkaline Phosphatase 135 H Creatine Kinase 82 Troponin T High Sens 35 H Ffr-[id number]-Zhzhuderhzz Pept 753 H Total Protein 6.6 Albumin 3.9 Globulin 2.7 Albumin/Globulin Ratio 1.4 Plasma Lactate Urine Source Urine Color Urine Turbidity Urine pH Ur Specific [place] Urine Protein Ur Glucose (Stick) Ur Ketones (Stick) Urine Blood Urine Nitrite Urine Bilirubin Urobilinogen Dipstick Urine Leukocytes Urine WBC (Auto) Urine RBC (Auto) U Epithel Cells (Auto) Urine Bacteria (Auto) 10/15/19 10/15/19 10/15/19 11:18 11:18 11:18 WBC 9.33 RBC 5.75 Hgb 14.1 Hct 44.7 MCV 77.7 L MCH 24.5 L MCHC 31.5 L RDW Std Deviation 20.7 H Plt Count 260 MPV 10.2 Immature Gran % (Auto) 1.4 H Neut % (Auto) 71.8 Lymph % (Auto) 16.3 L [place] % (Auto) 8.1 Eos % (Auto) 1.3 Baso % (Auto) 1.1 H Immature Gran # (Auto) 0.13 H Neut # (Auto) 6.70 H Lymph # (Auto) 1.52 [place] # (Auto) 0.76 H Eos # (Auto) 0.12 Baso # (Auto) 0.10 PT 13.4 INR 1.01 PTT (Actin FS) 26.1 Sodium Potassium Chloride Carbon Dioxide Anion Gap BUN Creatinine Estimated GFR/1.73 m2 BUN/Creatinine Ratio Glucose Calculated Osmolality Calcium Total Bilirubin AST ALT Alkaline Phosphatase Creatine Kinase Troponin T High Sens [id number]-Itjiznqcqus Pept Total Protein Albumin Globulin Albumin/Globulin Ratio Plasma Lactate 1.4 Urine Source Urine Color Urine Turbidity Urine pH Ur Specific [place] Urine Protein Ur Glucose (Stick) Ur Ketones (Stick) Urine Blood Urine Nitrite Urine Bilirubin Urobilinogen Dipstick Urine Leukocytes Urine WBC (Auto) Urine RBC (Auto) U Epithel Cells (Auto) Urine Bacteria (Auto) 10/15/19 10/15/19 12:31 13:14 WBC RBC Hgb Hct MCV MCH MCHC RDW Std Deviation Plt Count MPV Immature Gran % (Auto) Neut % (Auto) Lymph % (Auto) [place] % (Auto) Eos % (Auto) Baso % (Auto) Immature Gran # (Auto) Neut # (Auto) Lymph # (Auto) [place] # (Auto) Eos # (Auto) Baso # (Auto) PT INR PTT (Actin FS) Sodium Potassium Chloride Carbon Dioxide Anion Gap BUN Creatinine Estimated GFR/1.73 m2 BUN/Creatinine Ratio Glucose Calculated Osmolality Calcium Total Bilirubin AST ALT Alkaline Phosphatase Creatine Kinase Troponin T High Sens 35 H [id number]-Lnenufittqd Pept Total Protein Albumin Globulin Albumin/Globulin Ratio Plasma Lactate Urine Source CLEAN CATCH Urine Color STRAW Urine Turbidity CLEAR Urine pH 6.5 Ur Specific [place] 1.009 Urine Protein NEGATIVE Ur Glucose (Stick) 1000 A Ur Ketones (Stick) NEGATIVE Urine Blood NEGATIVE Urine Nitrite NEGATIVE Urine Bilirubin NEGATIVE Urobilinogen Dipstick NORMAL Urine Leukocytes NEGATIVE Urine WBC (Auto) <10 Urine RBC (Auto) <10 U Epithel Cells (Auto) <10 Urine Bacteria (Auto) NEGATIVE Orders Category Date Time Status Cardiac Monitoring DIRECTED Care 10/15/19 10:53 Active NEWS Score 2-4:Order NEWS Lactate Series NOW Care 10/15/19 10:51 Active Nursing- Obtain EKG once Care 10/15/19 12:39 Active Oxygen Therapy- ED Nursing DIRECTED Care 10/15/19 10:53 Active Saline Loc NOW Care 10/15/19 10:53 Active CHEST-PORTABLE [RAD] Stat Exams 10/15/19 11:[address] HEAD W/O CONTRAST [CT] Stat Exams 10/15/19 12:38 Completed CBC WITH ELECTRONIC DIFF [HEME] Stat Lab 10/15/19 11:18 Completed CK PROFILE [SP CHEM] Stat Lab 10/15/19 11:18 Completed COMPREHENSIVE METABOLIC PANEL [CHEM] Stat Lab 10/15/19 11:18 Completed LACTATE, PLASMA [CHEM] Lab 10/15/19 14:13 Ordered LACTATE, PLASMA [CHEM] Lab 10/15/19 17:15 Uncollected LACTATE, PLASMA [CHEM] Q3H Lab 10/15/19 11:18 Completed PRO B-NATRIURETIC PEPTIDE Stat Lab 10/15/19 11:18 Completed PROTIME WITH INR [COAG] Stat Lab 10/15/19 11:18 Completed PTT [COAG] Stat Lab 10/15/19 11:18 Completed TROPONIN T HIGH SENSITIVITY Stat Lab 10/15/19 11:18 Completed TROPONIN T HIGH SENSITIVITY Stat Lab 10/15/19 13:14 Completed URINALYSIS W/POSS RFLX CULT [URINALYSIS] Stat Lab 10/15/19 12:31 Completed Acetaminophen [Tylenol] Med 10/15/19 12:36 Discontinued 1,000 mg PO NOW ONE Aspirin Med 10/15/19 10:53 Discontinued 325 mg PO NOW ONE Furosemide [Lasix] Med 10/15/19 11:07 Discontinued 80 mg IV NOW ONE Insulin Human Regular [Humulin R] Med 10/15/19 12:37 Discontinued 10 unit IV NOW ONE Morphine Med 10/15/19 12:40 Discontinued 2 mg IV NOW ONE Nitroglycerin Med 10/15/19 11:07 Discontinued 0.5 inch TOP NOW ONE CP/SOB/Palp >45 yrs of Age Stat Oth 10/15/19 10:53 Ordered EKG [EKG] Stat Ther 10/15/19 10:53 Draft EKG [EKG] Stat Ther 10/15/19 12:39 Ordered Result Diagrams: 10/15/19 11:18 10/15/19 11:18 - REASSESSMENT Reassessment #1 Time Reassessed: 14:14 Status: improving (but still having occasional CP. Given ASA, NTP, iv insulin for glucose, IV morphine for pain, po tylenol for pain. A review of old records reveals an ECHO done 1 month ago by [facility], but no recent stress testing) - EKG 1 Time of EKG reading by physician:: 11:00 EKG Read and Signed by:: Michael Alicia EKG Interpretation (*Must complete 3 of following elements*): Abnormal Rate: 96 Rhythm: NSR [place]: left QRS: [facility] NH Interval: normal ST Wave: normal Comments: bilat enlargement, NO STEMI 2 Time of EKG reading by physician:: 14:17 EKG Read and Signed by:: Michael Alicia EKG Interpretation (*Must complete 3 of following elements*): Abnormal Rate: 98 Rhythm: NSR [place]: left QRS: LV[facility] NH Interval: normal (LAE) ST Wave: non-specific ST changes Prior EKG Comparison: unchanged from prior - XRAY 1 XRAY Study: Chest Impression: See EMR Report ( CHEST-PORTABLE - 10/15/2019 INDICATION: SOB COMPARISON: 09/01/2019 FINDINGS: Stable changes compatible with previous left pneumonectomy. The right lung demonstrates some stable mild linear atelectasis. No infiltrates or edema. Heart size appears grossly normal. IMPRESSION: No acute disease or complication. Electronically signed by Roger Dempsey 10/15/2019 11:24 AM 10/15/19 1124) - CT/MRI 1 CT Study: Head Impression: See EMR Report ( EXAM: CT HEAD W/O CONTRAST HISTORY: right hand numbness TECHNIQUE: CT head without contrast COMPARISON: 10/20/2011 FINDINGS: No parenchymal hemorrhage. No epidural or subdural hematoma. No subarachnoid hemorrhage. No mass identified on this noncontrasted exam. No hydrocephalus. No sinus opacification. IMPRESSION: No hemorrhage. Negative brain CT without contrast. This exam was performed using automated exposure control, adjustment of mA or kV according to patient size, and/or use of iterative reconstruction technique. Electronically signed by Nirav Pineda 10/15/2019 1:52 PM 10/15/19 1352 Interpreting Physician: Nirav Pineda MD) - CONSULTS/PCP/HOSPITALIST Notification #1 *Consult/PCP/Hospitalist*: BHUMIKA Morelos Time Discussed: 14:15 Consult Disposition: Will see in ED, Admit Departure - Departure Date of Disposition Decision: 10/15/19 Time of Disposition Decision: 14:15 DIAGNOSIS: Precordial chest pain, Uncontrolled type 2 diabetes mellitus with hyperglycemia, without long-term current use of insulin Disposition: ADMITTED INPATIENT 09 Certified Medical Emergency: Emergent Condition: Stable Referrals and Follow-Ups: Uziel Frank [Primary Care Provider] - - Critical Care Note This patient required my direct & personal management of CC.: No Attestation - Physician/ CRISTINA Attestation Patient care was provided by Advanced Practice Provider:: No The physician spent face to face time with patient:: Yes Advanced Practice Provider documentation review:: Supervising physician onsite and consulted in the evaluation and care of this patient. The physician did have a face to face encounter with the patient. This chart was documented by the indicated scribe, (Augusta Gomez Scribe) and accurately reflects the services I performed and decisions made by me, Michael Alicia MD, as attested by the provider's signature.
[2019-10-15] MEDS ORDERED: TYLENOL PO PRN (16:34)
[2019-10-15] MEDS ORDERED: DULCOLAX PO PRN (16:36)
[2019-10-15] MEDS ORDERED: NEURONTIN PO ONE (17:15)
[2019-10-15] MEDS ORDERED: XANAX PO ONE (17:27)
--- NOTE | 2019-10-15 17:42 | HISTORY AND PHYSICAL ---
ADDENDUM: The patient was seen and examined by me [id number]. All the laboratory, vital signs, and new images as well as old images were seen. The patient presented to the emergency department with a chief complaint of shortness of breath and chest pain, which I do not think is cardiac- related. His troponins are negative x2 and his proBNP actually is much better compared with the previous ones. He is complaining mostly of right-sided chest pain. He is tender to palpation at the level of the left upper thoracic area, anterior part and lateral part of the thoracic area around 6 to 9 space, radiated to the back. I do believe this is related to a neuropathic type pain. This patient has a history of left pneumonectomy because he has a history of cancer. Chest x-ray basically is not showing any acute problem or complication. His white blood cell count is normal, as well as his kidney function. He is complaining of right-sided throat pain but his throat looks good. Recently, some of his teeth in the lower and left area have been pulled out and he has been taking nystatin because of oral thrush, which I will continue. I do not see too much though. He went to [facility] a couple days ago and they recommended to increase the dose of the Lasix which he did, but he is still short of breath. Like I said, I think his shortness of breath is more related to a neuropathic pain than any kind of cardiac condition. He does have one lung though. As per the patient, a few weeks ago, he was about to start chemotherapy because his cancer came back. Apparently he has a metastatic disease in his left collarbone, some part of his back and head but no brain though. I will consult hematology/oncology department. Apparently, he sees one of the doctors of the [facility]. I do not see any T-wave problems or suggesting an acute coronary syndrome at this moment, but we will continue to monitor his troponin. He has a recent echocardiogram that showed right ventricular dysfunction as well as left ventricular systolic dysfunction. He has a history of congestive heart failure and we will continue with his medications. Since I believe this could be related to a neuropathic type pain, I will give him a dose of Neurontin. I will continue with his Percocet and at [facility], he received a fentanyl patch 25 mcg which I will continue as well. I will wait for the recommendations of the hematology/oncology department. I agree with the rest of the nurse practitioner's assessment and plan. cc: Tito Valenzuela MD
[2019-10-15] MEDS: GLUCOPHAGE PO SCH (17:49)
[2019-10-15] MEDS: SOLU-MEDROL IV SCH (17:49)
--- NOTE | 2019-10-15 18:56 | HISTORY AND PHYSICAL ---
CHIEF COMPLAINT: Chest pain. 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 Troponins were negative. His proBNP was actually better than prior. He complains of right-sided chest pain, particularly in the clavicular area, as well as the left upper thoracic area. This can be reproduced by palpation. He does state that he has had this pain for quite some time. This is currently managed at home with fentanyl patches as well as Percocet. Troponins were negative x3. He was ruled out by EKG. PAST MEDICAL HISTORY: 1. Left lung cancer, status post pneumonectomy. 2. Metastatic clavicular cancer. 3. Systolic congestive heart failure. 4. Hypertension. 5. COPD. PAST SURGICAL HISTORY: 1. Left lung lobectomy. 2. Colon resection. 3. Lymph node removal. 4. Orbital nasal surgery. SOCIAL HISTORY: He lives with family members. He denies any alcohol, tobacco, or illicit drug use. ALLERGIES: Racemic epinephrine, latex, sulfa, and diazepam. HOME MEDICATIONS: A list will be obtained by the nursing staff and once verified, will review and restart as appropriate. REVIEW OF SYSTEMS: Discussed with patient with pertinent positives stated in the HPI. He denied any syncope or dizziness, any productive cough, any fevers or chills, any nausea, vomiting, diarrhea, constipation, black or bloody vomitus or stools, hematuria, dysuria, frequency, urgency. PHYSICAL EXAMINATION: GENERAL: This is a 69-year-old gentleman who is lying on the stretcher in the emergency room in no distress. VITAL SIGNS: Blood pressure is 133/84, respirations are 20, heart rate 74, temperature is 98.1 degrees oral, with O2 saturations 98 to 99 percent. HEENT: Head is normocephalic, atraumatic. Mucous membranes are moist. NECK: Supple, with trachea midline. CARDIOVASCULAR: Regular rate and rhythm. S1 and S2 are appreciated. No murmur. PULMONARY: Breath sounds are clear on the right. Chest rises and falls symmetrically with respiration. GASTROINTESTINAL: Abdomen is soft, nontender, and nondistended with bowel sounds in all 4 quadrants. NEUROLOGIC: He is alert and oriented x3. LABS: WBC is 9.3 with hemoglobin 14.1, hematocrit 44.7, and platelets of 260,000. Sodium 135, potassium 4.5, BUN 19, creatinine 0.9 with a glucose of 360. Troponins were 35, 35, and 37. ProBNP is 753. Urinalysis is essentially negative. Chest x-ray revealed no acute disease. CT of the head revealed no hemorrhage. Negative brain CT without contrast. ASSESSMENT AND PLAN: 1. Chest pain. This is very likely neuropathic pain. This is primarily on the left over his pneumonectomy incision. We will continue his home medications, fentanyl and Percocet. Add Neurontin. 2. History of recent oral thrush. We will continue his nystatin. 3. Hypertension. We will continue his home medications once dose is verified. 4. Diabetes mellitus. Pattern blood glucose with sliding scale insulin. 5. History of systolic congestive heart failure with no exacerbation. 6. Chronic obstructive pulmonary disease. 7. Further treatments pending hospital course. Dictated by BHUMIKA De Los Santos for Tito Valenzuela MD cc: BHUMIKA De Los Santos MD
[2019-10-15] MEDS: PERCOCET-10 PO PRN (20:12)
[2019-10-15] MEDS: MYCOSTATIN SUSP PO SCH (20:13)
[2019-10-15] MEDS: HUMALOG SUBQ SCH ×2 (20:13→23:01)
[2019-10-16] MEDS: PERCOCET-10 PO PRN ×2 (04:36→13:21)
[2019-10-16] MEDS: HUMALOG SUBQ SCH ×4 (06:49→21:49)
[2019-10-16 08:10] LABS: BASO% 0.7 % (0.0-0.8); EOS# 0.02 X1000 (0.0-0.7); EOS% 0.1 % (0.0-10.0); HEMATOCRIT 43.5 % (42.0-52.0); HEMOGLOBIN 13.8 g/dL (14.0-18.0); IMM GRAN# 0.09 X1000 (0.0-0.04); IMM GRAN% 0.7 % (0.0-0.5); LYMPH# 1.93 X1000 (1.2-3.4); LYMPH% 14.3 % (20.5-51.1); MCH 24.5 PG (27-31); MCHC 31.7 g/dL (33-37); MCV 77.3 FL (81-99); MONO# 0.85 X1000 (0.11-0.59); MONO% 6.3 % (1.7-9.3); MPV 10.7 FL (7.4-10.4); NEUT# 10.48 X1000 (1.4-6.5); NEUT% 77.9 % (42.2-75.2); PLT 297 X1000 (130-400); RBC 5.63 XMIL (4.7-6.1); RDW 20.9 % (11.5-14.5); WBC 13.47 X1000 (4.8-10.8)
[2019-10-16] MEDS: ADDERALL PO SCH ×3 (08:19→17:57)
[2019-10-16] MEDS: LIPITOR PO SCH (08:19)
[2019-10-16] MEDS: LASIX PO SCH (08:20)
[2019-10-16] MEDS: TESSALON PO PRN ×2 (08:20→21:49)
[2019-10-16] MEDS: MYCOSTATIN SUSP PO SCH ×4 (08:20→21:49)
[2019-10-16] MEDS: ASPIRIN EC PO SCH (08:21)
[2019-10-16] MEDS: PEPCID PO SCH (08:21)
[2019-10-16] MEDS: NEURONTIN PO SCH ×2 (08:21→21:49)
[2019-10-16] MEDS: MUCINEX PO SCH ×2 (08:21→21:48)
[2019-10-16] MEDS: GLUCOPHAGE PO SCH ×2 (08:22→19:08)
[2019-10-16] MEDS: COREG PO SCH (08:23)
[2019-10-16] MEDS: COZAAR PO SCH (08:26)
[2019-10-16 08:30] LABS: HEMOGLOBIN A1C 10.4 % (4.8-6.0)
[2019-10-16 08:40] LABS: IRON SATURATION 16 %; TIBC 280 ug/dL; TOTAL IRON 44 ug/dL (53-167); UNBOUND IRON 236 ug/dL (112-346)
[2019-10-16 08:46] LABS: AGAP 14; ALB/GLOB RATIO 1.3; ALBUMIN 3.5 g/dL (3.5-5.0); ALKALINE PHOSPHATASE 107 U/L (32-122); BUN 25 mg/dL (8-22); CALCIUM 9.2 mg/dL (8.8-10.2); CHLORIDE 93 mmol/L (98-107); COSMO 282; CREATININE 0.7 mg/dL (0.7-1.2); ESTIMATED GFR > 60; GLUCOSE 302 mg/dL (70-104); GOT 13 U/L (10-34); GPT 19 U/L (10-44); POTASSIUM 3.8 mmol/L (3.5-5.1); SODIUM 133 mmol/L (136-145); TCO2 26 mmol/L (25-35); TOTAL BILIRUBIN 0.39 mg/dL (0.20-1.00); TOTAL PROTEIN 6.1 g/dL (6.3-8.3)
[2019-10-16 08:48] LABS: FERRITIN 85 ng/mL (30-400)
--- NOTE | 2019-10-16 11:50 | PROGRESS NOTE ---
DATE: 10/16/2019 SUBJECTIVE: The patient seems to be doing a little bit better compared with yesterday. I would like the opinion of the security guard dispatcher oncologist regarding his metastatic disease/cancer. I added some cough medication to his regimen. OBJECTIVE: Vital signs: Temperature 98.3 degrees, pulse 90, respiratory rate 18, blood pressure 118/71, oxygen saturation 95% on room air. HEENT: Head normocephalic, no trauma. PERRLA. Neck: Supple. No JVD. No masses. Central trachea. Chest: He has a big scar on the left thoracic area due to previous pneumonectomy, also he is tender to palpation at the level of the right upper thoracic area and mid thoracic area on the lateral part, radiated to the back, it sounds to me like a neuropathic type pain. Abdomen: Soft, nontender, nondistended. No hepatosplenomegaly. Extremities: No edema, no clubbing, no cyanosis. Neurological: The patient is awake, alert, he is oriented. LABORATORY DATA: WBC 13.4, hemoglobin 13.8, hematocrit 43.5, platelet 297,000. Sodium 133, potassium 3.8, chloride 93, bicarbonate 26, BUN 25, creatinine 0.7, glucose 302. Hemoglobin A1c 10.4, calcium 9.2, albumin 3.5, vitamin B12 of 435, folic acid 19.6 today. ASSESSMENT AND PLAN: 1. Chest pain. For me, this looks like neuropathic type pain. I have placed this patient on gabapentin and also pain medication. He recently went to [facility] and he was discharged and they told him to increase his Lasix. His x-ray looks fine and I will go back to his home dose, continue with fentanyl and Percocet. 2. History of oral thrush. Continue with nystatin. 3. Hypertension. Continue home medications. 4. Diabetes, uncontrolled with a hemoglobin A1c of 10.4. I have placed this patient on sliding scale insulin and pattern blood sugar. 5. History of systolic congestive heart failure with no exacerbation. 6. Chronic obstructive pulmonary disease, not in exacerbation. 7. History of chronic hypoxemic respiratory failure, on home oxygen. 8. History of left-sided lung cancer, status post left pneumonectomy in January 2019. Apparently, he follows up with a doctor at [facility] [place]. 9. Previous history of nodules in the larynx, status post removal, which apparently were not related to malignancy. 10. As per the patient, metastatic disease at the level of the left side of the chest, maybe ribs and back. 11. I will wait for the hematology oncologist recommendations, I do believe he is pending a PET scan and as per the patient, he apparently was due to start chemotherapy 3 weeks ago. cc: Tito Valenzuela MD
[2019-10-16] MEDS: SOLU-MEDROL IV SCH ×2 (13:12→19:12)
[2019-10-17] MEDS: PERCOCET-10 PO PRN ×2 (02:46→12:57)
[2019-10-17] MEDS: HUMALOG SUBQ SCH ×4 (06:32→22:15)
[2019-10-17] MEDS: SOLU-MEDROL IV SCH (06:32)
[2019-10-17 07:55] LABS: AGAP 12; BUN 31 mg/dL (8-22); CALCIUM 9.3 mg/dL (8.8-10.2); CHLORIDE 97 mmol/L (98-107); COSMO 286; CREATININE 0.8 mg/dL (0.7-1.2); ESTIMATED GFR > 60; GLUCOSE 264 mg/dL (70-104); POTASSIUM 4.4 mmol/L (3.5-5.1); SODIUM 135 mmol/L (136-145); TCO2 26 mmol/L (25-35)
[2019-10-17] MEDS: MYCOSTATIN SUSP PO SCH ×4 (10:22→22:17)
[2019-10-17] MEDS: PEPCID PO SCH (10:22)
[2019-10-17] MEDS: MUCINEX PO SCH ×3 (10:22→22:16)
[2019-10-17] MEDS: ADDERALL PO SCH ×3 (10:22→17:10)
[2019-10-17] MEDS: LASIX PO SCH (10:23)
[2019-10-17] MEDS: GLUCOPHAGE PO SCH ×2 (10:23→17:14)
[2019-10-17] MEDS: ASPIRIN EC PO SCH (10:23)
[2019-10-17] MEDS: COZAAR PO SCH (10:23)
[2019-10-17] MEDS: COREG PO SCH (10:23)
[2019-10-17] MEDS: NEURONTIN PO SCH ×3 (10:23→22:17)
[2019-10-17] MEDS: PREDNISONE PO SCH (10:24)
[2019-10-17] MEDS: LIPITOR PO SCH (10:24)
[2019-10-17] MEDS: TESSALON PO PRN ×2 (10:34→22:17)
[2019-10-17] MEDS: DURAGESIC 25 MICROGM/HR PATCH TD SCH (12:11)
[2019-10-17] MEDS: DURAGESIC 12 MICROGM/HR PATCH TD SCH (12:58)
--- NOTE | 2019-10-17 14:02 | HEMO/ONC CONSULTATION ---
DATE: 10/16/2019 ADMITTING PHYSICIAN: Dr. Stanton. REQUESTING PHYSICIAN: Dr. Stanton. We appreciate this consult. CHIEF COMPLAINT: Lung cancer. HISTORY OF PRESENT ILLNESS: Mr. 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 The patient is currently being followed by Dr. Guzman of [facility] with plans to initiate chemotherapy in the near future. The patient presented to [facility] Emergency Department with complaints of severe chest pain and shortness of breath. Cardiology workup was initiated and troponins were negative. ProBNP had slightly improved since before. The patient continues to complain of right-sided chest pain in the clavicular area as well as left upper thoracic region that was reproducible by palpation. The patient is currently managed at home with fentanyl patch 25 mcg every 3 days and Percocet 10 mg q.6 h. The patient was admitted secondary to intractable pain. We are consulted as the patient is known to [facility] in need of initiation of chemotherapy. PAST MEDICAL HISTORY: 1. Left lung cancer status post pneumonectomy, now with progression to stage IV disease, squamous cell histology. 2. Systolic congestive heart failure. 3. Hypertension. 4. Chronic obstructive pulmonary disease. PAST SURGICAL HISTORY: 1. Left lung lobectomy. 2. Colon resection. 3. Lymph node resection. 4. Orbital nasal surgery. SOCIAL HISTORY: The patient denies tobacco, alcohol or illicit drug. FAMILY HISTORY: Negative for any hematologic or oncologic disease. MEDICATIONS ON ADMISSION: 1. Percocet. 2. Fentanyl patch. 3. Adderall. 4. Aspirin enteric-coated. 5. Lipitor. 6. Coreg. 7. Pepcid. 8. Lasix. 9. Neurontin. 10. Mucinex. 11. Metformin. 12. Cozaar. 13. Zofran. ALLERGIES: Racemic epinephrine, latex, sulfa, and diazepam. REVIEW OF SYSTEMS: A 14-point review of systems was negative except for mentioned in HPI. PHYSICAL EXAMINATION: General: Mr. Tobias Hayes is pleasant 69-year-old male lying supine in bed in no immediate distress. Vital Signs: Temperature 97.6, blood pressure 134/75, heart rate 110, respirations 18, O2 saturation 97% on room air. HEENT: Normocephalic, atraumatic. Mucous membranes are pink and moist. Sclerae is anicteric. Extraocular movements intact. Neck: Supple. Lungs: Clear to auscultation bilaterally. Chest expansion equal bilaterally. CV: S1, S2 is heard without murmur, rub or gallop. Abdomen: Nondistended. Extremities: No clubbing, cyanosis, or edema. Dermatologic: No rashes, bruises or lesions. Neurologic: The patient is awake, alert, and oriented x3. He has no focal deficit. Gait is normal. ASSESSMENT AND PLAN: 1. Squamous cell lung cancer with progression to stage IV with metastasis to the bone and scalp, [id number] negative. The patient was awaiting initiation of treatment with carboplatin, Abraxane and Keytruda. We will proceed with treatment upon discharge at [facility] in [place] as the patient lives close by. Additionally upon discharge, we will consult Dr. Barbara Weber for palliative radiation of rib lesion. 2. Chest pain, most likely secondary to skeletal metastasis. Cardiac workup was negative. The patient is currently on a fentanyl patch and Percocet. Would continue pain medication as ordered. 3. Oral thrush. The patient will continue on nystatin as ordered. 4. Hypertension. The patient is on blood pressure medication with good control of blood pressure. 5. Diabetes mellitus type 2. The patient continues on metformin and is on a sliding scale insulin while hospitalized. 6. Systolic congestive heart failure without exacerbate at this time. 7. Chronic obstructive pulmonary disease, stable without exacerbation at this time. 8. We will follow along with you and make further recommendations pending outcomes. The above reflects the history, exam, assessment, and plan of Dr. Brooke. Dictated by BHUMIKA Cunningham for Rogelio Brooke MD cc: BHUMIKA Cunningham MD
--- NOTE | 2019-10-17 14:22 | PROGRESS NOTE ---
DATE: 10/17/2019 SUBJECTIVE: The patient is feeling better today compared to yesterday. He is complaining of mouth pain and chest pain still. His blood sugar is still elevated and actually his hemoglobin A1c has been elevated as well at 10.4. I will increase his dose of metformin. I will put him on Lantus 15 units today and probably he needs to follow that up as an outpatient. I will go ahead and stop the IV steroids and put him on p.o. steroids. Hopefully this patient can be discharged tomorrow. He has been evaluated by Hematology/Oncology Department and they will do chemotherapy as an outpatient next week. OBJECTIVE: Vital Signs: Temperature 98.5 degrees, pulse 109, respiratory rate 16, blood pressure 150/90, oxygen saturation 98 on room air. HEENT: Head normocephalic, no trauma. PERRLA. Neck: Supple. No JVD. No masses. Central trachea. Chest: He has a big scar at the level of the mid thoracic area due to previous pneumonectomy. He he has some tenderness to palpation at the level of the right upper thoracic area and lateral part of the mid thoracic area, radiating to the back. It looks like a neuropathic type pain. Abdomen: Soft, nontender, nondistended. No hepatosplenomegaly. Extremities: No edema, no clubbing, no cyanosis. Neurological: The patient is awake and he is oriented. LABORATORY DATA: Sodium 135, potassium 4.4, chloride 97, bicarbonate 26, BUN 31, creatinine 0.8, glucose 264, calcium 9.3. ASSESSMENT AND PLAN: 1. Chest pain. Seems to be getting better and seems to be also related to neuropathic type pain and/or cancer. He has been followed by Hematology/Oncology Department and they are planning to treat this patient apparently next week, they will set up everything for him. I have started this patient on gabapentin 300 mg twice a day but today, I will increase it to t.i.d. to help him a little bit more. I will continue with the fentanyl patch and the Percocet. 2. History of oral thrush. Continue with nystatin. 3. Hypertension. We will continue home medication. 4. Diabetes, uncontrolled. I have increased his dose of metformin from 500 twice a day to 1000 twice a day. I have started this patient on Lantus today, his 1st dose would be during the night. His hemoglobin A1c is 10.4. 5. History of systolic congestive heart failure, not in exacerbation. Continue with the same management. 6. Chronic obstructive pulmonary disease, not in exacerbation. 7. History of chronic hypoxemic respiratory failure, on home oxygen. 8. History of left-sided lung cancer, status post pneumonectomy in January 2019 and apparently he has some metastatic disease now. 9. Previous history of nodules in the larynx, status post removal, which apparently were not related to malignancy. I have stopped the intravenous steroids and I have placed this patient on p.o. treatment. I think we can continue for at least 1 week of treatment and taper this down and stop it completely. I have increased his dose of metformin. I have started this patient on Lantus and for his pain, also I increased the dose of the gabapentin from twice a day to 3 times a day. He will follow up with Dr. Brooke an outpatient. I do believe this patient can be discharged in the next 24 hours. His pain is getting better. cc: Tito Valenzuela MD
[2019-10-18] MEDS: PERCOCET-10 PO PRN ×5 (02:56→22:47)
[2019-10-18] MEDS ORDERED: DURAGESIC 25 MICROGM/HR PATCH TD SCH (06:00)
[2019-10-18] MEDS: TESSALON PO PRN ×3 (06:03→17:16)
[2019-10-18] MEDS: HUMALOG SUBQ SCH ×4 (06:32→21:32)
[2019-10-18 07:16] LABS: HEMATOCRIT 46.5 % (42.0-52.0); HEMOGLOBIN 14.9 g/dL (14.0-18.0); MCV 77.9 FL (81-99); MPV 10.4 FL (7.4-10.4); RBC 5.97 XMIL (4.7-6.1); RDW 21.7 % (11.5-14.5)
[2019-10-18 07:43] LABS: AGAP 15; BUN 35 mg/dL (8-22); CALCIUM 9.5 mg/dL (8.8-10.2); CHLORIDE 93 mmol/L (98-107); COSMO 280; ESTIMATED GFR > 60; GLUCOSE 228 mg/dL (70-104); POTASSIUM 4.1 mmol/L (3.5-5.1); SODIUM 132 mmol/L (136-145); TCO2 24 mmol/L (25-35)
[2019-10-18] MEDS: NEURONTIN PO SCH ×3 (10:08→21:31)
[2019-10-18] MEDS: COZAAR PO SCH (10:08)
[2019-10-18] MEDS: ASPIRIN EC PO SCH (10:08)
[2019-10-18] MEDS: COREG PO SCH (10:08)
[2019-10-18] MEDS: LIPITOR PO SCH (10:08)
[2019-10-18] MEDS: PREDNISONE PO SCH (10:09)
[2019-10-18] MEDS: LASIX PO SCH (10:09)
[2019-10-18] MEDS: MYCOSTATIN SUSP PO SCH ×4 (10:10→21:31)
[2019-10-18] MEDS: ADDERALL PO SCH ×3 (10:10→16:20)
[2019-10-18] MEDS: MUCINEX PO SCH ×2 (10:12→21:31)
[2019-10-18] MEDS: GLUCOPHAGE PO SCH ×2 (10:16→16:16)
[2019-10-18] MEDS: PEPCID PO SCH (10:25)
[2019-10-18] MEDS: DUONEB (A & A) INH PRN ×3 (11:57→20:02)
--- NOTE | 2019-10-18 12:31 | PROGRESS NOTE ---
DATE: 10/18/2019 SUBJECTIVE: The patient reports still having excruciating back pain mostly noted in the thoracic area. Denies any fever, chills, or shortness of breath. OBJECTIVE: Vital Signs: Temperature 98.1 degrees, heart rate 92, respiratory rate 20, blood pressure 119/85, O2 saturation 98% on 3 L nasal cannula. General: This is a chronically ill- looking, 69-year-old male, lying in bed, in no acute distress. Cardiovascular: S1, S2 heard. No murmurs, gallops, or rubs. Regular rate and rhythm. Respiratory: The patient has mild tenderness to palpation at the level of the right upper thoracic area on the lateral part of the mid thoracic area as well radiating into the back. It seems neuropathic pain. Abdomen: Soft, nontender to palpation. Bowel sounds present. No organomegaly. Extremities: No clubbing, cyanosis, or edema. Peripheral pulses present in both legs. Neurological: Patient alert and oriented x3. Moves 4 extremities. LABORATORY DATA: White cell count 13.0, hemoglobin 14.9, hematocrit 46.9, platelets 281,000. Sodium 132. Normal creatinine. Glucose 228. ASSESSMENT AND PLAN: 1. Chest pain. Apparently, the pain is neuropathic. So patient has being increased to gabapentin 300 mg 1 tablet p.o. 3 times per day. That is not helping apparently so I think at this point, we will try to increase to 600 two times per day and see how he does. We will monitor this patient closely to see if there is any other reaction like headaches or lethargy. 2. History of left-sided lung cancer status post pneumonectomy in fallMarch 2019. Patient reports that pain is not getting better and also he thinks that his right lung is going to the left side and insists that is a possibility so just to check there is no metastases and check the anatomy of the lungs we are going to do a CT of the chest without contrast. We will go from there. 3. Systolic congestive heart failure. Patient is not in any exacerbation. We will continue with the same management. 4. Uncontrolled diabetes mellitus. Patient has been increasing the doses of metformin and also he has been started on Lantus but blood sugars are still high. Also, patient is going to as stated stop prednisone. Will continue with the same management. 5. History of oral thrush. We will continue with nystatin. 6. Hypertension. Blood pressure is under control. We will continue with same management. 7. Disposition. We will continue to monitor this patient closely. cc: Tee Barillas MD MTDD
--- NOTE | 2019-10-18 17:09 | Diag Imaging Result Doc PS360 ---
EXAM: CT THORAX W/CONTRAST HISTORY: pneumonia TECHNIQUE: CT chest with intravenous contrast COMPARISON: 08/02/2019 FINDINGS: The left lung has been removed. The mediastinum is shifted to the left hemithorax. Interval decrease in the size of the fluid collection in the left hemithorax. No air with in it on the current exam. No cardiomegaly. No aortic aneurysm or dissection. Normal opacification of the pulmonary arteries. There are small mediastinal nodes. The right lung is hyperexpanded. No infiltrates in the right lung. Development of a large lytic lesion in the scapula. Development of a smaller lytic lesion in the T1 vertebra. Lysis and fracture to the proximal left clavicle remains. IMPRESSION: 1.No pneumonia 2.Bony metastases 3.Left lobectomy This exam was performed using automated exposure control, adjustment of mA or kV according to patient size, and/or use of iterative reconstruction technique. Electronically signed by Nirav Pineda 10/18/2019 5:06 PM
[2019-10-18] MEDS: LANTUS INSULIN SUBQ SCH (19:03)
[2019-10-19] MEDS: TESSALON PO PRN ×4 (00:28→21:25)
[2019-10-19] MEDS: ZOFRAN IV PRN ×2 (00:30→05:48)
[2019-10-19] MEDS: PERCOCET-10 PO PRN ×4 (04:36→21:25)
[2019-10-19] MEDS: DUONEB (A & A) INH PRN ×6 (04:45→23:37)
[2019-10-19] MEDS: HUMALOG SUBQ SCH ×4 (06:40→21:20)
[2019-10-19] MEDS: ADDERALL PO SCH ×3 (11:34→16:31)
[2019-10-19] MEDS: MUCINEX PO SCH ×4 (11:34→22:42)
[2019-10-19] MEDS: ASPIRIN EC PO SCH (11:35)
[2019-10-19] MEDS: COREG PO SCH (11:35)
[2019-10-19] MEDS: MYCOSTATIN SUSP PO SCH ×4 (11:35→21:20)
[2019-10-19] MEDS: PEPCID PO SCH (11:35)
[2019-10-19] MEDS: LASIX PO SCH (11:36)
[2019-10-19] MEDS: LIPITOR PO SCH (11:36)
[2019-10-19] MEDS: COZAAR PO SCH (11:36)
[2019-10-19] MEDS: LANTUS INSULIN SUBQ SCH (11:46)
[2019-10-19] MEDS: PREDNISONE PO SCH (11:46)
--- NOTE | 2019-10-19 11:48 | PROGRESS NOTE ---
DATE: 10/19/2019 SUBJECTIVE: Patient reports that last night, he had an episode of shortness of breath. He continues to have back pain but he reports that taking 2 tablets of Percocet is too much for him. We will back off on the doses of that medication. OBJECTIVE: Vital Signs: Temperature 97.6 degrees, heart rate 94, respiratory rate 20, blood pressure 114/57, O2 saturation 97% on 3 L nasal cannula. General Examination: This is a chronically ill-looking, 69-year-old, male, lying in bed, in no acute distress. Cardiovascular Examination: S1 and S2 heard. No murmurs, gallops, or rubs. Regular rate and rhythm. Respiratory Examination: Mild tenderness to palpation at the level of the right upper thoracic area, on the lateral part of the mid thoracic area as well, radiating to the back. Decreased breath sounds in the right lung. Abdomen: Soft, nontender to palpation. Bowel sounds present. No organomegaly. Extremities: No clubbing, cyanosis, or edema. Peripheral pulses present in both legs. Neurological Examination: The patient is alert and oriented x3. Moves 4 extremities. Laboratory Data: There are no labs from today. ASSESSMENT AND PLAN: 1. Chest pain. Patient reports that pain is well controlled with current medication but two tablets of Percocet is very sedating so he requests to change to just one tablet by mouth every 4 hours as needed. He reports one episode of shortness of breath. We have checked a CT with contrast yesterday which did not show any pneumonia. It showed bony metastasis and left lobectomy. There is the development of a large lytic lesion in the scapula that I think is the reason why this patient is having this pain. As we mentioned before, we are going to make some changes to his current pain medication. We will keep him in the hospital one more day. If he is feeling better tomorrow, I think we can let him go. 2. History of left lung cancer, status post pneumonectomy in March 2019. Hematology/oncology is following this patient. I think they are not planning to do anything while this patient is here. I do not know if this is a new metastasis for him but in any case, hematology/oncology is following. 3. Systolic congestive heart failure. Patient is stable, not in any exacerbation. We will continue to monitor. 4. Uncontrolled diabetes mellitus. The blood sugar this morning is 209. We increased the dose of Lantus a little bit. We will continue to monitor this patient closely. 5. Disposition. If the patient is feeling better tomorrow, we will most likely discharge him. cc: Tee Barillas MD
[2019-10-19] MEDS: GLUCOPHAGE PO SCH ×2 (16:28→20:37)
[2019-10-19] MEDS: NEURONTIN PO SCH (20:38)
[2019-10-19] MEDS: DULCOLAX PO SCH (21:20)
[2019-10-20] MEDS: PERCOCET-10 PO PRN ×2 (00:27→05:18)
[2019-10-20] MEDS: ZOFRAN IV PRN (00:30)
[2019-10-20] MEDS: DURAGESIC 25 MICROGM/HR PATCH TD SCH (05:18)
[2019-10-20] MEDS: HUMALOG SUBQ SCH ×2 (06:53→12:08)
[2019-10-20] MEDS: DUONEB (A & A) INH PRN (07:42)
[2019-10-20] MEDS: PREDNISONE PO SCH (08:32)
[2019-10-20] MEDS: COZAAR PO SCH (08:33)
[2019-10-20] MEDS: ASPIRIN EC PO SCH (08:33)
[2019-10-20] MEDS: COREG PO SCH (08:33)
[2019-10-20] MEDS: PEPCID PO SCH (08:33)
[2019-10-20] MEDS: DULCOLAX PO SCH (08:34)
[2019-10-20] MEDS: LIPITOR PO SCH (08:34)
[2019-10-20] MEDS: GLUCOPHAGE PO SCH (08:34)
[2019-10-20] MEDS: LASIX PO SCH (08:34)
[2019-10-20] MEDS: MYCOSTATIN SUSP PO SCH ×2 (08:35→12:15)
[2019-10-20] MEDS: ADDERALL PO SCH ×2 (08:42→12:16)
[2019-10-20] MEDS: TESSALON PO PRN ×2 (08:43→12:16)
[2019-10-20] MEDS: LANTUS INSULIN SUBQ SCH (08:43)
[2019-10-20] MEDS: DURAGESIC 12 MICROGM/HR PATCH TD SCH ×2 (08:49→11:59)
[2019-10-20] MEDS: MUCINEX PO SCH (10:33)
[2019-10-20 13:09] VITALS: BP 138/82
--- NOTE | 2019-10-20 13:14 | DISCHARGE SUMMARY ---
ADMISSION DATE: 10/15/2019 DISCHARGE DATE: 10/20/2019 ADMISSION DIAGNOSES: 1. Chest pain. 2. History of recent oral thrush. 3. Hypertension. 4. Diabetes mellitus type 2. 5. History of congestive heart failure, systolic, no exacerbation. 6. Chronic obstructive pulmonary disease. DISCHARGE DIAGNOSES: 1. Chest pain, neuropathic, controlled with pain medication. 2. History of left lung cancer, status post pneumonectomy in March 2019. 3. Systolic congestive heart failure, chronic, not acute. 4. Uncontrolled diabetes mellitus type 2, still with some hyperglycemia but the dose of Lantus was increased. CONSULTATIONS: Dr. Brooke. SURGERIES AND PROCEDURES: None. HOSPITAL COURSE: Mr. Tobias Hayes is a 69-year-old male with a history of metastatic lung cancer with osteolytic metastasis, status post left pneumonectomy in March of 2019, also with COPD. Came in with complaints of chest pain and shortness of breath. Cardiac workup was negative. Chest pain was on the right, also in the clavicular area and thoracic area. This was also reproduced with palpation. He had been having the pain for quite some time. Medications included narcotics, fentanyl and Percocet, to control the pain. He was hyperglycemic with his type 2 diabetes. That was managed with insulin and now he is stable for discharge home. DISCHARGE VITAL SIGNS: Temperature 97.4 degrees, heart rate 86, respiratory rate 16, blood pressure 119/61, O2 saturation 100% on 2 L nasal cannula. DISCHARGE LABORATORY DATA: Last time he had labs was on the . White count was 13,000, hemoglobin was 14, hematocrit 46, platelet count 281,000. Sodium 132, potassium 4.1, BUN 35, creatinine is 1.0, glucose this morning was 186, calcium 9.5. No microbiology. PERTINENT IMAGING: Chest x-ray on admission, no acute disease. Head CT negative. Then had a chest CT on the . No pneumonia. It showed bony metastasis and showed the left lobectomy. EKG was sinus rhythm, rate of 98, QTc was 462. DISCHARGE MEDICATIONS: 1. Protonix 40 mg p.o. daily. 2. Percocet 10s one tablet p.o. q.4 hours p.r.n. 3. Lantus 15 units subcutaneous daily. 4. Fentanyl patch 25 mcg, two which will be a total of 50 mcg transdermal every 72 hours. 5. Cozaar 50 mg p.o. daily. 6. Mucinex 600 mg every 12 hours. 7. Prednisone taper. 8. Pepcid 40 mg p.o. daily. 9. Nystatin p.o. every 6 hours for 7 days. 10. Lipitor 40 mg p.o. daily. 11. Lasix 20 mg p.o. daily. 12. Metformin 500 mg p.o. twice daily. 13. DuoNeb every 4 hours p.r.n. 14. Bisacodyl 10 mg p.o. twice daily p.r.n. 15. Coreg 6.25 mg p.o. daily. 16. Benzonatate 200 mg p.o. t.i.d. p.r.n. 17. Aspirin enteric-coated 81 mg p.o. daily. 18. Adderall 30 mg p.o. t.i.d. PHYSICIAN FOLLOWUP: Dr. Frank and also Dr. Brooke and that was supposed to have been for 9:30 this morning. DISCHARGE DIET: Heart healthy. DISCHARGE ACTIVITY: No driving while taking pain medications. DISCHARGE INSTRUCTIONS: If your condition changes, contact your physician and/or return to the emergency department. Changes may include, but are not limited to shortness of breath, increased fatigue, excessive bleeding, unexplained weight loss or gain, unmanageable pain, signs or symptoms of infection. Notify the physician for a fever of 101 or above, shortness of breath, chest pain, uncontrolled nausea, vomiting, pain in her back, neck, abdomen, jaw, or arm, and worsening symptoms or other concerns. DISCHARGE DISPOSITION: Home. Dictated by BHUMIKA Forte for Tee Barillas MD Addendum: Patient seen and examined by myself. Agree with BHUMIKA note. It reflects my assessment and plan. Patient is being discharged in stable condition. Will be seen by Oncologist PCP within a week. cc: BHUMIKA Forte MD [facility]
== END 2019-10-20 13:28 | disposition home or self-care (01) | DRG 543 ==
LOC: ED 10:44 → 4N 10:44 → SUATTDRO 10-17 11:26
PROVIDERS: ATTEND Internal Medicine